=== PATIENT | female | born 1945 | race Two or more races ===

== ENCOUNTER → 2016-09-25 | Outpatient (CLI) | payer MEDICARE, BC, OTHER ==
--- NOTE | 2016-09-26 09:00 | BD ---
EXAMINATION TYPE: MG DEXA axial skeleton. DATE OF EXAM: 09/25/2016 11:03 AM CLINICAL HISTORY: Height: 59.5 inches Weight: 98 FRAX RISK QUESTIONS: Alcohol (3 or more units per day): no Family History (Parent hip fracture): unsure Glucocorticoids (More than 3mos): no (Ex: prednisone, prednisolone, methylprednisolone, dexamethasone, and hydrocortisone). History of Fracture in Adulthood: yes Secondary Osteoporosis: 1. Type 1 Diabetes: no, type II 2. Hyperthyroidism: no 3. Menopause before 45: no 4. Malnutrition: unsure 5. Chronic liver disease: no Rheumatoid Arthritis: no Current Tobacco Use: no RISK FACTORS HISTORY OF: Other Fractures since Age 52: yes, lower leg When: 8-9 years ago Family History of Osteoporosis: yes Drink Alcohol: occasionally Active: somewhat Diet low in dairy products/other sources of calcium: at least one serving a day (glass of milk) Postmenopausal woman: yes Take estrogen and/or progesterone medications: no Lost more than 2 inches in height since high school: unsure Frequent falls: no Poor Health: unsure Hyperparathyroidism: no Adrenal Insufficiency: no MEDICATIONS: Prednisone or other steroids: no Thyroid Medications: no Osteoporosis Medications: yes Which medication: Actonel How Long: at least since 2013 Additional Medications: Femara Additional History: Breast CA age 65, chemo, radiation leg pain EXAM MEASUREMENTS: Bone mineral densitometry was performed using the [employer] System. Bone mineral density as measured about the Lumbar spine is: ----- L1-L4(G/cm2): 0.911 T Score Values are as follows: ----- L2: -2.2 ----- L3: -2.9 ----- L4: -2.2 ----- L1-L4: -2.2 Bone mineral density has: Increased 0.4% since study of: 06/01/2013 Bone mineral density about the R hip (g/cm2): 0.885 Bone mineral density about the L hip (g/cm2): 0.861 T Score values are as follows: -----R Neck: -1.1 -----L Neck: -1.3 -----R Total: -1.2 -----L Total: -1.3 Bone mineral density has: Decreased -2.3% since study of: 06/01/2013 IMPRESSION: Osteopenia (T Score between -2.5 and -1 as noted by T score values L2, L4, Bilateral Necks & Bilater al Totals There is slightly increased risk of fracture and the patient may be considered for treatment. Re-Screen 2-5 years. Osteoporosis (T Score less than -2.5) as noted by T Score values at the L3 There is increased fracture risk and therapy is usually indicated based on age. Re-Screen 1-2 years NOTE: T-SCORE=SD OF THE YOUNG ADULT MEAN.
== END | disposition home or self-care (01) ==
LOC: RADBDWWP 09:36
PROVIDERS: ATTEND Internal Medicine Hematology & Oncology
DX: M85.80 Other specified disorders of bone density and structure, unspecified site (principal); M81.0 Age-related osteoporosis without current pathological fracture; C50.919 Malignant neoplasm of unspecified site of unspecified female breast; N95.1 Menopausal and female climacteric states
CPT/HCPCS: 77080

== ENCOUNTER → 2016-10-06 | Outpatient (CLI) | payer MEDICARE, BC | END | disposition home or self-care (01) | LOC: RADPETMAIN 12:25 | PROVIDERS: ATTEND Internal Medicine Hematology & Oncology | DX: Z53.9 Procedure and treatment not carried out, unspecified reason (principal) ==

== ENCOUNTER → 2016-10-13 | Outpatient (CLI) | payer MEDICARE, BC | END | disposition home or self-care (01) | LOC: RADPETMAIN 12:08 | PROVIDERS: ATTEND Internal Medicine Hematology & Oncology | DX: Z53.9 Procedure and treatment not carried out, unspecified reason (principal) ==

== ENCOUNTER → 2016-10-20 | Outpatient (CLI) | payer MEDICARE, BC ==
--- NOTE | 2016-10-22 10:48 | PE ---
Nuclear medicine PET/CT HISTORY: Breast carcinoma Patient received 17.8 mCi F-18 FDG intravenously and delayed scanning was performed from the skull ba se to the mid thighs. Localization and attenuation correction CT scan was performed. Exam correlated to previous CT chest abdomen pelvis 05/03/2015 Neck and chest: There is no hypermetabolic uptake evident. No evident adenopathy. Right-sided Port-A- Cath is present with the distal tip of the catheter within the cavoatrial junction level. Coronary ar berta calcifications are present. There is no pleural or pericardial effusion. Right upper lobe lung n odule measuring approximately 4 mm is again noted and is stable. Left upper lobe lung nodule measurin g approximately 5 mm is stable. There are dense dystrophic calcifications within the aorta. Breast ma ss is not evident. No hypermetabolic uptake within the breasts. Abdomen pelvis: There is no retroperitoneal adenopathy. No evident liver mass. Prominence of the adre nal glands left greater than right is noted. 5 mm hypodensity within the left lobe of the liver is st able and likely represents a cyst. No suspicious hypermetabolic uptake. Indeterminate 4 mm calcificat ion associated with the mid left kidney may be vascular. Osseous structures: Unremarkable. No suspicious hypermetabolic uptake. IMPRESSION: No abnormality is evident to suggest metastatic disease. Stable lung nodules.
== END | disposition home or self-care (01) ==
LOC: RADPETMAIN 07:35
PROVIDERS: ATTEND Internal Medicine Hematology & Oncology
DX: C50.919 Malignant neoplasm of unspecified site of unspecified female breast (principal); R91.8 Other nonspecific abnormal finding of lung field
CPT/HCPCS: 78815; A9552

== ENCOUNTER 2016-11-14 10:23 | Day surgery (SDC) | payer MEDICARE, BC ==
[2016-11-13 11:43] VITALS: BMI 21.9
[~2016-11-14 10:23] MED LIST: DEXAMETHASONE SOD PHOSPHATE 10 MG/ML 1 ML VIAL IV ONE; HYDROmorphone 1 MG/ML 1 ML SYRINGE IVP PRN; LACTATED RINGERS 1,000 ML IV SCH; LIDOCAINE 1% 20 ML VIAL (10MG/ML) FOR IV START INTRADERMA PRN; MIDAZOLAM 2 MG/2 ML VIAL IV PRN; ONDANSETRON 4 MG/2 ML VIAL IVP ONE; SCOPOLAMINE 1.5MG/72HR PATCH TRANSDERM ONE; ceFAZolin 2 GM in SODIUM CHLORIDE 0.9% 100 ML IVPB ONE
[2016-11-14 10:43] VITALS: RESP 16; TEMP 94.2
[2016-11-14 11:03] LABS: Glucose,Whole Blood 226 mg/dL (75-99)
[2016-11-14] MEDS ORDERED: LIDOCAINE 1% INJ 10MG/ML (20 ML MDV) ONE (12:22)
[2016-11-14] MEDS ORDERED: fentaNYL (PF) 50 MCG/ML 2 ML AMP ONE (12:22)
[2016-11-14] MEDS ORDERED: PROPOFOL 10 MG/ML 20 ML VIAL IV ONE (12:22)
[2016-11-14] MEDS ORDERED: MIDAZOLAM 2 MG/2 ML VIAL ONE (12:22)
[2016-11-14] MEDS ORDERED: BUPIVACAIN-EPI 0.5%-1:200,000 30 ML VIAL SQ ONE ×2 (12:47)
--- NOTE | 2016-11-14 13:45 | P.OP ---
Date of Procedure: 11/14/16 Preoperative Diagnosis: History of breast cancer Postoperative Diagnosis: Same Procedure(s) Performed: Right mediport removal Implants: Anesthesia: MAC, local Surgeon: Alessia Baltazar Pathology: none sent Condition: stable Disposition: PACU Indications for Procedure: 70 years old female status post breast cancer treatment presents for Mediport removal. Informed consent obtained and patient elected to undergo the procedure Operative Findings: Right subclavian Mediport removal Description of Procedure: The patient was brought to the operating room and placed in supine position with both arms out. IV sedation was given as per anesthesia team. Chlorhexidine was used to prep the neck and chest and sternal drapes applied. A timeout was performed to verify correct patient and correct procedure. 10 mL of local anesthetic was infiltrated along the prior incision. A #10 blade was used to make the incision. This was deepened to the subcu tissues tissue and the port was identified along with the connected catheter. The scar tissue around the catheter was removed. The port as well as the catheter was removed without any difficulty. Hemostasis was checked. Pressure was held for 5 minutes. The incision was closed in 2 layers using 3-0 Vicryl and 4-0 Monocryl. Dermabond skin glue applied. Sterile dressings applied. Patient tolerated the procedure well and was taken to post anesthesia care unit in stable condition
[2016-11-14 13:47] VITALS: BP 133/77; PULSE 88
[2016-11-14 13:50] LABS: Glucose,Whole Blood 212 mg/dL (75-99)
== END 2016-11-14 14:22 | disposition home or self-care (01) ==
LOC: OR 10:23
PROVIDERS: ATTEND Surgery
DX: Z45.2 Encounter for adjustment and management of vascular access device (principal); C50.919 Malignant neoplasm of unspecified site of unspecified female breast; Z92.3 Personal history of irradiation; Z92.21 Personal history of antineoplastic chemotherapy; E11.9 Type 2 diabetes mellitus without complications; I10 Essential (primary) hypertension; Z79.84 Long term (current) use of oral hypoglycemic drugs; Z79.2 Long term (current) use of antibiotics; Z79.899 Other long term (current) drug therapy; F17.200 Nicotine dependence, unspecified, uncomplicated
CPT/HCPCS: 36590; J2250; J1100; J0690; J2405; J2001; J3010; J2704

== ENCOUNTER → 2017-11-21 | Outpatient (CLI) | payer MEDICARE, BC ==
--- NOTE | 2017-11-21 10:23 | ECHOF ---
Referral Reason:R07.9 CHEST PAIN MEASUREMENTS -------- HEIGHT: 157.5 cm WEIGHT: 44.5 kg BP: IVSd: 0.9 cm (0.6 - 1.1) LVIDd: 4.4 cm (3.9 - 5.3) LVPWd: 1.0 cm (0.6 - 1.1) IVSs: 1.1 cm LVIDs: 4.0 cm LVPWs: 1.0 cm LAESV Index (A-L): 18.88 ml/m Ao Diam: 2.6 cm (2.0 - 3.7) AV Cusp: 1.6 cm (1.5 - 2.6) LA Diam: 2.8 cm (2.7 - 3.8) MV EXCURSION: 13.818 mm (> 18.000) MV EF SLOPE: 63 mm/s (70 - 150) EPSS: 2.3 cm MV E Mane: 0.96 m/s MV DecT: 141 ms MV A Mane: 1.16 m/s MV E/A Ratio: 0.83 AR PHT: 604 ms RAP: 5.00 mmHg RVSP: 9.18 mmHg FINDINGS -------- Sinus rhythm. This was a technically good study. The left ventricular size is normal. Left ventricular wall thickness is normal. Overall left vent ricular systolic function is mild-moderately impaired with, an EF between 40 - 45 %. The right ventricle is normal in size and function. The left atrium is normal in size. The right atrium is normal in size. The aortic valve is trileaflet and appears structurally normal. There is mild aortic regurgitation. The mitral valve leaflets are mildly thickened. Mild mitral regurgitation is present. Mild tricuspid regurgitation present. The right ventricular systolic pressure, as measured by Doppl er, is 9.18mmHg. Pulmonic valve appears structurally normal. The aortic root, ascending aorta and aortic arch are normal. Normal inferior vena cava with normal inspiratory collapse consistent with estimated right atrial pre ssure of 5 mmHg. The pericardium is normal. CONCLUSIONS -------- 1. Sinus rhythm. 2. This was a technically good study. 3. The left ventricular size is normal. 4. Left ventricular wall thickness is normal. 5. The right ventricle is normal in size and function. 6. The left atrium is normal in size. 7. The right atrium is normal in size. 8. The aortic valve is trileaflet and appears structurally normal. 9. There is mild aortic regurgitation. 10. The mitral valve leaflets are mildly thickened. 11. Mild mitral regurgitation is present. 12. Mild tricuspid regurgitation present. 13. The right ventricular systolic pressure, as measured by Doppler, is 9.18mmHg. 14. Pulmonic valve appears structurally normal. 15. The aortic root, ascending aorta and aortic arch are normal. 16. Normal inferior vena cava with normal inspiratory collapse consistent with estimated right atrial pressure of 5 mmHg. 17. The pericardium is normal. ORGAN FIXER: Ifrah Woods RDCS
--- NOTE | 2017-11-21 11:17 | ECHOS ---
STRESS ECHOCARDIOGRAM DATE OF SERVICE: 11/21/2017 INDICATIONS: Chest pain. BASELINE HEART RATE: 88 BASELINE BLOOD PRESSURE: 180/97 MAXIMUM HEART RATE: 135 MAXIMUM BLOOD PRESSURE: 138/81 85% MPHR: 128 100% MPHR: 151 METS: 3.6 MAXIMUM STAGE REACHED: I TOTAL EXERCISE TIME: 3:00 CLINICAL INFORMATION: Baseline EKG revealed normal sinus rhythm with a lot of baseline artifact and no clear- cut abnormalities, but some early repolarization changes were noted. Quality of this EKG is quite suboptimal. The EKG portion of the stress test is basically difficult to determine given the quality of the EKG. However, at 24 seconds in the recovery period at a heart rate of about 113 beats per minute, there were no changes to suggest ischemia and patient did not have any angina. Apparently, her heart rate has been reported as 135 was the peak heart rate, but I cannot see a heart rate of 135 on the EKG. This is therefore an inconclusive stress test with limited exercise capacity and an inconclusive stress test. Baseline echo images revealed [id number] global decrease in contractility. The estimated ejection fraction in the 40%-45% range. At peak exercise with a heart rate of 113 beats per minute, the ejection fraction increased by about 5%. However, possibility of nonischemic cardiomyopathy should be considered. There were no distinct wall motion abnormalities noted. IMPRESSION: 1. Limited exercise capacity. 2. Uninterpretable EKG portion of the stress test because of quality of EKG. 3. Inconclusive stress test because of inadequate chronotropic response based on the early recovery EKGs. 4. This is an inconclusive stress echo, but there is a suggestion that we may be dealing with a cardiomyopathy with a reduced ejection fraction at baseline that went up by about 5% with exercise. 5. If ischemia is suspected, this lady should have coronary angiography. MMODL / IJN: [id number] /
== END | disposition home or self-care (01) ==
LOC: RADECHMAIN 08:16
PROVIDERS: ATTEND Family Medicine
DX: I08.3 Combined rheumatic disorders of mitral, aortic and tricuspid valves (principal); R94.39 Abnormal result of other cardiovascular function study
CPT/HCPCS: 93306; 93351

== ENCOUNTER → 2017-11-28 | Outpatient (CLI) | payer MEDICARE, BC ==
[2017-11-28 10:38] LABS: Basophils % (A) 0 %; Eosinophils # (A) 0.1 k/uL (0-0.7); Eosinophils % (A) 1 %; HCT 44.1 % (34.0-46.0); HGB 15.2 gm/dL (11.4-16.0); Lymphocytes # (A) 2.5 k/uL (1.0-4.8); Lymphocytes % (A) 39 %; MCH 31.7 pg (25.0-35.0); MCHC 34.6 g/dL (31.0-37.0); MCV 91.5 fL (80.0-100.0); Mean Platelet Volume 7.3; Monocytes # (A) 0.5 k/uL (0-1.0); Monocytes % (A) 8 %; Neutrophils # (A) 3.2 k/uL (1.3-7.7); Neutrophils % (A) 50 %; Platelet Count 271 k/uL (150-450); RBC 4.81 m/uL (3.80-5.40); RDW 12.9 % (11.5-15.5); WBC 6.5 k/uL (3.8-10.6)
[2017-11-28 10:55] LABS: Anion Gap 9 mmol/L; Blood Urea Nitrogen 13 mg/dL (7-17); Carbon Dioxide 31 mmol/L (22-30); Chloride 99 mmol/L (98-107); Potassium 4.6 mmol/L (3.5-5.1); Sodium 139 mmol/L (137-145)
== END | disposition home or self-care (01) ==
LOC: LABPAT 10:07
PROVIDERS: ATTEND Internal Medicine Cardiovascular Disease
DX: Z01.812 Encounter for preprocedural laboratory examination (principal); I10 Essential (primary) hypertension; R94.39 Abnormal result of other cardiovascular function study
CPT/HCPCS: 36415; 80051; 82565; 84520; 85025

== ENCOUNTER 2017-12-09 08:03 | Day surgery (SDC) | payer MEDICARE ==
[2017-12-04 15:33] VITALS: BMI 20.5
[~2017-12-09 08:03] MED LIST changes: +ALPRAZolam 0.25 MG TAB PO PRN; +ALPRAZolam 0.5 MG TAB PO PRN; +ASPIRIN 325 MG TAB PO STA; +ATORVASTATIN 80 MG TAB PO STA; -DEXAMETHASONE SOD PHOSPHATE 10 MG/ML 1 ML VIAL IV ONE; -HYDROmorphone 1 MG/ML 1 ML SYRINGE IVP PRN; -LACTATED RINGERS 1,000 ML IV SCH; -LIDOCAINE 1% 20 ML VIAL (10MG/ML) FOR IV START INTRADERMA PRN; -MIDAZOLAM 2 MG/2 ML VIAL IV PRN; +NITROGLYCERIN SL TABS 0.4 MG TAB SUBLINGUAL PRN; -ONDANSETRON 4 MG/2 ML VIAL IVP ONE; -SCOPOLAMINE 1.5MG/72HR PATCH TRANSDERM ONE; +SODIUM CHLORIDE 0.9% 1,000 ML in EMPTY BAG 1 BAG IV ONE; -ceFAZolin 2 GM in SODIUM CHLORIDE 0.9% 100 ML IVPB ONE
[2017-12-09 08:30] LABS: Glucose,Whole Blood 218 mg/dL (75-99)
[2017-12-09 09:00] VITALS: PULSE 97; TEMP 98.3
[2017-12-09] MEDS ORDERED: ENALAPRILAT 1.25 MG/ML 1 ML VIAL IV ONE (09:35)
[2017-12-09] MEDS ORDERED: NITROGLYCERIN OINT 1 INCH/GM PACKET TOPICAL ONE (09:35)
[2017-12-09] MEDS ORDERED: MIDAZOLAM 2 MG/2 ML VIAL IV ONE (09:35)
[2017-12-09] MEDS ORDERED: LIDOCAINE 1% INJ 10MG/ML (20 ML MDV) SQ ONE (09:39)
[2017-12-09] MEDS ORDERED: IOPAMIDOL-370 125ML BTL INJ ONE (09:53)
[2017-12-09] MEDS ORDERED: RX INFO: IV CONTRAST WAS GIVEN 1 EACH MISC MISCELLANE PRN (10:04)
[2017-12-09] MEDS ORDERED: SODIUM CHLORIDE 0.9% 1,000 ML IV SCH (10:15)
--- NOTE | 2017-12-09 11:41 | CC ---
CARDIAC CATHETERIZATION REPORT INDICATION: Chest pain with abnormal stress test and cardiomyopathy. PROCEDURE NOTE: After obtaining informed consent, left heart catheterization and coronary angiogram are performed via the right femoral artery using standard Gloria catheters. Patient tolerated the procedure well without any obvious immediate complications. Blood pressure was elevated prior to cardiac cath and patient received nitro paste and intravenous Vasotec. The patient received moderate conscious sedation and total sedation time was 15 minutes. FINDINGS: 1. HEMODYNAMICS: Left ventricular end-diastolic pressure is 11 mm. There is no significant gradient across the aortic valve. 2. LEFT VENTRICULOGRAM: Left ventriculogram is performed in PADILLA position and shows normal left ventricular size and an ejection fraction of 50% to 55% with 1 to 2+ mitral regurgitation. 3. ANGIOGRAPHIC DATA: Left main coronary artery: Left main coronary artery is a short vessel and is free of stenosis. Divides into left anterior descending coronary artery and circumflex coronary artery. LAD and its branches are free of significant stenosis. Circumflex coronary artery shows mild nonobstructive disease. Right coronary artery is a large dominant vessel that shows mild stenosis involving midportion. CONCLUSIONS: Mild nonobstructive coronary artery disease involving right coronary artery and circumflex coronary artery with preserved left ventricular systolic function. MMODL / IJN: [id number] /
[2017-12-09 17:05] VITALS: RESP 18
[2017-12-09 17:10] VITALS: BP 137/71
[2017-12-10 16:11] LABS: Glucose,Whole Blood 168 mg/dL (75-99)
== END 2017-12-09 17:34 | disposition home or self-care (01) ==
LOC: CATHCVL 08:03 → MERGE 08:55 → EDSEX 08:55 → CATHCVL 17:34
PROVIDERS: ATTEND Internal Medicine Cardiovascular Disease
DX: I25.10 Atherosclerotic heart disease of native coronary artery without angina pectoris (principal); I34.0 Nonrheumatic mitral (valve) insufficiency; I10 Essential (primary) hypertension; E11.9 Type 2 diabetes mellitus without complications; F17.210 Nicotine dependence, cigarettes, uncomplicated; E78.2 Mixed hyperlipidemia; Z79.84 Long term (current) use of oral hypoglycemic drugs; Z82.49 Family history of ischemic heart disease and other diseases of the circulatory system; Z79.899 Other long term (current) drug therapy
CPT/HCPCS: 93458; C1894; C1769; J2250; J2001; Q9967

== ENCOUNTER → 2017-12-12 | Outpatient (CLI) | payer MEDICARE, BC ==
--- NOTE | 2017-12-12 13:36 | MM ---
Reason for exam: additional evaluation requested from prior study. Last mammogram was performed 1 year and 10 months ago. History: Patient is postmenopausal and has history of breast cancer at age 65. Lumpectomy of the left breast, 2011. Chemotherapy, 2011. Radiation therapy, 2011. Taking antineoplastic for 6 years beginning at age 65. Physical Findings: Nurse did not find any significant physical abnormalities on exam. MG 3D Diag Mammo W/Cad ALEX Bilateral CC and MLO view(s) were taken. Prior study comparison: February 17, 2016, left breast MG 3d diag mammo w/cad LT. July 22, 2015, bilateral MG 3d diag mammo w/cad ALEX. The breast tissue is extremely dense which could obscure a lesion on mammography. Stable benign calcifications. Stable post lumpectomy and radiation therapy changes left breast. No significant new findings when compared with previous films. These results were verbally communicated with the patient and result sheet given to the patient on 12/12/17. ASSESSMENT: Benign, BI-RAD 2 RECOMMENDATION: Follow-up diagnostic mammogram of both breasts in 1 year.
== END | disposition home or self-care (01) ==
LOC: RADMAMWWP 08:59
PROVIDERS: ATTEND Family Medicine
DX: Z85.3 Personal history of malignant neoplasm of breast (principal); Z78.0 Asymptomatic menopausal state; Z98.890 Other specified postprocedural states
CPT/HCPCS: 77066; G0279; 77062

== ENCOUNTER 2018-02-23 10:02 | Emergency (ER) | payer MEDICARE, OTHER ==
[2018-02-23 10:12] VITALS: TEMP 98.2
[2018-02-23 10:41] LABS: Glucose,Whole Blood 389 mg/dL (75-99)
[2018-02-23] MEDS ORDERED: SODIUM CHLORIDE 0.9% 1,000 ML IV STA (10:43)
[2018-02-23] MEDS ORDERED: SODIUM CHLORIDE 0.9% 500 ML IV STA ×2 (10:43→12:36)
--- NOTE | 2018-02-23 10:48 | ED ---
Weakness HPI - General Chief complaint: Weakness Stated complaint: High sugar/weak Time Seen by Provider: 02/23/18 10:30 Source: patient, family, RN notes reviewed Mode of arrival: wheelchair Limitations: no limitations - History of Present Illness Initial comments: This is a 72-year-old female history of breast cancer who presents with complaints of chronic abdominal pain but she's also had generalized weakness decreased oral intake blood sugar was 550 this morning. No overt fevers chills sweats cough nausea vomiting diarrhea. Abdominal pain is gone for couple weeks the family believes it was secondary to varicose of that the patient was being prescribed patient does not taken any since 3 days ago. She now is having the elevated blood sugar and weakness with some dizziness. She has a PET scan scheduled for the following weekend ordered by her oncologist. She also is had some polyuria and polydipsia. MD Complaint: generalized weakness - Related Data Home Medications Medication Instructions Recorded Confirmed Glimepiride [Amaryl] 2 mg PO DAILY 11/14/16 12/09/17 Irbesartan/Hydrochlorothiazide 1 each PO DAILY 11/14/16 11/14/16 [Irbesartan-Hctz 150-12.5 mg Tb] Aspirin [Adult Low Dose Aspirin EC] 81 mg PO DAILY 12/04/17 12/09/17 Irbesartan [Avapro] 150 mg PO DAILY 12/04/17 12/04/17 Letrozole 2.5 mg PO DAILY 12/04/17 12/04/17 Allergies Allergy/AdvReac Type Severity Reaction Status Date / Time No Known Allergies Allergy Verified 02/23/18 10:13 Review of Systems ROS Statement: Those systems with pertinent positive or pertinent negative responses have been documented in the HPI. ROS Other: All systems not noted in ROS Statement are negative. Past Medical History Past Medical History: Cancer, Diabetes Mellitus, GERD/Reflux, Hyperlipidemia Additional Past Medical History / Comment(s): Breast cancer 7 yrs ago. History of Any Multi-Drug Resistant Organisms: None Reported Past Surgical History: Breast Surgery Additional Past Surgical History / Comment(s): Partial breast removal. Past Anesthesia/Blood Transfusion Reactions: No Reported Reaction Past Psychological History: No Psychological Hx Reported Smoking Status: Current every day smoker Past Alcohol Use History: None Reported Past Drug Use History: None Reported - Past Family History Mother Family Medical History: No Reported History Brother(s) Family Medical History: Cancer General Exam - General Exam Comments Initial Comments: This is a well-developed asthenic appearing female who is awake alert oriented 3 Limitations: no limitations General appearance: alert, in no apparent distress Head exam: Present: atraumatic, normocephalic, normal inspection Eye exam: Present: normal appearance, PERRL, EOMI. Absent: scleral icterus, conjunctival injection, periorbital swelling ENT exam: Present: mucous membranes dry Neck exam: Present: normal inspection. Absent: tenderness, meningismus, lymphadenopathy Respiratory exam: Present: normal lung sounds bilaterally. Absent: respiratory distress, wheezes, rales, rhonchi, stridor Cardiovascular Exam: Present: normal rhythm, tachycardia, normal heart sounds. Absent: systolic murmur, diastolic murmur, rubs, gallop, clicks GI/Abdominal exam: Present: soft, normal bowel sounds. Absent: distended, tenderness, guarding, rebound, rigid Extremities exam: Present: normal inspection, full ROM, normal capillary refill. Absent: tenderness, pedal edema, joint swelling, calf tenderness Back exam: Present: normal inspection Neurological exam: Present: alert, oriented X3, CN II-XII intact Psychiatric exam: Present: normal affect, normal mood Skin exam: Present: warm, dry, intact, normal color. Absent: rash Course Vital Signs 02/23/18 02/23/18 10:08 12:00 Temperature 98.2 F Pulse Rate 115 H 89 Respiratory 18 20 Rate Blood Pressure 167/81 140/72 O2 Sat by Pulse 100 97 Oximetry EKG Findings - EKG Results: EKG: interpreted by ROSI, sinus rhythm (Sinus rhythm rate of 91 appear interval 128 QRS duration 72 QT since QTC 392/42 minimal voltage criteria for LVH evidence of septal changes of indeterminate age) Medical Decision Making - Medical Decision Making I did reevaluate patient several occasions she is feeling much improved after discussion with her and her daughter patient will be discharged she is keep follow-ups and return when necessary - Lab Data Result diagrams: 02/23/18 10:25 02/23/18 10:25 Lab Results 02/23/18 02/23/18 02/23/18 Range/Units 10:25 10:25 10:25 WBC 10.7 H (3.8-10.6) k/uL RBC 4.97 (3.80-5.40) m/uL Hgb 15.2 (11.4-16.0) gm/dL Hct 45.1 (34.0-46.0) % MCV 90.7 (80.0-100.0) fL MCH 30.5 (25.0-35.0) pg MCHC 33.7 (31.0-37.0) g/dL RDW 12.3 (11.5-15.5) % Plt Count 389 (150-450) k/uL Neutrophils % 75 % Lymphocytes % 15 % Monocytes % 8 % Eosinophils % 1 % Basophils % 0 % Neutrophils # 8.0 H (1.3-7.7) k/uL Lymphocytes # 1.6 (1.0-4.8) k/uL Monocytes # 0.9 (0-1.0) k/uL Eosinophils # 0.1 (0-0.7) k/uL Basophils # 0.0 (0-0.2) k/uL PT (9.0-12.0) sec INR (<1.2) APTT (22.0-30.0) sec Sodium 125 L (137-145) mmol/L Potassium 3.6 (3.5-5.1) mmol/L Chloride 78 L (98-107) mmol/L Carbon Dioxide 36 H (22-30) mmol/L Anion Gap 11 mmol/L BUN 17 (7-17) mg/dL Creatinine 0.70 (0.52-1.04) mg/dL Est GFR (CKD-EPI)AfAm >90 (>60 ml/min/1.73 sqM) Est GFR (CKD-EPI)NonAf 88 (>60 ml/min/1.73 sqM) Glucose 441 H (74-99) mg/dL POC Glucose (mg/dL) (75-99) mg/dL POC Glu Skin Piler ID Plasma Lactic Acid Ross (0.7-2.0) mmol/L Calcium 10.0 (8.4-10.2) mg/dL Magnesium 2.0 (1.6-2.3) mg/dL Total Bilirubin 0.5 (0.2-1.3) mg/dL AST 14 (14-36) U/L ALT 21 (9-52) U/L Alkaline Phosphatase 57 (38-126) U/L Total Creatine Kinase 34 (30-135) U/L CK-MB (CK-2) 0.7 (0.0-2.4) ng/mL CK-MB (CK-2) Rel Index 2.1 Troponin I 0.018 (0.000-0.034) ng/mL Total Protein 6.6 (6.3-8.2) g/dL Albumin 3.8 (3.5-5.0) g/dL Urine Color Urine Appearance (Clear) Urine pH (5.0-8.0) Ur Specific [place] (1.001-1.035) Urine Protein (Negative) Urine Glucose (UA) (Negative) Urine Ketones (Negative) Urine Blood (Negative) Urine Nitrite (Negative) Urine Bilirubin (Negative) Urine Urobilinogen (<2.0) mg/dL Ur Leukocyte Esterase (Negative) Acetone, Qual (Negative) 02/23/18 02/23/18 02/23/18 Range/Units 10:25 10:25 10:25 WBC (3.8-10.6) k/uL RBC (3.80-5.40) m/uL Hgb (11.4-16.0) gm/dL Hct (34.0-46.0) % MCV (80.0-100.0) fL MCH (25.0-35.0) pg MCHC (31.0-37.0) g/dL RDW (11.5-15.5) % Plt Count (150-450) k/uL Neutrophils % % Lymphocytes % % Monocytes % % Eosinophils % % Basophils % % Neutrophils # (1.3-7.7) k/uL Lymphocytes # (1.0-4.8) k/uL Monocytes # (0-1.0) k/uL Eosinophils # (0-0.7) k/uL Basophils # (0-0.2) k/uL PT 10.2 (9.0-12.0) sec INR 1.0 (<1.2) APTT 22.7 (22.0-30.0) sec Sodium (137-145) mmol/L Potassium (3.5-5.1) mmol/L Chloride (98-107) mmol/L Carbon Dioxide (22-30) mmol/L Anion Gap mmol/L BUN (7-17) mg/dL Creatinine (0.52-1.04) mg/dL Est GFR (CKD-EPI)AfAm (>60 ml/min/1.73 sqM) Est GFR (CKD-EPI)NonAf (>60 ml/min/1.73 sqM) Glucose (74-99) mg/dL POC Glucose (mg/dL) (75-99) mg/dL POC Glu Skin Piler ID Plasma Lactic Acid Ross 1.8 (0.7-2.0) mmol/L Calcium (8.4-10.2) mg/dL Magnesium (1.6-2.3) mg/dL Total Bilirubin (0.2-1.3) mg/dL AST (14-36) U/L ALT (9-52) U/L Alkaline Phosphatase (38-126) U/L Total Creatine Kinase (30-135) U/L CK-MB (CK-2) (0.0-2.4) ng/mL CK-MB (CK-2) Rel Index Troponin I (0.000-0.034) ng/mL Total Protein (6.3-8.2) g/dL Albumin (3.5-5.0) g/dL Urine Color Urine Appearance (Clear) Urine pH (5.0-8.0) Ur Specific [place] (1.001-1.035) Urine Protein (Negative) Urine Glucose (UA) (Negative) Urine Ketones (Negative) Urine Blood (Negative) Urine Nitrite (Negative) Urine Bilirubin (Negative) Urine Urobilinogen (<2.0) mg/dL Ur Leukocyte Esterase (Negative) Acetone, Qual Negative (Negative) 02/23/18 02/23/18 02/23/18 Range/Units 10:36 12:37 12:50 WBC (3.8-10.6) k/uL RBC (3.80-5.40) m/uL Hgb (11.4-16.0) gm/dL Hct (34.0-46.0) % MCV (80.0-100.0) fL MCH (25.0-35.0) pg MCHC (31.0-37.0) g/dL RDW (11.5-15.5) % Plt Count (150-450) k/uL Neutrophils % % Lymphocytes % % Monocytes % % Eosinophils % % Basophils % % Neutrophils # (1.3-7.7) k/uL Lymphocytes # (1.0-4.8) k/uL Monocytes # (0-1.0) k/uL Eosinophils # (0-0.7) k/uL Basophils # (0-0.2) k/uL PT (9.0-12.0) sec INR (<1.2) APTT (22.0-30.0) sec Sodium (137-145) mmol/L Potassium (3.5-5.1) mmol/L Chloride (98-107) mmol/L Carbon Dioxide (22-30) mmol/L Anion Gap mmol/L BUN (7-17) mg/dL Creatinine (0.52-1.04) mg/dL Est GFR (CKD-EPI)AfAm (>60 ml/min/1.73 sqM) Est GFR (CKD-EPI)NonAf (>60 ml/min/1.73 sqM) Glucose (74-99) mg/dL POC Glucose (mg/dL) 389 H 277 H (75-99) mg/dL POC Glu Skin Piler Krystal Huynh Andrew Plasma Lactic Acid Ross (0.7-2.0) mmol/L Calcium (8.4-10.2) mg/dL Magnesium (1.6-2.3) mg/dL Total Bilirubin (0.2-1.3) mg/dL AST (14-36) U/L ALT (9-52) U/L Alkaline Phosphatase (38-126) U/L Total Creatine Kinase (30-135) U/L CK-MB (CK-2) (0.0-2.4) ng/mL CK-MB (CK-2) Rel Index Troponin I (0.000-0.034) ng/mL Total Protein (6.3-8.2) g/dL Albumin (3.5-5.0) g/dL Urine Color Colorless Urine Appearance Clear (Clear) Urine pH 6.5 (5.0-8.0) Ur Specific [place] 1.002 (1.001-1.035) Urine Protein Negative (Negative) Urine Glucose (UA) 4+ H (Negative) Urine Ketones Negative (Negative) Urine Blood Negative (Negative) Urine Nitrite Negative (Negative) Urine Bilirubin Negative (Negative) Urine Urobilinogen <2.0 (<2.0) mg/dL Ur Leukocyte Esterase Negative (Negative) Acetone, Qual (Negative) - Radiology Data Radiology results: image reviewed Interpreted by me: Did review the imaging and report no acute findings. Disposition Clinical Impression: Abdominal pain, Dehydration, Hyperglycemia Disposition: HOME SELF-CARE Condition: Good Instructions: Abdominal Pain (ED), Dehydration (ED) Is patient prescribed a controlled substance at d/c from ED?: No Referrals: Bradford Wallis MD [Primary Care Provider] - 1-2 days
[2018-02-23 10:54] LABS: Basophils % (A) 0 %; Eosinophils # (A) 0.1 k/uL (0-0.7); Eosinophils % (A) 1 %; HCT 45.1 % (34.0-46.0); HGB 15.2 gm/dL (11.4-16.0); Lymphocytes # (A) 1.6 k/uL (1.0-4.8); Lymphocytes % (A) 15 %; MCH 30.5 pg (25.0-35.0); MCHC 33.7 g/dL (31.0-37.0); MCV 90.7 fL (80.0-100.0); Mean Platelet Volume 7.6; Monocytes # (A) 0.9 k/uL (0-1.0); Monocytes % (A) 8 %; Neutrophils % (A) 75 %; Platelet Count 389 k/uL (150-450); RBC 4.97 m/uL (3.80-5.40); RDW 12.3 % (11.5-15.5); WBC 10.7 k/uL (3.8-10.6)
[2018-02-23 11:04] LABS: ALT 21 U/L (9-52); AST 14 U/L (14-36); Albumin 3.8 g/dL (3.5-5.0); Alkaline Phosphatase 57 U/L (38-126); Anion Gap 11 mmol/L; Blood Urea Nitrogen 17 mg/dL (7-17); Carbon Dioxide 36 mmol/L (22-30); Chloride 78 mmol/L (98-107); Glucose 441 mg/dL (74-99); Potassium 3.6 mmol/L (3.5-5.1); Sodium 125 mmol/L (137-145); Total Bilirubin 0.5 mg/dL (0.2-1.3); Total Protein 6.6 g/dL (6.3-8.2)
--- NOTE | 2018-02-23 11:08 | XR ---
EXAMINATION TYPE: XR chest 2V DATE OF EXAM: 02/23/2018 HISTORY: Weakness. REFERENCE: Previous study dated 02/03/2015. FINDINGS: The patient's MediPort has been removed. The lungs are clear. Pleural space are clear. The heart is not enlarged. IMPRESSION: NO ACUTE INTRATHORACIC DISEASE.
[2018-02-23 11:23] LABS: Partial Thromboplastin Time 22.7 sec (22.0-30.0); Prothrombin Time 10.2 sec (9.0-12.0)
[2018-02-23 11:42] LABS: Creatine Kinase MB 0.7 ng/mL (0.0-2.4); Troponin I 0.018 ng/mL (0.000-0.034)
[2018-02-23] MEDS ORDERED: INSULIN REGULAR 100 UNIT/ML VIAL SQ ONE (12:38)
[2018-02-23 12:52] VITALS: BP 140/72; PULSE 89; RESP 20
[2018-02-23 12:53] LABS: Glucose,Whole Blood 277 mg/dL (75-99)
[2018-02-23 13:00] LABS: Appearance,Urine Clear (Clear); Bilirubin,Urine Negative (Negative); Blood,Urine Negative (Negative); Color,Urine Colorless; Glucose,Urine (UA) 4+ (Negative); Ketones,Urine Negative (Negative); Leukocyte Esterase,Urine Negative (Negative); Nitrite,Urine Negative (Negative); PH, Urine 6.5 (5.0-8.0); Protein,Urine Negative (Negative); Specific Gravity,Urine 1.002 (1.001-1.035); Urobilinogen,Urine <2.0 mg/dL (<2.0)
== END 2018-02-23 13:41 | disposition home or self-care (01) ==
LOC: EC 10:02
DX: E11.65 Type 2 diabetes mellitus with hyperglycemia (principal); E86.0 Dehydration; F17.200 Nicotine dependence, unspecified, uncomplicated; Z85.3 Personal history of malignant neoplasm of breast; Z79.82 Long term (current) use of aspirin; Z79.84 Long term (current) use of oral hypoglycemic drugs; Z79.899 Other long term (current) drug therapy
CPT/HCPCS: 36415; 71046; 80053; 81003; 82009; 82550; 82553; 83605; 83735; 84484; 85025; 85610; 85730; 93005; 96360; 96361; 99285

== ENCOUNTER 2018-02-25 15:24 | Inpatient (IN) | payer MEDICARE, OTHER ==
[2018-02-25] MEDS ORDERED: ONDANSETRON 4 MG/2 ML VIAL IVP STA (16:04)
[2018-02-25] MEDS ORDERED: SODIUM CHLORIDE 0.9% 1,000 ML IV ONE (16:04)
[2018-02-25] MEDS ORDERED: KETOROLAC 30 MG/ML 1 ML VIAL IVP STA (16:04)
[2018-02-25 16:18] LABS: Basophils % (A) 0 %; Eosinophils # (A) 0.1 k/uL (0-0.7); Eosinophils % (A) 1 %; HCT 43.1 % (34.0-46.0); HGB 14.7 gm/dL (11.4-16.0); Lymphocytes # (A) 2.4 k/uL (1.0-4.8); Lymphocytes % (A) 25 %; MCH 30.5 pg (25.0-35.0); MCHC 34.1 g/dL (31.0-37.0); MCV 89.5 fL (80.0-100.0); Mean Platelet Volume 7.2; Monocytes # (A) 0.7 k/uL (0-1.0); Monocytes % (A) 7 %; Neutrophils # (A) 6.5 k/uL (1.3-7.7); Neutrophils % (A) 65 %; Platelet Count 378 k/uL (150-450); RBC 4.82 m/uL (3.80-5.40); RDW 12.3 % (11.5-15.5)
[2018-02-25 16:28] LABS: ALT 14 U/L (9-52); AST 16 U/L (14-36); Albumin 3.9 g/dL (3.5-5.0); Alkaline Phosphatase 57 U/L (38-126); Amylase 116 U/L (30-110); Anion Gap 13 mmol/L; Blood Urea Nitrogen 12 mg/dL (7-17); Calcium 9.7 mg/dL (8.4-10.2); Carbon Dioxide 31 mmol/L (22-30); Chloride 91 mmol/L (98-107); Glucose 260 mg/dL (74-99); Lipase 66 U/L (23-300); Potassium 3.4 mmol/L (3.5-5.1); Sodium 135 mmol/L (137-145); Total Bilirubin 0.5 mg/dL (0.2-1.3); Total Protein 6.9 g/dL (6.3-8.2)
[2018-02-25] MEDS ORDERED: MAG HYDROX/AL HYDROX/SIMETH 30 ML, HYOSCYAMINE ELIXIR 10 ML, CIMETIDINE HCL 300 MG, LID... PO STA ×4 (16:42)
[2018-02-25 16:52] LABS: Creatine Kinase MB 0.7 ng/mL (0.0-2.4); Troponin I 0.016 ng/mL (0.000-0.034)
--- NOTE | 2018-02-25 17:02 | ED ---
Abdominal Pain HPI - General Source: patient, RN notes reviewed, old records reviewed Mode of arrival: ambulatory Limitations: no limitations <David Jose - Last Filed: 02/25/18 19:15> <German Espino - Last Filed: 02/26/18 07:10> - General Chief Complaint: Abdominal Pain Stated Complaint: abd pain Time Seen by Provider: 02/25/18 15:59 - History of Present Illness Initial Comments: 72-year-old female presents emergency Department chief complaint of epigastric pain. Patient states that this pain started yesterday worse today. Patient was in the emergency department a couple days ago for hyperglycemia. Patient states that she follow-up with her PCP today who sent her here for concerns of possible gallbladder disease or biliary colic. Patient states that she's had nausea vomiting and pain. Denies any chest pain or shortness breath, headache, dizziness, diarrhea constipation. Patient states that she's had no prior abdominal surgeries. Patient denies any dysuria no hematuria. (David Jose) - Related Data Home Medications Medication Instructions Recorded Confirmed Aspirin [Adult Low Dose Aspirin EC] 81 mg PO DAILY 12/04/17 02/25/18 Irbesartan [Avapro] 150 mg PO DAILY 12/04/17 02/25/18 Letrozole 2.5 mg PO DAILY 12/04/17 02/25/18 Nateglinide 60 mg PO DAILY 02/25/18 02/25/18 Allergies Allergy/AdvReac Type Severity Reaction Status Date / Time No Known Allergies Allergy Verified 02/25/18 16:09 Review of Systems ROS Other: All systems not noted in ROS Statement are negative. <David Jose - Last Filed: 02/25/18 19:15> ROS Other: All systems not noted in ROS Statement are negative. <German Espino - Last Filed: 02/26/18 07:10> ROS Statement: Those systems with pertinent positive or pertinent negative responses have been documented in the HPI. Past Medical History Past Medical History: Cancer, Diabetes Mellitus, GERD/Reflux, Hyperlipidemia Additional Past Medical History / Comment(s): Breast cancer 7 yrs ago. History of Any Multi-Drug Resistant Organisms: None Reported Past Surgical History: Breast Surgery Additional Past Surgical History / Comment(s): Partial breast removal. Past Anesthesia/Blood Transfusion Reactions: No Reported Reaction Past Psychological History: No Psychological Hx Reported Smoking Status: Current every day smoker Past Alcohol Use History: None Reported Past Drug Use History: None Reported - Past Family History Mother Family Medical History: No Reported History Brother(s) Family Medical History: Cancer <David Jose - Last Filed: 02/25/18 19:15> General Exam Limitations: no limitations General appearance: alert, in no apparent distress Head exam: Present: atraumatic, normocephalic, normal inspection Eye exam: Present: normal appearance, PERRL, EOMI. Absent: scleral icterus, conjunctival injection, periorbital swelling ENT exam: Present: normal exam, normal oropharynx, mucous membranes moist Neck exam: Present: normal inspection, full ROM. Absent: tenderness, meningismus, lymphadenopathy Respiratory exam: Present: normal lung sounds bilaterally. Absent: respiratory distress, wheezes, rales, rhonchi, stridor Cardiovascular Exam: Present: regular rate, normal rhythm, normal heart sounds. Absent: systolic murmur, diastolic murmur, rubs, gallop, clicks GI/Abdominal exam: Present: soft, tenderness (Epigastric tenderness), normal bowel sounds. Absent: distended, guarding, rebound, rigid Back exam: Absent: CVA tenderness (R), CVA tenderness (L) <David Jose M - Last Filed: 02/25/18 19:15> Vital Signs 02/25/18 02/25/18 02/25/18 15:30 18:00 19:00 Temperature 98.6 F Pulse Rate 101 H 89 89 Pulse Rate [ Right] Respiratory 18 20 20 Rate Blood Pressure 157/87 152/71 135/65 Blood Pressure [Right Arm] O2 Sat by Pulse 99 98 97 Oximetry 02/25/18 02/25/18 20:26 20:43 Temperature 98.3 F 100.4 F H Pulse Rate 68 Pulse Rate [ 91 Right] Respiratory 18 20 Rate Blood Pressure 121/69 Blood Pressure 125/70 [Right Arm] O2 Sat by Pulse 96 97 Oximetry Medical Decision Making - Lab Data Result diagrams: 02/25/18 16:05 02/25/18 16:05 <David Jose M - Last Filed: 02/25/18 19:15> - Lab Data Result diagrams: 02/25/18 16:05 02/25/18 16:05 <German Espino - Last Filed: 02/26/18 07:10> - Medical Decision Making 72-year-old female presenting from primary care office with abdominal pain. Workup in the emergency department reveals dilated common bile duct on ultrasound, recommended CT with contrast, this is obtained and again is showing dilatation of the biliary tree. Patient's AST and ALTs as well as alk phos are normal. She has a normal lipase. CT finding does recommend evaluation by MRCP. I discussed case with patient's primary care physician, she will be admitted with GI on consult to decide the need for further imaging or evaluation. (German Espino) - Lab Data Lab Results 02/25/18 02/25/18 02/25/18 Range/Units 16:05 16:05 16:05 WBC 10.0 (3.8-10.6) k/uL RBC 4.82 (3.80-5.40) m/uL Hgb 14.7 (11.4-16.0) gm/dL Hct 43.1 (34.0-46.0) % MCV 89.5 (80.0-100.0) fL MCH 30.5 (25.0-35.0) pg MCHC 34.1 (31.0-37.0) g/dL RDW 12.3 (11.5-15.5) % Plt Count 378 (150-450) k/uL Neutrophils % 65 % Lymphocytes % 25 % Monocytes % 7 % Eosinophils % 1 % Basophils % 0 % Neutrophils # 6.5 (1.3-7.7) k/uL Lymphocytes # 2.4 (1.0-4.8) k/uL Monocytes # 0.7 (0-1.0) k/uL Eosinophils # 0.1 (0-0.7) k/uL Basophils # 0.0 (0-0.2) k/uL Sodium 135 L (137-145) mmol/L Potassium 3.4 L (3.5-5.1) mmol/L Chloride 91 L (98-107) mmol/L Carbon Dioxide 31 H (22-30) mmol/L Anion Gap 13 mmol/L BUN 12 (7-17) mg/dL Creatinine 0.57 (0.52-1.04) mg/dL Est GFR (CKD-EPI)AfAm >90 (>60 ml/min/1.73 sqM) Est GFR (CKD-EPI)NonAf >90 (>60 ml/min/1.73 sqM) Glucose 260 H (74-99) mg/dL Calcium 9.7 (8.4-10.2) mg/dL Total Bilirubin 0.5 (0.2-1.3) mg/dL AST 16 (14-36) U/L ALT 14 (9-52) U/L Alkaline Phosphatase 57 (38-126) U/L Total Creatine Kinase 31 (30-135) U/L CK-MB (CK-2) 0.7 (0.0-2.4) ng/mL CK-MB (CK-2) Rel Index 2.3 Troponin I 0.016 (0.000-0.034) ng/mL Total Protein 6.9 (6.3-8.2) g/dL Albumin 3.9 (3.5-5.0) g/dL Amylase 116 H (30-110) U/L Lipase 66 (23-300) U/L Disposition <David Jose - Last Filed: 02/25/18 19:15> <German Espino - Last Filed: 02/26/18 07:10> Clinical Impression: Dilated intrahepatic bile duct, Peptic ulcer Disposition: ADMITTED IP TO THIS HOSP Condition: Stable
--- NOTE | 2018-02-25 17:11 | US ---
EXAMINATION TYPE: US gallbladder DATE OF EXAM: 02/25/2018 CLINICAL HISTORY: Pain. Epigastric pain. Patient is not NPO. EXAM MEASUREMENTS: Liver Length: 14.9 cm Gallbladder Wall: 0.2 cm CBD: 0.8 cm CHD: 1.1 cm Right Kidney: 10.2 x 5.0 x 4.3 cm Pancreas: wnl, main pancreatic duct= 1.6 mm Liver: left lobe cystic appearing lesion = 0.4 x 0.4 x 0.3 cm Gallbladder: not fully distended due to not being NPO, limited visualization Evidence for sonographic Verma's sign: neg CBD: dilated CHD: dilated Right Kidney: lower pole cystic appearing lesion - 0.5 x 0.5 x 0.6 cm. Medial anechoic lesion seen at hilum- 1.8 cm. IMPRESSION: Extrahepatic biliary tree dilation, with etiology unclear. Would suggest follow-up characterization u sing CT abdomen without and with intravenous contrast.
--- NOTE | 2018-02-25 18:48 | CT ---
EXAMINATION TYPE: CT abdomen pelvis wo/w con DATE OF EXAM: 02/25/2018 COMPARISON: Ultrasound 02/25/2018: CT 05/03/2015 HISTORY: Abdominal pain CT DLP: 464.8 mGycm Automated exposure control for dose reduction was used. TECHNIQUE: Helical acquisition of images was performed from the lung bases through the pelvis. CONTRAST: Performed without Oral Contrast and without and with IV Contrast, patient injected with 100 mL of Isovue 300. FINDINGS: LUNG BASES: No significant abnormality is appreciated. LIVER/GB/ PANCREAS: At the time of the 05/03/2015 CT the extrahepatic biliary tree was dilated, similar to the present study. However, the present dilatation appears slightly more conspicuous; LFT correlation will be abl e to delineate what is chronic versus what may be subacute/acute. The more impressive finding is edematous infiltration of the perigastric-duodenal soft tissue plane s, raising suspicion for the diagnosis of acute peptic ulcer disease. This can be corroborated with e ndoscopy. NOTE: There is a paucity of extraperitoneal adipose throughout the abdomen and pelvis, which makes it difficult to delineate structures. In this abdominal setting, MRI/MRCP can be very useful as a confi rmatory imaging assessment. PERITONEAL CAVITY: No abnormal fluid collection or pneumoperitoneum this time. SPLEEN: No significant abnormality is seen. ADRENALS: No significant abnormality is seen. KIDNEYS: No significant abnormality is seen. ABDOMINAL ADENOPATHY: None visualized REPRODUCTIVE ORGANS: No significant abnormality is seen. Redemonstrated retroverted uterus, with fund us right of midline. URINARY BLADDER: No significant abnormality is seen. PELVIC ADENOPATHY: None visualized. OSSEOUS STRUCTURES: No significant abnormality is seen. BOWEL: No significant abnormality is seen. VASCULATURE: Nonaneurysmal atherosclerotic changes are noted throughout the arterial anatomy. No acut e vascular findings. IMPRESSION: 1. SUSPECT ACUTE PEPTIC ULCER DISEASE DISCUSSED. 2. DILATED INTRAHEPATIC BILIARY TREE DISCUSSED.
[2018-02-25] MEDS ORDERED: MAG HYDROX/AL HYDROX/SIMETH 30 ML CUP PO PRN (19:16)
[2018-02-25] MEDS ORDERED: ACETAMINOPHEN TAB 325 MG TAB PO PRN (19:16)
[2018-02-25] MEDS ORDERED: ONDANSETRON 4 MG/2 ML VIAL IVP PRN (19:16)
[2018-02-25 21:28] VITALS: BMI 19.0
[2018-02-25 21:32] LABS: Glucose,Whole Blood 234 mg/dL (75-99)
[2018-02-25] MEDS: PANTOPRAZOLE 40 MG/10 ML VIAL IV SCH (22:10)
[2018-02-25] MEDS ORDERED: KETOROLAC 30 MG/ML 1 ML VIAL IVP PRN (22:15)
[2018-02-25] MEDS: SODIUM CHLORIDE 0.9% 1,000 ML with POTASSIUM CHLORIDE 20 MEQ IV SCH ×2 (23:05)
[2018-02-25 23:17] LABS: Appearance,Urine Clear (Clear); Bilirubin,Urine Negative (Negative); Blood,Urine Negative (Negative); Color,Urine Light Yellow; Glucose,Urine (UA) 3+ (Negative); Ketones,Urine Negative (Negative); Leukocyte Esterase,Urine Negative (Negative); Nitrite,Urine Negative (Negative); Protein,Urine Negative (Negative); Specific Gravity,Urine 1.043 (1.001-1.035); Urobilinogen,Urine <2.0 mg/dL (<2.0)
[2018-02-26] MEDS ORDERED: KETOROLAC 30 MG/ML 1 ML VIAL IVP SCH
[2018-02-26 06:57] LABS: Glucose,Whole Blood 149 mg/dL (75-99)
[2018-02-26] MEDS: INSULIN ASPART 100 UNIT/ML 1 ML 10 ML VIAL SQ SCH ×4 (08:05→20:46)
[2018-02-26] MEDS: PANTOPRAZOLE 40 MG/10 ML VIAL IV SCH ×2 (08:06→20:51)
[2018-02-26] MEDS: LETROZOLE 2.5 MG TAB PO SCH (08:06)
[2018-02-26] MEDS: LOSARTAN 50 MG TAB PO SCH (08:06)
--- NOTE | 2018-02-26 10:23 | P.CONS ---
History of Present Illness - Reason for Consult Consult date: 02/26/18 Dilated CBD epigastric pain Requesting physician: Bradford Wallis - Chief Complaint Epigastric abdominal pain - History of Present Illness 72-year-old female patient of Dr. Bradford Wallis with a past medical history of GERD, nicotine cigarette dependency, diabetes mellitus, breast cancer, and hyperlipidemia. Presents with 2 week history of severe epigastric pain with intermittent nausea and a few episodes of nontender bloody emesis. Denies hematemesis hematochezia melena fever chills. 10 pound weight loss over last month due to decreased appetite. No NSAIDs or aspirin or alcohol. CT abdomen and pelvis reported extra hepatic biliary tree dilation similar to previous study April 2015. However the present dilatation appears slightly more conspicuous. LFTs within normal limits. Edematous infiltration of the perigastric duodenal soft tissue planes raising suspicion for diagnosis of acute peptic ulcer disease. No history of peptic ulcer disease or EGD. White count 10. Hemoglobin 14.7. BUN 12. Creatinine 0.5. Total bilirubin 0.5. AST 16. ALT 14. AP 57. Lipase 66. Amylase 116. Review of Systems Constitutional: Denies fever, chills, sweats, 10 pound weight loss 1 month. HEENT: Negative for migraines, blurred vision or loss, earaches, drainage, tinnitus, oral mucosal lesions, dysphagia, or odynophagia. CARDIAC: Negative for chest pain, arrhythmias, or palpitation. RESPIRATORY: Negative for shortness of breath, hemoptysis, cough, or sputum production. GI: See HPI for pertinent findings. : Negative for hematuria, urgency, frequency, polyuria, or dysuria. GYNc: Negative vaginal discharge. MUSCULOSKELETAL: Negative for muscle aches, swelling, arthritis, and arthralgias. NEUROLOGIC: Negative for stroke or TIA. ENDOCRINE: Negative for thyroid problems. SKIN: Negative for rash or itching. PSYCHIATRIC: Negative history for depression and anxiety Past Medical History Past Medical History: Cancer, Diabetes Mellitus, GERD/Reflux, Hyperlipidemia Additional Past Medical History / Comment(s): Breast cancer 7 yrs ago. History of Any Multi-Drug Resistant Organisms: None Reported Past Surgical History: Breast Surgery Additional Past Surgical History / Comment(s): Partial breast removal. Past Anesthesia/Blood Transfusion Reactions: No Reported Reaction Past Psychological History: No Psychological Hx Reported Smoking Status: Current every day smoker Past Alcohol Use History: None Reported Additional Past Alcohol Use History / Comment(s): Has been smoking for 48-49 yrs , 5 cigarettes per day. Past Drug Use History: None Reported - Past Family History Mother Family Medical History: No Reported History Brother(s) Family Medical History: Cancer Medications and Allergies Home Medications Medication Instructions Recorded Confirmed Type Aspirin [Adult Low Dose Aspirin EC] 81 mg PO DAILY 12/04/17 02/25/18 History Irbesartan [Avapro] 150 mg PO DAILY 12/04/17 02/25/18 History Letrozole 2.5 mg PO DAILY 12/04/17 02/25/18 History Nateglinide 60 mg PO DAILY 02/25/18 02/25/18 History Allergies Allergy/AdvReac Type Severity Reaction Status Date / Time No Known Allergies Allergy Verified 02/25/18 16:09 Physical Exam Vitals: Vital Signs Temp Pulse Pulse Resp BP BP Pulse Ox 02/26/18 08:17 16 02/26/18 07:20 98.6 F 72 16 125/71 97 02/26/18 03:03 66 16 02/26/18 00:44 98.4 F 66 16 110/62 98 02/25/18 23:20 91 20 02/25/18 20:43 100.4 F H 68 20 121/69 97 02/25/18 20:26 98.3 F 91 18 125/70 96 02/25/18 19:00 89 20 135/65 97 02/25/18 18:00 89 20 152/71 98 02/25/18 15:30 98.6 F 101 H 18 157/87 99 Intake and Output 02/25/18 02/26/18 02/26/18 22:59 06:59 14:59 Intake Total 600 Balance 600 Intake: Intake, IV Titration 600 Amount Sodium Chloride 0.9% 1, 600 000 ml @ 75 mls/hr IV . [id number] JEAN with Potassium Chloride 20 meq Rx#:[id number] Other: # Voids 2 2 Weight 39.916 kg 39.916 kg 39.916 kg General appearance: The patient is alert, oriented, in no acute distress. HET: Head is normocephalic and atraumatic. Pupils are equal and reactive. Oropharynx is clear without lesions. Neck: Supple without lymphadenopathy. Trachea midline. Heart: S1 S2. Regular rate and rhythm. Lungs: No crackles or wheezes are heard. Abdomen: Soft, mild midepigastric tenderness, nondistended with bowel sounds. No peritoneal signs. No palpable organomegaly or masses. Extremities: Normal skin color and turgor. No cyanosis, rash, ulceration, clubbing, or edema. Radial and pedal pulses are 2/4 bilaterally. Neurological: No focal deficits. Strength and sensation are grossly intact. Results CBC & Chem 7: 02/25/18 16:05 02/25/18 16:05 Labs: Abnormal Lab Results - Last 24 Hours (Table) 02/25/18 02/25/18 02/25/18 Range/Units 16:05 21:31 22:00 Sodium 135 L (137-145) mmol/L Potassium 3.4 L (3.5-5.1) mmol/L Chloride 91 L (98-107) mmol/L Carbon Dioxide 31 H (22-30) mmol/L Glucose 260 H (74-99) mg/dL POC Glucose (mg/dL) 234 H (75-99) mg/dL Amylase 116 H (30-110) U/L Ur Specific [place] 1.043 H (1.001-1.035) Urine Glucose (UA) 3+ H (Negative) 02/26/18 Range/Units 06:56 Sodium (137-145) mmol/L Potassium (3.5-5.1) mmol/L Chloride (98-107) mmol/L Carbon Dioxide (22-30) mmol/L Glucose (74-99) mg/dL POC Glucose (mg/dL) 149 H (75-99) mg/dL Amylase (30-110) U/L Ur Specific [place] (1.001-1.035) Urine Glucose (UA) (Negative) CT scan - abdomen: report reviewed (Dr. Davison) Assessment and Plan (1) Epigastric abdominal pain Narrative/Plan: Two-week history of severe epigastric pain with nonbloody emesis and nausea 10 pound weight loss 1 month with decreased appetite. Possible peptic ulcer disease. CT abdomen and pelvis reported edematous infiltration of the perigastric duodenal soft tissue plane raising suspicion for acute peptic ulcer disease. Current Visit: Yes Status: Acute Code(s): R10.13 - EPIGASTRIC PAIN SNOMED Code(s): 49183464 (2) Abnormal CT of the abdomen Narrative/Plan: CT abdomen and pelvis reported extra hepatic biliary tree dilation similar to previous study in April 2015 but present dilatation appears slightly more conspicuous with unremarkable LFTs. Current Visit: Yes Status: Acute Code(s): R93.5 - ABN FINDINGS ON DX IMAGING OF ABD REGIONS, INC RETROPERITON SNOMED Code(s): 99142116570463506 Plan: 1. Protonix 40 mg IV twice daily. We'll proceed with EGD evaluation tomorrow. In regards to CT findings concerning the extra hepatic biliary tree dilation with normal LFTs recommend a outpatient MRCP possible EUS. We'll follow closely with you. Liquid diet today. Nothing by mouth after midnight. The repairer art objects has discussed the risks, benefits and alternative therapies for the above-mentioned procedure and for both sedation/analgesia as well as necessary blood product administration, if indicated, as they pertain to this patient. The patient has indicated understanding and acceptance of the risks and procedures discussed. Thank you for this kind referral and the opportunity to participate in the care of your patient. This consultation was discussed with Dr. Davison. The impression and plan of care have been directed as dictated.
[2018-02-26] MEDS: SODIUM CHLORIDE 0.9% 1,000 ML with POTASSIUM CHLORIDE 20 MEQ IV SCH ×2 (11:14)
[2018-02-26 11:37] LABS: Glucose,Whole Blood 227 mg/dL (75-99)
--- NOTE | 2018-02-26 12:25 | P.HPIM ---
History of Present Illness 72-year-old female was sent from family physician office with complaints of increasing abdominal pain. Patient had previously been to the emergency room and released. Patient is a diabetic had recently tried Victoza Review of Systems Gastrointestinal: Reports abdominal pain, Reports dyspepsia, Reports heartburn Past Medical History Past Medical History: Cancer, Diabetes Mellitus, GERD/Reflux, Hyperlipidemia Additional Past Medical History / Comment(s): Breast cancer 7 yrs ago. History of Any Multi-Drug Resistant Organisms: None Reported Past Surgical History: Breast Surgery Additional Past Surgical History / Comment(s): Partial breast removal. Past Anesthesia/Blood Transfusion Reactions: No Reported Reaction Past Psychological History: No Psychological Hx Reported Smoking Status: Current every day smoker Past Alcohol Use History: None Reported Additional Past Alcohol Use History / Comment(s): Has been smoking for 48-49 yrs , 5 cigarettes per day. Past Drug Use History: None Reported - Past Family History Mother Family Medical History: No Reported History Brother(s) Family Medical History: Cancer Medications and Allergies Home Medications Medication Instructions Recorded Confirmed Type Aspirin [Adult Low Dose Aspirin EC] 81 mg PO DAILY 12/04/17 02/25/18 History Irbesartan [Avapro] 150 mg PO DAILY 12/04/17 02/25/18 History Letrozole 2.5 mg PO DAILY 12/04/17 02/25/18 History Nateglinide 60 mg PO DAILY 02/25/18 02/25/18 History Allergies Allergy/AdvReac Type Severity Reaction Status Date / Time No Known Allergies Allergy Verified 02/25/18 16:09 Physical Exam Vitals: Vital Signs Temp Pulse Pulse Resp BP BP Pulse Ox 02/26/18 08:17 16 02/26/18 07:20 98.6 F 72 16 125/71 97 02/26/18 03:03 66 16 02/26/18 00:44 98.4 F 66 16 110/62 98 02/25/18 23:20 91 20 02/25/18 20:43 100.4 F H 68 20 121/69 97 02/25/18 20:26 98.3 F 91 18 125/70 96 02/25/18 19:00 89 20 135/65 97 02/25/18 18:00 89 20 152/71 98 02/25/18 15:30 98.6 F 101 H 18 157/87 99 Intake and Output 02/25/18 02/26/18 02/26/18 22:59 06:59 14:59 Intake Total 600 Balance 600 Intake: Intake, IV Titration 600 Amount Sodium Chloride 0.9% 1, 600 000 ml @ 75 mls/hr IV . [id number] JEAN with Potassium Chloride 20 meq Rx#:[id number] Other: # Voids 2 2 Weight 39.916 kg 39.916 kg 39.916 kg - Constitutional General appearance: mild distress - EENT Eyes: PERRLA Ears: bilateral: normal - Neck Neck: normal ROM - Respiratory Respiratory: bilateral: CTA - Cardiovascular Rhythm: regular - Gastrointestinal General gastrointestinal: soft Localized gastrointestinal: tender: RUQ - Integumentary Integumentary: normal - Neurologic Neurologic: CNII-XII intact - Musculoskeletal Musculoskeletal: gait normal - Psychiatric Psychiatric: A&O x's 3, appropriate affect, intact judgment & insight Results CBC & Chem 7: 02/25/18 16:05 02/25/18 16:05 Labs: Abnormal Lab Results - Last 24 Hours (Table) 02/25/18 02/25/18 02/25/18 Range/Units 16:05 21:31 22:00 Sodium 135 L (137-145) mmol/L Potassium 3.4 L (3.5-5.1) mmol/L Chloride 91 L (98-107) mmol/L Carbon Dioxide 31 H (22-30) mmol/L Glucose 260 H (74-99) mg/dL POC Glucose (mg/dL) 234 H (75-99) mg/dL Amylase 116 H (30-110) U/L Ur Specific [place] 1.043 H (1.001-1.035) Urine Glucose (UA) 3+ H (Negative) 02/26/18 02/26/18 Range/Units 06:56 11:36 Sodium (137-145) mmol/L Potassium (3.5-5.1) mmol/L Chloride (98-107) mmol/L Carbon Dioxide (22-30) mmol/L Glucose (74-99) mg/dL POC Glucose (mg/dL) 149 H 227 H (75-99) mg/dL Amylase (30-110) U/L Ur Specific [place] (1.001-1.035) Urine Glucose (UA) (Negative) CT scan - abdomen: report reviewed US - abdomen: report reviewed Thrombosis Risk Factor Assmnt - Choose All That Apply Any of the Below Risk Factors Present?: Yes Each Risk Factor Represents 2 Points: Age 61-74 years Other congenital or acquired thrombophilia - If yes, enter type in comment: No Thrombosis Risk Factor Assessment Total Risk Factor Score: 2 Thrombosis Risk Factor Assessment Level: Low Risk Assessment and Plan Plan: Assessment Dilated intrahepatic bile duct Peptic ulcer Diabetes type 2 History of breast cancer Nicotine use GERD Hyperlipidemia Plan Consultation with gastroenterology EGD scheduled Protonix started
[2018-02-26 17:10] LABS: Glucose,Whole Blood 182 mg/dL (75-99)
[2018-02-26 20:01] LABS: Glucose,Whole Blood 154 mg/dL (75-99)
[2018-02-27] MEDS: SODIUM CHLORIDE 0.9% 1,000 ML with POTASSIUM CHLORIDE 20 MEQ IV SCH ×2 (01:50)
[2018-02-27 07:04] LABS: Glucose,Whole Blood 134 mg/dL (75-99)
[2018-02-27] MEDS: INSULIN ASPART 100 UNIT/ML 1 ML 10 ML VIAL SQ SCH ×3 (07:41→18:35)
[2018-02-27] MEDS: LOSARTAN 50 MG TAB PO SCH (07:42)
[2018-02-27] MEDS: LETROZOLE 2.5 MG TAB PO SCH (07:42)
[2018-02-27] MEDS: PANTOPRAZOLE 40 MG/10 ML VIAL IV SCH (08:53)
[2018-02-27] MEDS ORDERED: LIDOCAINE 1% INJ 10MG/ML (20 ML MDV) ONE (11:43)
[2018-02-27] MEDS ORDERED: IV FLUID CONTINUATION 1,000 ML IV ONE (11:43)
[2018-02-27] MEDS ORDERED: PROPOFOL 10 MG/ML 20 ML VIAL IV ONE (11:43)
--- NOTE | 2018-02-27 12:14 | P.PCN ---
Date of Procedure: 02/27/18 Procedure(s) Performed: BRIEF HISTORY: Patient is a 72-year-old, pleasant,, scheduled for an upper endoscopy as a part of evaluation severe epigastric pain, associated with nausea vomiting for the last 2 weeks' duration. She does abdomen showed thickening perigastric/duodenal area suspicious for duodenal ulcer.. PROCEDURE PERFORMED: Esophagogastroduodenoscopy with biopsy. PREOPERATIVE DIAGNOSIS: Epigastric pain/nausea vomiting of 2 weeks duration. IV sedation per anesthesia. PROCEDURE: After informed consent was obtained, the patient was brought into the endoscopy unit. IV sedation was administered by Anesthesia under continuous monitoring. Initially the Olympus GIF-140 video endoscope was inserted into the mouth. Esophagus intubated without any difficulty. It was gradually advanced into the stomach and duodenum and carefully examined. In the bulb of the duodenum there was a 2-3 cm deep ulcer with a clean base and no active bleeding. The second part of the duodenum appeared normal. The scope at this time was withdrawn to the stomach, adequately insufflated with air, and upon careful examination, mucosa of the antrum, had mild gastritis and biopsies were done from this area. The body, cardia and the fundus appeared normal. The scope was then withdrawn into the esophagus. The GE junction was located at 39 cm from the incisors. In the mid esophagus at 30 cm from the incisors there was a 5 mm of mucosal polyp noted which was not biopsied. The rest of the esophagus appeared normal. There were no erosions or ulcerations seen and the patient tolerated the procedure well. IMPRESSION: 1. 2-3 cm deep duodenal bulbar ulcer with no active bleeding. 2. Mild antral gastritis. 3. 5 mm submucosal mid esophageal polyp RECOMMENDATIONS: The findings of this examination were discussed with the patient as well as her family. She was advised to follow with the biopsy results. He'll continue with Protonix 40 mg twice daily and she was advised advised to avoid NSAIDs. Diet will be advanced as tolerated.
[2018-02-27 12:24] LABS: Glucose,Whole Blood 115 mg/dL (75-99)
--- NOTE | 2018-02-27 14:57 | P.DS ---
Providers Date of admission: 02/25/18 19:16 Expected date of discharge: 02/27/18 Attending physician: Bradford Wallis Consults: 02/25/18 19:16 Consult Physician Stat Consulting Provider: Nessa Davison Consult Reason/Comments: Dilated biliary duct Do you want consulting provider notified?: Yes Primary care physician: Bradford Wallis Hospital Course: 72-year-old female was admitted to the emergency room with complaints of abdominal pain. Patient had a CT scan of the abdomen showing duodenal ulcer also dilatation of the intrahepatic bile duct. Patient added EGD and duodenal ulcer confirmed. Patient will be started protonix. Patient will follow up patient with Dr. Davison. MRI MRCP ordered for tonight may be discharged after test. Patient will get results from Dr. Benito outpatient Assessment duodenal ulcer antral gastritis dilated intrahepatic bile duct diabetes type II history of breast cancer nicotine use GERD hyperlipidemia Plan MRI MRCP tonight then discharge home with protonic's b.i.d. Patient Condition at Discharge: Stable Plan - Discharge Summary Discharge Rx Participant: No New Discharge Prescriptions: New Acetaminophen Tab [Tylenol] 650 mg PO Q6HR PRN tab PRN Reason: Mild Pain Or Fever > 100.5 Losartan [Cozaar] 50 mg PO DAILY tab Pantoprazole Sodium [Protonix] 40 mg PO BID #60 tablet. Continue Irbesartan [Avapro] 150 mg PO DAILY Letrozole 2.5 mg PO DAILY Nateglinide 60 mg PO DAILY Discontinued Aspirin [Adult Low Dose Aspirin EC] 81 mg PO DAILY Discharge Medication List Irbesartan [Avapro] 150 mg PO DAILY 12/04/17 [History] Letrozole 2.5 mg PO DAILY 12/04/17 [History] Nateglinide 60 mg PO DAILY 02/25/18 [History] Acetaminophen Tab [Tylenol] 650 mg PO Q6HR PRN tab 02/27/18 [Rx] Losartan [Cozaar] 50 mg PO DAILY tab 02/27/18 [Rx] Pantoprazole Sodium [Protonix] 40 mg PO BID #60 tablet. 02/27/18 [Rx] Follow up Appointment(s)/Referral(s): Bradford Wallis MD [Primary Care Provider] - 1-2 days Nessa Davison MD [STAFF PHYSICIAN] - 2 Weeks Patient Instructions/Handouts: Peptic Ulcer (DC), Acute Abdominal Pain (DC)
[2018-02-27 16:55] LABS: Glucose,Whole Blood 256 mg/dL (75-99)
[2018-02-27 20:27] VITALS: BP 151/85; PULSE 82; RESP 15; TEMP 98.6
--- NOTE | 2018-02-27 20:46 | MR ---
EXAMINATION TYPE: MR MRCP DATE OF EXAM: 02/27/2018 COMPARISON: None HISTORY: dilated bile duct Standard multiplanar, multisequence MRI departmental protocol Multiplanar, multisequence images of the abdomen were acquired. FINDINGS: Liver shows no focal defect. There is mild ectasia of the biliary tree. The common bile chey[place] t measures up to 11 mm. Gallbladder appears normal in size and contour. I see no filling defects. The re is mild prominence of the pancreatic duct that measures up to 4 mm. There is smooth tapering of th e distal common bile duct and the pancreatic duct. I see no filling defect. Kidneys have normal size and contour. There is no hydronephrosis. There is 2.4 x 1.3 cm left adrenal mass. There is no evidence of retroperitoneal adenopathy. Spleen appears normal. I see no pancreatic mass. There is no ascites. IMPRESSION: There is mild ectasia of the biliary tree as well as the pancreatic duct. This is also present on old CT scan of 05/03/2015 and appears not significantly different. No filling defect to suggest a common duct stone. Normal gallbladder size. This appearance could relate to sphincter malfunction. I see no obstructing mass at the distal common bile duct. No evidence of liver or pancreatic mass.
== END 2018-02-27 20:30 | disposition home or self-care (01) | DRG 384 ==
LOC: EC 15:24 → INTOOBSV 19:16 → 3SUR 19:16 → OBSVTOIN 02-27 15:50
PROVIDERS: ADMIT Family Medicine; ATTEND Family Medicine
PROC: 0DB78ZX Excision of Stomach, Pylorus, Via Natural or Artificial Opening Endoscopic, Diagnostic (ICD-10-PCS; principal; 2018-02-27 10:15)
DX: K26.9 Duodenal ulcer, unspecified as acute or chronic, without hemorrhage or perforation (principal); E11.9 Type 2 diabetes mellitus without complications; E78.5 Hyperlipidemia, unspecified; F17.200 Nicotine dependence, unspecified, uncomplicated; K21.9 Gastro-esophageal reflux disease without esophagitis; K29.60 Other gastritis without bleeding; K83.8 Other specified diseases of biliary tract; Z79.82 Long term (current) use of aspirin; Z85.3 Personal history of malignant neoplasm of breast; Z79.899 Other long term (current) drug therapy
CPT/HCPCS: 36415; 43239; 71046; 74178; 74181; 76705; 80053; 81003; 82009; 82150; 82550; 82553; 83036; 83605; 83690; 83735; 84484; 85025; 85610; 85730; 88305; 88342; 93005; 96360; 96361; 96374; 99285

== ENCOUNTER → 2018-03-01 | Outpatient (CLI) | payer MEDICARE, OTHER | LOC: RADPETMAIN 13:51 | PROVIDERS: ATTEND Internal Medicine Hematology & Oncology | DX: Z53.9 Procedure and treatment not carried out, unspecified reason (principal) ==

== ENCOUNTER → 2018-03-08 | Outpatient (CLI) | payer MEDICARE, OTHER ==
--- NOTE | 2018-03-11 16:53 | PE ---
Nuclear medicine PET/CT HISTORY: Left breast carcinoma, subsequent Patient received 11.9 mCi F-18 FDG intravenously in delayed scanning was performed from the skull bas e to the mid thighs. Localization and attenuation correction CT scan was performed. Correlation to CT abdomen pelvis 02/25/2018, prior nuclear medicine PET/CT 10/20/2016 Neck and CHEST: There is no evident cervical adenopathy. No supraclavicular adenopathy. No mediastina l, axillary, or hilar adenopathy. There is no evident change in lung masses, upper lobe subcentimeter nodules are stable. No pleural or pericardial effusion. No axillary adenopathy. No abnormal uptake s een within the breasts. Abdomen pelvis: No evident liver mass. There is some uptake thought to be along the stomach which is indeterminate. No evident retroperitoneal adenopathy. Aorta iliac region shows calcification. No evid ent ascites. Osseous structures: No suspicious hypermetabolic uptake. IMPRESSION: No suspicious hypermetabolic uptake is evident to suggest metastatic disease. Question ab normal uptake along the stomach although this could be physiologic, see dictated report CT scan 2017.
== END | disposition home or self-care (01) ==
LOC: RADPETMAIN 11:54
PROVIDERS: ATTEND Internal Medicine Hematology & Oncology
DX: C50.812 Malignant neoplasm of overlapping sites of left female breast (principal)
CPT/HCPCS: 78815; A9552

== ENCOUNTER → 2018-12-24 | Outpatient (CLI) | payer MEDICARE, OTHER ==
--- NOTE | 2018-12-25 08:37 | MM ---
Reason for exam: additional evaluation requested from prior study. Last mammogram was performed 1 year ago. History: Patient is postmenopausal and has history of breast cancer at age 65. Lumpectomy of the left breast, 2011. Chemotherapy, 2011. Radiation therapy, 2011. Taking antineoplastic for 7 years beginning at age 65. Physical Findings: Nurse did not find any significant physical abnormalities on exam. MG 3D Diag Mammo W/Cad ALEX Bilateral CC and MLO view(s) were taken. ML, LM, and spot compression CC view(s) were taken of the right breast. Prior study comparison: December 12, 2017, bilateral MG 3d diag mammo w/cad ALEX. February 17, 2016, left breast MG 3d diag mammo w/cad LT. The breast tissue is extremely dense which could obscure a lesion on mammography. Benign appearing bilateral calcifications. Right upper medial distortion 8.5cm from nipple nearly resolves on spot CC. Post surgical change on the left. These results were verbally communicated with the patient and result sheet given to the patient on 12/24/18. ASSESSMENT: Incomplete: need additional imaging evaluation, BI-RAD 0 RECOMMENDATION: Ultrasound of both breasts. (right upper inner quadrant 8.5cm from the nipple, left upper outer quadrant at scar)
--- NOTE | 2018-12-25 08:40 | USB ---
Reason for exam: additional evaluation requested from abnormal screening. History: Patient is postmenopausal and has history of breast cancer at age 65. Lumpectomy of the left breast, 2012. Chemotherapy, 2012. Radiation therapy, 2012. Taking antineoplastic for 7 years beginning at age 65. US Breast Limited BILAT Right limited breast ultrasound including focal area of concern, retroareolar and axilla demonstrates a 3mm oval, lymph node at the axilla tail. Left limited breast ultrasound including focal area of concern, retroareolar and axilla demonstrates a 6 x 6 x 8mm irregular, solid, hypoechoic lesion at 2 o'clock for which a biopsy is recommended and a vascular scar at 3 o'clock. 6 month follow up recommended for right focal asymmetry with no ultrasound correlate. These results were verbally communicated with the patient and result sheet given to the patient on 12/24/18. ASSESSMENT: Suspicious, BI-RAD 4 RECOMMENDATION: Ultrasound core biopsy of the left breast. (2 o'clock) Called with mammographic findings and has scheduled an appointment for the patient for 01/27/19 at 9:[address] Wood. Biopsy scheduled for 01/20/19 at 12:20. PRELIMINARY REPORT CALLED AND FAXED TO DR. WOOD ON 12/25/18.
== END | disposition home or self-care (01) ==
LOC: RADMAMWWP 12:45
PROVIDERS: ATTEND Internal Medicine Hematology & Oncology
DX: Z85.3 Personal history of malignant neoplasm of breast (principal); R92.8 Other abnormal and inconclusive findings on diagnostic imaging of breast
CPT/HCPCS: 77066; 76642; G0279; 77062

== ENCOUNTER → 2019-01-20 | Day surgery (SDC) | payer MEDICARE, OTHER ==
[2019-01-20 12:11] VITALS: RESP 16; BMI 21.2
[2019-01-20 13:23] VITALS: BP 104/84; PULSE 90; TEMP 98.1
--- NOTE | 2019-01-20 14:10 | USB ---
EXAMINATION TYPE: US biopsy breast VAD LT DATE OF EXAM: 01/20/2019 CLINICAL HISTORY: R92.8 ABNORMAL MAMMOGRAM. TECHNIQUE: Ultrasound guided core biopsy of left breast. COMPARISON: Bilateral breast ultrasound dated 12/24/2018 FINDINGS: The procedure of ultrasound guided core biopsy was explained to the patient. Benefits, alternatives, and risks were discussed. An informed consent was then obtained. Preprocedure timeout was performed. The patient was placed in supine positioning for imaging and for the procedure. The overlying skin was prepped and draped in usual sterile fashion. 10 cc of 1% lidocaine was used as anesthetic into the skin and subcutaneous tissue up to the 6 x 6 x 8 mm irregular solid mass at the 2:00 position of the right breast. Under ultrasound guidance, a 12-gauge vacuum assisted biopsy gun device was used to obtain 5 core samples. Following this, a wing shaped biopsy marker was left in mass. Postprocedure mammogram demonstrates appropriate biopsy marker placement. The patient tolerated the procedure well without any immediate complication. The patient was kept in the radiology department for short stay after the procedure and then discharged home in stable condition. IMPRESSION: Successful, uncomplicated ultrasound guided core biopsy of an 8 mm mass at the 2 composition of the right breast, full pathology results to follow. Recommendation for the scar the 3:00 position with adjacent vascularity will be made on biopsy results. Pathology Results: Malignant LEFT BREAST, ULTRASOUND GUIDED CORE BIOPSY: Pending consultation, see addendum/final diagnosis. ADDENDUM REPORT LEFT BREAST, CORE BIOPSY ([id number], 01/20/19): Atypical epithelial proliferation. Recommendation Surgical consult of the left breast. Repeat procedure. Excision recommended by pathology for 2 o'clock site. 3 o'clock site is also amendable to ultrasound guided needle localization or biopsy prior to excision at 2 o'clock on the right. [facility]
--- NOTE | 2019-01-20 14:16 | MM ---
Reason for exam: additional evaluation requested from abnormal screening. Last mammogram was performed 1 month ago. History: Patient is postmenopausal and has history of breast cancer at age 65. Lumpectomy of the left breast, 2011. Chemotherapy, 2011. Radiation therapy, 2011. Taking antineoplastic for 7 years beginning at age 65. MG Diagnostic Mammo LT Wo CAD XCCL and ML view(s) were taken of the left breast. Prior study comparison: December 24, 2018, bilateral MG 3d diag mammo w/cad ALEX. December 12, 2017, bilateral MG 3d diag mammo w/cad ALEX. ASSESSMENT: Post procedure mammogram for marker placement RECOMMENDATION: Surgical consult of the left breast. Repeat procedure. Excision recommended by pathology for 2 o'clock site. 3 o'clock site is also amendable to ultrasound guided needle localization or biopsy prior to excision at 2 o'clock on the right. WENDYD
--- NOTE | 2019-01-23 07:50 | CDI ---
Outpatient Documentation Clarification Form Date: 01/23/19 CDS/Wire Winding Machine Operator Name: Betzaida Ferro Phone: If any questions, call Marisa Barger Security And Compliance Analyst at [phone] Patient Name: Waleska Hooker Admit Date: 01/20/19 Discharge Date: 01/20/19 ATTENTION: The [facility] Coding Staff appreciate your assistance in clarifying documentation. Please respond to the clarification below the line at the bottom and electronically sign. The [facility] Coding staff will review the response and follow-up if needed. Please note: Queries are made part of the Legal Health Record. If you have any questions, please contact the Security And Compliance Analyst. Dear Dr. Sánchez, Please provide clarification at to the laterality of the procedure performed. The order, states left side. Also on your dictated report at the top under Examination Type it is stated the left side. However, on your dictated report at the bottom under Impression, it is stated the right side. Please clarify. Thank you for your kind consideration. MTDD
== END ==
LOC: RADUSWWP 11:14
PROVIDERS: ATTEND Internal Medicine Hematology & Oncology
DX: N60.89 Other benign mammary dysplasias of unspecified breast (principal)
CPT/HCPCS: 88305; 88342; 88341; 77065; 19083; A4648; J2001

== ENCOUNTER → 2019-02-27 | Outpatient (CLI) | payer MEDICARE, OTHER, BC ==
[2019-02-27 15:05] VITALS: BP 142/85; PULSE 108; RESP 16; TEMP 98; BMI 24.5
--- NOTE | 2019-02-27 15:50 | P.GSHP ---
History of Present Illness H&P Date: 02/27/19 Chief Complaint: Ultrasound-guided core biopsy left breast without the fear reveal atypia Waleska is a 73-year-old female who has a prior history of left breast cancer approximately 8 years ago. This was treated with a lumpectomy and radiation therapy in [place]. She was treated with both radiation and chemotherapy. She is presently on last resolved. She believes the tumor was 2 cm, she is uncertain as to whether there was any cancer in the lymph nodes. She was told this was a stage II tumor. Most recently she had a bilateral mammogram performed on 8718. The right breast was noted to have some medial distortion 2.5 cm from the nipple She subsequently underwent bilateral breast ultrasound. Right breast did not show any specific lesions of concern, in the left breast there was a 6 x 8 mm irregular solid hypoechoic lesion at 2:00 which biopsy was recommended. Ultrasound-guided core biopsy was performed on 9318. The biopsy revealed atypical epithelial proliferation and it was recommended that needle localization and excision be performed. Additionally it was noted that the 3:00 site was amiable to ultrasound-guided needle local biopsy prior to excision at the 2:00 site on the right. The patient does not feel anything different in her breast. She is not complaining of any nipple discharge or skin changes. Family History: brother: throat cancer Hormonal History: menarche: 15 , breast fed: no, first born at 24 menopase: 57 BCP: 10 years hormones: one Surgical history: 1. Left breast lumpectomy and sentinel node biopsy questionable axillary node dissection Medical history: 1. diabetes Social history: Smoke: 5 cig./day for 50 years, used to smoke 1/2 PPD alcohol: none drugs: none - Constitutional Constitutional: Denies chills, Denies fever - EENT Eyes: denies blurred vision, denies pain Ears: deny: decreased hearing, tinnitus Ears, nose, mouth and throat: Denies headache, Denies sore throat - Breasts Breasts: bilateral: as per HPI - Cardiovascular Cardiovascular: Denies chest pain, Denies shortness of breath - Respiratory Comment: smoker Respiratory: Denies cough, Denies 7 - Gastrointestinal Comment: ulcers Gastrointestinal: Denies abdominal pain, Denies diarrhea, Denies nausea, Denies vomiting - Genitourinary (Female) Genitourinary: Denies dysuria, Denies hematuria - Menstruation Menstruation: Reports postmenopausal - Musculoskeletal Musculoskeletal: Reports muscle cramps - Integumentary Integumentary: Denies pruritus, Denies rash - Neurological Neurological: Denies numbness, Denies weakness - Psychiatric Psychiatric: Denies anxiety, Denies depression - Endocrine Comment: diabetes Endocrine: Denies fatigue, Denies weight change - Hematologic/Lymphatic Comment: none - Allergic/Immunologic Allergic/Immunologic: Reports as per HPI Past Medical History Past Medical History: Cancer, Diabetes Mellitus, GERD/Reflux, Hyperlipidemia, Hypertension Additional Past Medical History / Comment(s): Breast cancer @ 65 years old History of Any Multi-Drug Resistant Organisms: None Reported Past Surgical History: Breast Surgery Additional Past Surgical History / Comment(s): lumpectomy @ 65 left breast, chemo/radiation. Past Anesthesia/Blood Transfusion Reactions: No Reported Reaction Past Psychological History: No Psychological Hx Reported Smoking Status: Former smoker Past Alcohol Use History: None Reported Additional Past Alcohol Use History / Comment(s): Has been smoking for 48-49 yrs, 5 cigarettes per day. quit smoking december 2018 Past Drug Use History: None Reported - Past Family History Mother Family Medical History: No Reported History Brother(s) Family Medical History: Cancer Medications and Allergies Home Medications Medication Instructions Recorded Confirmed Type Letrozole 2.5 mg PO DAILY 12/04/17 02/27/19 History Nateglinide 60 mg PO DAILY 02/25/18 02/27/19 History Losartan [Cozaar] 50 mg PO DAILY tab 02/27/18 02/27/19 Rx Pantoprazole Sodium [Protonix] 40 mg PO BID #60 tablet. 02/27/18 02/27/19 Rx Glimepiride [Amaryl] 1 mg PO BID 02/27/19 02/27/19 History Allergies Allergy/AdvReac Type Severity Reaction Status Date / Time No Known Allergies Allergy Verified 01/20/19 11:52 Surgical - Exam Vital Signs Temp Pulse Resp BP Pulse Ox 98.0 F 108 H 16 142/85 96 02/27/19 14:58 02/27/19 14:58 02/27/19 14:58 02/27/19 14:58 02/27/19 14:58 BMI 24.5 - General well developed, well nourished, no distress - Eyes normal ocular movement - ENT no hearing loss, no congestion - Neck no masses, trachea midline - Respiratory Decreased breath sounds at bases bilateral normal respiratory effort, clear to auscultation - Cardiovascular Rhythm: regular Heart Sounds: normal: S1, S2 - Abdomen Abdomen: soft, non tender, no guarding, no rigid, no rebound - Integumentary normal turgor - Neurologic no disoriented, no combative - Musculoskeletal normal gait, normal posture - Psychiatric oriented to time, oriented to person, oriented to place, speech is normal, memory intact breast exam: bra 36C, patient must wear insert for left breast secondary to asymmetry Right breast: Multi-positional exam no dominant masses or nodules of concern, right breast approximately one quarter size larger than the left breast Right axilla: No adenopathy of concern Left breast: Scar from post lumpectomy changes, nipple inverted, firmness as scarring lateral aspect of the breast Left axilla, no adenopathy of concern Results Mammogram and ultrasound reviewed Assessment and Plan Assessment: Impression: 1. Personal history of stage II left breast cancer 2. Fibrocystic breast changes 3. Epithelial atypia on core biopsy of left breast 4. Mammogram abnormality left breast 5. Ultrasound abnormality left breast 6. Diabetes 7. Nicotine dependence 8. Asymmetry of breast Plan: 1. Needle local excisional biopsy of 2 areas of concern in the left breast, there are 2:00 admitted 3:00 2. Medical clearance 3. Consider symmetry procedure after left breast is evaluated Cc: Dr. Bradford Wallis
== END ==
LOC: WWCWWP 14:24
PROVIDERS: ATTEND Surgery
DX: Z53.9 Procedure and treatment not carried out, unspecified reason (principal)

== ENCOUNTER → 2019-04-13 | Outpatient (CLI) | payer MEDICARE, OTHER ==
--- NOTE | 2019-04-14 08:26 | ECHOF ---
Referral Reason:I10 hypertention MEASUREMENTS -------- HEIGHT: 127.0 cm WEIGHT: 44.5 kg BP: RVIDd: 2.9 cm (< 3.3) IVSd: 1.3 cm (0.6 - 1.1) LVIDd: 4.6 cm (3.9 - 5.3) LVPWd: 1.4 cm (0.6 - 1.1) IVSs: 1.3 cm LVIDs: 4.2 cm LVPWs: 1.5 cm LAESV Index (A-L): 44.76 ml/m Ao Diam: 2.8 cm (2.0 - 3.7) AV Cusp: 1.5 cm (1.5 - 2.6) LA Diam: 2.9 cm (2.7 - 3.8) MV E Mane: 1.18 m/s MV DecT: 96 ms MV A Mane: 0.59 m/s MV E/A Ratio: 1.99 AR PHT: 271 ms RAP: 5.00 mmHg RVSP: 36.29 mmHg FINDINGS -------- Resting tachycardia (HR>100bpm). This was a technically good study. The left ventricular size is normal. There is mild concentric left ventricular hypertrophy. There is moderate global hypokinesis of LV . Overall left ventricular systolic function is severely impa ired with, an EF between 20 - 25 %. Mitral Doppler inflow pattern suggests diastolic filling abnorm ality {E/E'}. The right ventricle is normal in size. LA is severely dilated >40 ml/m2 The right atrial size is normal. Interatrial and interventricular septum intact. The aortic valve is trileaflet and appears structurally normal. There is mild aortic valve sclerosi s. There is mild aortic regurgitation. Mild mitral annular calcification present. Moderate mitral regurgitation is present. Mild tricuspid regurgitation present. There is mild pulmonary hypertension. The right ventricular systolic pressure, as measured by Doppler, is 36.29mmHg. Trace/mild (physiologic) pulmonic regurgitation. The aortic root size is normal. Normal inferior vena cava with normal inspiratory collapse consistent with estimated right atrial pre ssure of 5 mmHg. There is a small, generalized pericardial effusion present. CONCLUSIONS -------- 1. Resting tachycardia (HR>100bpm). 2. This was a technically good study. 3. The left ventricular size is normal. 4. There is mild concentric left ventricular hypertrophy. 5. There is moderate global hypokinesis of LV . 6. Overall left ventricular systolic function is severely impaired with, an EF between 20 - 25 %. 7. Mitral Doppler inflow pattern suggest diastolic filling abnormality {E/E'}. 8. The right ventricle is normal in size. 9. LA is severely dilated >40 ml/m2 10. The right atrial size is normal. 11. Interatrial and interventricular septum intact. 12. The aortic valve is trileaflet and appears structurally normal. 13. There is mild aortic valve sclerosis. 14. There is mild aortic regurgitation. 15. Mild mitral annular calcification present. 16. Moderate mitral regurgitation is present. 17. Mild tricuspid regurgitation present. 18. There is mild pulmonary hypertension. 19. The right ventricular systolic pressure, as measured by Doppler, is 36.29mmHg. 20. Trace/mild (physiologic) pulmonic regurgitation. 21. The aortic root size is normal. 22. Normal inferior vena cava with normal inspiratory collapse consistent with estimated right atrial pressure of 5 mmHg. 23. There is a small, generalized pericardial effusion present. [employer]: Mayelin Clark RDCS
--- NOTE | 2019-04-15 09:35 | P.ARTDOP ---
Arterial Doppler LOWER EXTREMITY ARTERIAL DOPPLER: DATE OF SERVICE: 04/13/2019 Reason for study: Bilateral claudication. Doppler waveforms: Atypical bilaterally throughout. Pulse volume recording: []. Pressure gradients: Above thigh bilaterally and lesser gradient below the knee. Ankle-brachial indices: 0.61 on the right and 0.75 on the left. Toe pressures: [] on the right, [] on the left Impression: Moderate bilateral fem-pop disease with possible bilateral iliac component. Consider vascular surgical consultation.
== END | disposition home or self-care (01) ==
LOC: RADUSWWP 13:04
PROVIDERS: ATTEND Family Medicine
DX: I08.3 Combined rheumatic disorders of mitral, aortic and tricuspid valves (principal); I27.20 Pulmonary hypertension, unspecified; I31.3 Pericardial effusion (noninflammatory); I73.9 Peripheral vascular disease, unspecified
CPT/HCPCS: 93306; 93923

== ENCOUNTER 2019-04-14 07:48 | Day surgery (SDC) | payer BC, MEDICARE, OTHER ==
--- NOTE | 2019-04-09 13:49 | P.PN ---
Progress Note - Text Date: 04-09-19 Chief Complaint: Ultrasound-guided core biopsy left breast atypical epithelial proliferation Waleska is a 73-year-old female who has a prior history of left breast cancer approximately 8 years ago. This was treated with a lumpectomy and radiation therapy in [place]. She was treated with both radiation and chemotherapy. She is presently on anestrazole. She believes the tumor was 2 cm, she is uncertain as to whether there was any cancer in the lymph nodes. She was told this was a stage II tumor. Most recently she had a bilateral mammogram performed on 8718. The right breast was noted to have some medial distortion 2.5 cm from the nipple She subsequently underwent bilateral breast ultrasound. Right breast did not show any specific lesions of concern, in the left breast there was a 6 x 8 mm irregular solid hypoechoic lesion at 2:00 which biopsy was recommended. Ultrasound-guided core biopsy was performed on 9318. The biopsy revealed atypical epithelial proliferation and it was recommended that needle localization and excision be performed. Additionally it was noted that the 3:00 site was amiable to ultrasound-guided needle local should be excised at the same time as the needle local excisional biopsy at the 2:00 site in the left breast. The patient does not feel anything different in her breast. She is not complaining of any nipple discharge or skin changes. Family History: brother: throat cancer Hormonal History: menarche: 15 , breast fed: no, first born at 24 menopase: 57 BCP: 10 years hormones: one Surgical history: 1. Left breast lumpectomy and sentinel node biopsy questionable axillary node dissection Medical history: 1. diabetes Social history: Smoke: 5 cig./day for 50 years, used to smoke 1/2 PPD alcohol: none drugs: none - Constitutional Constitutional: Denies chills, Denies fever - EENT Eyes: denies blurred vision, denies pain Ears: deny: decreased hearing, tinnitus Ears, nose, mouth and throat: Denies headache, Denies sore throat - Breasts Breasts: bilateral: as per HPI - Cardiovascular Cardiovascular: Denies chest pain, Denies shortness of breath - Respiratory Comment: smoker Respiratory: Denies cough, Denies 7 - Gastrointestinal Comment: ulcers Gastrointestinal: Denies abdominal pain, Denies diarrhea, Denies nausea, Denies vomiting - Genitourinary (Female) Genitourinary: Denies dysuria, Denies hematuria - Menstruation Menstruation: Reports postmenopausal - Musculoskeletal Musculoskeletal: Reports muscle cramps - Integumentary Integumentary: Denies pruritus, Denies rash - Neurological Neurological: Denies numbness, Denies weakness - Psychiatric Psychiatric: Denies anxiety, Denies depression - Endocrine Comment: diabetes Endocrine: Denies fatigue, Denies weight change - Hematologic/Lymphatic Comment: none - Allergic/Immunologic Allergic/Immunologic: Reports as per HPI Past Medical History Past Medical History: Cancer, Diabetes Mellitus, GERD/Reflux, Hyperlipidemia, Hypertension Additional Past Medical History / Comment(s): Breast cancer @ 65 years old History of Any Multi-Drug Resistant Organisms: None Reported Past Surgical History: Breast Surgery Additional Past Surgical History / Comment(s): lumpectomy @ 65 left breast, chemo/radiation. Past Anesthesia/Blood Transfusion Reactions: No Reported Reaction Past Psychological History: No Psychological Hx Reported Smoking Status: Former smoker Past Alcohol Use History: None Reported Additional Past Alcohol Use History / Comment(s): Has been smoking for 48-49 yrs, 5 cigarettes per day. quit smoking december 2018 Past Drug Use History: None Reported - Past Family History Mother Family Medical History: No Reported History Brother(s) Family Medical History: Cancer Medications and Allergies Home Medications Medication Instructions Recorded Confirmed Type Letrozole 2.5 mg PO DAILY 12/04/17 02/27/19 History Nateglinide 60 mg PO DAILY 02/25/18 02/27/19 History Losartan [Cozaar] 50 mg PO DAILY tab 02/27/18 02/27/19 Rx Pantoprazole Sodium [Protonix] 40 mg PO BID #60 tablet.dr 02/27/18 02/27/19 Rx Glimepiride [Amaryl] 1 mg PO BID 02/27/19 02/27/19 History Allergies Allergy/AdvReac Type Severity Reaction Status Date / Time No Known Allergies Allergy Verified 01/20/19 11:52 Surgical - Exam Vital Signs Temp Pulse Resp BP Pulse Ox 98.0 F 108 H 16 142/85 96 02/27/19 14:58 02/27/19 14:58 02/27/19 14:58 02/27/19 14:58 02/27/19 14:58 BMI 24.5 - General well developed, well nourished, no distress - Eyes normal ocular movement - ENT no hearing loss, no congestion - Neck no masses, trachea midline - Respiratory Decreased breath sounds at bases bilateral normal respiratory effort, clear to auscultation - Cardiovascular Rhythm: regular Heart Sounds: normal: S1, S2 - Abdomen Abdomen: soft, non tender, no guarding, no rigid, no rebound - Integumentary normal turgor - Neurologic no disoriented, no combative - Musculoskeletal normal gait, normal posture - Psychiatric oriented to time, oriented to person, oriented to place, speech is normal, memory intact breast exam: bra 36C, patient must wear insert for left breast secondary to asymmetry Right breast: Multi-positional exam no dominant masses or nodules of concern, right breast approximately one quarter size larger than the left breast Right axilla: No adenopathy of concern Left breast: Scar from post lumpectomy changes, nipple inverted, firmness as scarring lateral aspect of the breast Left axilla, no adenopathy of concern Results Mammogram and ultrasound reviewed Assessment and Plan Assessment: Impression: 1. Personal history of stage II left breast cancer 2. Fibrocystic breast changes 3. Epithelial atypia on core biopsy of left breast 4. Mammogram abnormality left breast 5. Ultrasound abnormality left breast 6. Diabetes 7. Nicotine dependence 8. Asymmetry of breast Plan: 1. Needle local excisional biopsy of 2 areas of concern in the left breast, they are at 2:00 and 3:00 2. Medical clearance 3. Consider symmetry procedure after left breast is evaluated CC: DR. Bradford Wallis
[~2019-04-14 07:48] MED LIST changes: -ALPRAZolam 0.25 MG TAB PO PRN; -ALPRAZolam 0.5 MG TAB PO PRN; -ASPIRIN 325 MG TAB PO STA; -ATORVASTATIN 80 MG TAB PO STA; +DEXAMETHASONE SOD PHOSPHATE 10 MG/ML 1 ML VIAL IV ONE; +HEPARIN SODIUM,PORCINE 5,000 UNIT/ML 1 ML VIAL SQ ONE; +HYDROmorphone 0.5 MG/0.5 ML SYRINGE IVP PRN; +LACTATED RINGERS 1,000 ML IV SCH; +LIDOCAINE 1% 20 ML VIAL (10MG/ML) FOR IV START INTRADERMA PRN; -NITROGLYCERIN SL TABS 0.4 MG TAB SUBLINGUAL PRN; +ONDANSETRON 4 MG/2 ML VIAL IVP ONE; +Pre Op ABX Message 1 EACH MISC MISCELLANE ONE; -SODIUM CHLORIDE 0.9% 1,000 ML in EMPTY BAG 1 BAG IV ONE
[2019-04-14] MEDS ORDERED: INSULIN ASPART (NovoLOG) 100 UNIT/ML VIAL SQ ONE ×2 (08:35→09:51)
[2019-04-14 08:37] LABS: Glucose,Whole Blood 297 mg/dL (75-99)
[2019-04-14] MEDS ORDERED: LIDOCAINE 1% INJ 10MG/ML (20 ML MDV) SQ ONE ×2 (09:01→12:21)
[2019-04-14 09:41] LABS: Glucose,Whole Blood 228 mg/dL (75-99)
[2019-04-14 11:20] LABS: Glucose,Whole Blood 103 mg/dL (75-99)
[2019-04-14] MEDS ORDERED: LIDOCAINE 1% INJ 10MG/ML (20 ML MDV) ONE (11:28)
[2019-04-14] MEDS ORDERED: MIDAZOLAM 2 MG/2 ML VIAL ONE (11:28)
[2019-04-14] MEDS ORDERED: PHENYLEPHRINE-0.9% NACL SYG 1 MG/10 ML SYRINGE ONE (11:28)
[2019-04-14] MEDS ORDERED: ETOMIDATE 2 MG/ML 10 ML VIAL ONE (11:28)
[2019-04-14] MEDS ORDERED: fentaNYL (PF) 50 MCG/ML 2 ML AMP ONE (11:28)
--- NOTE | 2019-04-14 12:21 | P.OP ---
Date of Procedure: 04/14/19 Preoperative Diagnosis: 2:00 lesion core biopsy of the left breast atypia, 3:00 lesion to be excised at the same time as 2:00 lesion, patient is status post left breast lumpectomy for invasive ductal carcinoma Postoperative Diagnosis: Same Procedure(s) Performed: Localization of 2 areas of concern in the left breast with excisional biopsy Description of Procedure: The patient is a 73-year-old black female who underwent needle localization of 2 areas of concern in the left breast. She is status post left breast lumpectomy in the past for invasive ductal carcinoma. She also had radiation therapy to the left breast. Following localization of the 2 areas of concern in the left breast patient was brought to the operating room. An incision was made in her prior incision and carried down to the shaft of both needles. Wide excision was performed. Hemostasis was attained using electrocautery device. The deeper tissues were brought together using 3-0 Vicryl suture after titanium clips and placed to daron the cavity. The specimen was painted for orientation. Radiograph of the specimen revealed the area of concern about removed. Should be noted that the dissection was carried down to the pectoralis muscle and skin was removed anteriorly. After assured that hemostasis was attained the subcutaneous tissues were closed using 3-0 Vicryl suture. A subcuticular 4-0 Monocryl suture was placed. An additional nylon skin suture was placed. The patient tolerated the procedure in stable condition. All instrument and sponge counts were correct at the end of the case.
--- NOTE | 2019-04-14 12:24 | P.DS ---
Providers Attending physician: Catina Leo Primary care physician: Bradford Wallis Plan - Discharge Summary Discharge Rx Participant: Yes New Discharge Prescriptions: No Action Letrozole 2.5 mg PO DAILY Nateglinide 60 mg PO DAILY Losartan [Cozaar] 50 mg PO DAILY tab Pantoprazole Sodium [Protonix] 40 mg PO BID #60 tablet. Glimepiride [Amaryl] 1 mg PO BID Liraglutide [Victoza 2-Brian] 0.6 mg SQ DAILY Discharge Medication List Letrozole 2.5 mg PO DAILY 12/04/17 [History] Nateglinide 60 mg PO DAILY 02/25/18 [History] Losartan [Cozaar] 50 mg PO DAILY tab 02/27/18 [Rx] Pantoprazole Sodium [Protonix] 40 mg PO BID #60 tablet. 02/27/18 [Rx] Glimepiride [Amaryl] 1 mg PO BID 02/27/19 [History] Liraglutide [Victoza 2-Brian] 0.6 mg SQ DAILY 04/14/19 [History] Follow up Appointment(s)/Referral(s): Catina Leo MD [STAFF PHYSICIAN] - 1 Week Activity/Diet/Wound Care/Special Instructions: do not drive until seen by DR. Wallis may shower after 48 hours wear bra at all times Discharge Disposition: HOME SELF-CARE
[2019-04-14 12:50] VITALS: TEMP 98.3
--- NOTE | 2019-04-14 12:57 | USB ---
EXAMINATION TYPE: US breast local each add LT, US breast surgical specimen LT, US breast localization LT DATE OF EXAM: 04/14/2019 COMPARISON: NONE CLINICAL HISTORY: R92.8 ABNORMAL MAMMOGRAM. History of breast malignancy. Localization for left 2:00 lesion as well as at the 3:00 position at the site of scarring. Informed consent was obtained and all the patient's questions were answered. Appropriate local anesthesia was obtained with 1% lidocaine. Standard sterile technique was utilized. Under sonographic guidance the left 2:00 lesion with internal clip as well as the left 3:00 site of scarring were localized. Placement of a localization needle followed by guidewire placement was performed at each site. The patient left the department in stable condition. Specimen sonogram demonstrates both lesions to reside within the specimen submitted. IMPRESSION: Successful to site ultrasound guided needle localization and open biopsy left breast with pathology results pending. Pathology Results: Malignant LEFT BREAST, NEEDLE LOCALIZATION EXCISION: Focal residual/recurrent invasive ductal carcinoma and ductal carcinoma in situ (DCIS) in background scar with calcifications. Margins negative for invasive malignancy and DCIS. See Surgical Pathology Cancer Case Summary and Comment. Recommendation Surgical consult of the left breast. Continued surgical/medical management. MTDD
[2019-04-14 13:22] LABS: Glucose,Whole Blood 90 mg/dL (75-99)
[2019-04-14 13:42] VITALS: RESP 16
[2019-04-14 14:09] VITALS: BP 126/75; PULSE 94
--- NOTE | 2019-04-15 09:07 | MM ---
Reason for exam: additional evaluation requested from abnormal screening. Last mammogram was performed 3 months ago. History: Patient is postmenopausal and has history of breast cancer at age 73. Benign US biopsy breast VAD LT of the left breast, January 20, 2019. Lumpectomy of the left breast, 2011. Chemotherapy, 2011. Radiation therapy, 2011. Taking antineoplastic for 7 years beginning at age 65. MG Diagnostic Mammo LT Wo CAD CC and MLO view(s) were taken of the left breast. Prior study comparison: January 20, 2019, left breast MG diagnostic mammo LT wo CAD. December 24, 2018, bilateral MG 3d diag mammo w/cad ALEX. ASSESSMENT: Post procedure mammogram for marker placement RECOMMENDATION: Ultrasound of the left breast in 6 months. PENDING PATHOLOGY RESULTS.
== END 2019-04-14 14:30 | disposition home or self-care (01) ==
LOC: OR 07:48
PROVIDERS: ATTEND Surgery
DX: C50.912 Malignant neoplasm of unspecified site of left female breast (principal); D05.12 Intraductal carcinoma in situ of left breast; Z17.0 Estrogen receptor positive status [ER+]; N60.19 Diffuse cystic mastopathy of unspecified breast; N64.89 Other specified disorders of breast; I11.0 Hypertensive heart disease with heart failure; I50.9 Heart failure, unspecified; R25.2 Cramp and spasm; R07.9 Chest pain, unspecified; I51.0 Cardiac septal defect, acquired; E11.9 Type 2 diabetes mellitus without complications; K28.9 Gastrojejunal ulcer, unspecified as acute or chronic, without hemorrhage or perforation; K21.9 Gastro-esophageal reflux disease without esophagitis; E78.5 Hyperlipidemia, unspecified; K08.109 Complete loss of teeth, unspecified cause, unspecified class; F17.210 Nicotine dependence, cigarettes, uncomplicated; Z79.899 Other long term (current) drug therapy; Z79.84 Long term (current) use of oral hypoglycemic drugs; Z85.3 Personal history of malignant neoplasm of breast; Z92.3 Personal history of irradiation; Z92.21 Personal history of antineoplastic chemotherapy; Z98.890 Other specified postprocedural states; Z79.811 Long term (current) use of aromatase inhibitors; Z78.0 Asymptomatic menopausal state; Z86.79 Personal history of other diseases of the circulatory system; Z80.8 Family history of malignant neoplasm of other organs or systems
CPT/HCPCS: 19125; 88342; 88307; 88341; 77065; 76999; 19285; 19286; J2250; J1644; J1100; J2405; J2001; J3010; J2370

== ENCOUNTER 2019-04-16 06:21 | Inpatient (IN) | payer MEDICARE, OTHER ==
[2019-04-16] MEDS ORDERED: SODIUM CHLORIDE 0.9% 1,000 ML IV STA (06:43)
--- NOTE | 2019-04-16 07:02 | XR ---
EXAMINATION TYPE: XR chest 2V DATE OF EXAM: 04/16/2019 COMPARISON: Prior chest x-ray February 23, 2018 HISTORY: Recent left breast lumpectomy 2 days ago with shortness of breath and palpitations TECHNIQUE: Frontal and lateral views of the chest are obtained. FINDINGS: Overlying EKG leads are now seen. Cardiac silhouette size is mildly enlarged on current st udy with atherosclerotic thoracic aorta. There is new mild central vascular congestion and interstiti al edema with Yesenia B lines in the left midlung periphery. Tiny bilateral pleural effusions with rajesh nting of bilateral costophrenic angles. Additional bibasilar opacities. Osseous structures are demine ralized. Surgical changes to left breast with new overlying clips and lucent area favoring product of recent surgical excision noted. IMPRESSION: Suspect CHF exacerbation as there is new mild cardiomegaly with mild interstitial edema, central vascular congestion, and small to tiny bilateral pleural effusions. Correlate clinically. In addition there is new bibasilar acute infiltrate and/or atelectasis noted.
[2019-04-16 07:05] LABS: Basophils % (A) 0 %; Eosinophils # (A) 0.1 k/uL (0-0.7); Eosinophils % (A) 1 %; HCT 46.5 % (34.0-46.0); HGB 15.1 gm/dL (11.4-16.0); Lymphocytes # (A) 1.9 k/uL (1.0-4.8); Lymphocytes % (A) 21 %; MCH 30.5 pg (25.0-35.0); MCHC 32.4 g/dL (31.0-37.0); MCV 93.9 fL (80.0-100.0); Mean Platelet Volume 7.7; Monocytes # (A) 0.8 k/uL (0-1.0); Monocytes % (A) 9 %; Neutrophils # (A) 6.3 k/uL (1.3-7.7); Neutrophils % (A) 68 %; Platelet Count 297 k/uL (150-450); RBC 4.95 m/uL (3.80-5.40); RDW 12.8 % (11.5-15.5); WBC 9.3 k/uL (3.8-10.6)
[2019-04-16] MEDS ORDERED: ASPIRIN 81 MG PO STA (07:08)
[2019-04-16] MEDS ORDERED: NITROGLYCERIN SL TABS 0.4 MG TAB SUBLINGUAL STA (07:08)
[2019-04-16] MEDS ORDERED: NITROGLYCERIN OINT 1 INCH/GM PACKET TOPICAL STA (07:08)
--- NOTE | 2019-04-16 07:11 | ED ---
General Adult HPI - General Chief complaint: Arrhythmia/Palpitations Stated complaint: Chest Pain Time Seen by Provider: 04/16/19 07:00 Source: patient, RN notes reviewed, old records reviewed Mode of arrival: ambulatory Limitations: no limitations - History of Present Illness Initial comments: This is a 73-year-old female with past medical history significant for smoking diabetes hypertension high cholesterol. Patient states 1:00 this morning she wo ke up with chest pain and shortness of breath. Patient states pain has gone away but if she lays back or shortness of breath returns. Patient denies any diaphoretic episodes associated with this. Patient denies any nausea. Patient denies any chest pain currently. Patient denies any abdominal pain patient's nausea vomiting diarrhea. Patient denies any swelling to legs or calf tenderness. Patient denies any history of congestive heart failure. Patient denies any lightheadedness or dizziness. Patient denies headache patient denies numbness weakness. Patient's any back pain. - Related Data Home Medications Medication Instructions Recorded Confirmed Letrozole 2.5 mg PO DAILY 12/04/17 04/14/19 Nateglinide 60 mg PO DAILY 02/25/18 04/14/19 Glimepiride [Amaryl] 1 mg PO BID 02/27/19 04/14/19 Liraglutide [Victoza 2-Brian] 0.6 mg SQ DAILY 04/14/19 04/14/19 Previous Rx's Medication Instructions Recorded Losartan [Cozaar] 50 mg PO DAILY tab 02/27/18 Pantoprazole Sodium [Protonix] 40 mg PO BID #60 tablet. 02/27/18 Allergies Allergy/AdvReac Type Severity Reaction Status Date / Time No Known Allergies Allergy Verified 04/16/19 06:27 Review of Systems ROS Statement: Those systems with pertinent positive or pertinent negative responses have been documented in the HPI. ROS Other: All systems not noted in ROS Statement are negative. Past Medical History Past Medical History: Cancer, Diabetes Mellitus, GERD/Reflux, Hyperlipidemia, Hypertension Additional Past Medical History / Comment(s): LEFT Breast cancer @ 65 years old History of Any Multi-Drug Resistant Organisms: None Reported Past Surgical History: Breast Surgery, Uterine Ablation Additional Past Surgical History / Comment(s): lumpectomy @ 65 left breast. chemo/radiation. LASER SURGERY ON BOTH EYES FOR GLAUCOMA. Past Anesthesia/Blood Transfusion Reactions: No Reported Reaction Past Psychological History: No Psychological Hx Reported Smoking Status: Current every day smoker Past Alcohol Use History: Rare Past Drug Use History: None Reported - Past Family History Mother Family Medical History: No Reported History Brother(s) Family Medical History: Cancer General Exam - General Exam Comments Initial Comments: GENERAL: Patient is well-developed and well-nourished. Patient is nontoxic and well- hydrated and is in mild distress. ENT: Neck is soft and supple. No significant lymphadenopathy is noted. Oropharynx is clear. Moist mucous membranes. Neck has full range of motion without eliciting any pain. EYES: The sclera were anicteric and conjunctiva were pink and moist. Extraocular movements were intact and pupils were equal round and reactive to light. Eyelids were unremarkable. PULMONARY: Unlabored respirations. Good breath sounds bilaterally. Patient has crackles in the bilateral bases CARDIOVASCULAR: There is a regular rate and rhythm without any murmurs gallops or rubs. ABDOMEN: Soft and nontender with normal bowel sounds. No palpable organomegaly was noted. There is no palpable pulsatile mass. SKIN: Skin is clear with no lesions or rashes and otherwise unremarkable. NEUROLOGIC: Patient is alert and oriented x3. Cranial nerves II through XII are grossly intact. Motor and sensory are also intact. Normal speech, volume and content. Symmetrical smile. MUSCULOSKELETAL: Normal extremities with adequate strength and full range of motion. No lower extremity swelling or edema. No calf tenderness. LYMPHATICS: No significant lymphadenopathy is noted PSYCHIATRIC: Normal psychiatric evaluation. Limitations: no limitations Course Vital Signs 04/16/19 04/16/19 06:25 07:24 Temperature 97.9 F Pulse Rate 137 H 121 H Respiratory 18 18 Rate Blood Pressure 173/95 168/124 O2 Sat by Pulse 93 L 96 Oximetry Medical Decision Making - Medical Decision Making I discussed smoking cessation for greater than 3 minutes. The risks of smoking were discussed with the patient including but not limited to risks of cancer, stroke, coronary artery disease and COPD. Also discussed with the patient were multiple methods of quitting smoking. Lastly we discussed the financial costs of smoking. EKG shows sinus tachycardia with occasional PVC at 140 bpm OK interval 132 QRS is 68 QT interval is 280 QTC is 427. Patient's EKG shows no ST segment elevation or depression. Patient's chest x-ray shows congestive heart failure. I gave the patient nitro glycerin sublingual as well as paced else give the patient Lasix. I spoke with [facility] hospital stay agreed to admit the patient admitted the patient wrote admitting orders I continued nitro paste and Lasix on the floor. - Lab Data Result diagrams: 04/16/19 06:40 04/16/19 06:40 Lab Results 04/16/19 04/16/19 04/16/19 Range/Units 06:40 06:40 06:40 WBC 9.3 (3.8-10.6) k/uL RBC 4.95 (3.80-5.40) m/uL Hgb 15.1 (11.4-16.0) gm/dL Hct 46.5 H (34.0-46.0) % MCV 93.9 (80.0-100.0) fL MCH 30.5 (25.0-35.0) pg MCHC 32.4 (31.0-37.0) g/dL RDW 12.8 (11.5-15.5) % Plt Count 297 (150-450) k/uL Neutrophils % 68 % Lymphocytes % 21 % Monocytes % 9 % Eosinophils % 1 % Basophils % 0 % Neutrophils # 6.3 (1.3-7.7) k/uL Lymphocytes # 1.9 (1.0-4.8) k/uL Monocytes # 0.8 (0-1.0) k/uL Eosinophils # 0.1 (0-0.7) k/uL Basophils # 0.0 (0-0.2) k/uL PT 10.4 (9.0-12.0) sec INR 1.0 (<1.2) APTT 23.6 (22.0-30.0) sec Sodium 139 (137-145) mmol/L Potassium 4.6 (3.5-5.1) mmol/L Chloride 98 (98-107) mmol/L Carbon Dioxide 31 H (22-30) mmol/L Anion Gap 10 mmol/L BUN 13 (7-17) mg/dL Creatinine 0.62 (0.52-1.04) mg/dL Est GFR (CKD-EPI)AfAm >90 (>60 ml/min/1.73 sqM) Est GFR (CKD-EPI)NonAf >90 (>60 ml/min/1.73 sqM) Glucose 426 H (74-99) mg/dL Calcium 9.8 (8.4-10.2) mg/dL Magnesium 1.6 (1.6-2.3) mg/dL Total Bilirubin 0.5 (0.2-1.3) mg/dL AST 85 H (14-36) U/L ALT 122 H (9-52) U/L Alkaline Phosphatase 95 (38-126) U/L Troponin I (0.000-0.034) ng/mL NT-Pro-B Natriuret Pep pg/mL Total Protein 7.0 (6.3-8.2) g/dL Albumin 4.3 (3.5-5.0) g/dL 04/16/19 04/16/19 Range/Units 06:40 06:40 WBC (3.8-10.6) k/uL RBC (3.80-5.40) m/uL Hgb (11.4-16.0) gm/dL Hct (34.0-46.0) % MCV (80.0-100.0) fL MCH (25.0-35.0) pg MCHC (31.0-37.0) g/dL RDW (11.5-15.5) % Plt Count (150-450) k/uL Neutrophils % % Lymphocytes % % Monocytes % % Eosinophils % % Basophils % % Neutrophils # (1.3-7.7) k/uL Lymphocytes # (1.0-4.8) k/uL Monocytes # (0-1.0) k/uL Eosinophils # (0-0.7) k/uL Basophils # (0-0.2) k/uL PT (9.0-12.0) sec INR (<1.2) APTT (22.0-30.0) sec Sodium (137-145) mmol/L Potassium (3.5-5.1) mmol/L Chloride (98-107) mmol/L Carbon Dioxide (22-30) mmol/L Anion Gap mmol/L BUN (7-17) mg/dL Creatinine (0.52-1.04) mg/dL Est GFR (CKD-EPI)AfAm (>60 ml/min/1.73 sqM) Est GFR (CKD-EPI)NonAf (>60 ml/min/1.73 sqM) Glucose (74-99) mg/dL Calcium (8.4-10.2) mg/dL Magnesium (1.6-2.3) mg/dL Total Bilirubin (0.2-1.3) mg/dL AST (14-36) U/L ALT (9-52) U/L Alkaline Phosphatase (38-126) U/L Troponin I 0.056 H* (0.000-0.034) ng/mL NT-Pro-B Natriuret Pep 2840 pg/mL Total Protein (6.3-8.2) g/dL Albumin (3.5-5.0) g/dL Critical Care Time Critical Care Time: Yes Total Critical Care Time: 35 Disposition Clinical Impression: Acute pulmonary edema, Unstable angina Disposition: ADMITTED IP TO THIS HOSP Referrals: Bradford Wallis MD [Primary Care Provider] - 1-2 days Time of Disposition: 07:59
[2019-04-16] MEDS ORDERED: FUROSEMIDE 10 MG/ML 4 ML VIAL IV STA (07:15)
[2019-04-16 07:17] LABS: Partial Thromboplastin Time 23.6 sec (22.0-30.0); Prothrombin Time 10.4 sec (9.0-12.0)
[2019-04-16 07:23] LABS: ALT 122 U/L (9-52); AST 85 U/L (14-36); African American GFR (CKD) >90 (>60 ml/min/1.73 sqM); Albumin 4.3 g/dL (3.5-5.0); Alkaline Phosphatase 95 U/L (38-126); Anion Gap 10 mmol/L; Blood Urea Nitrogen 13 mg/dL (7-17); Calcium 9.8 mg/dL (8.4-10.2); Carbon Dioxide 31 mmol/L (22-30); Chloride 98 mmol/L (98-107); Glucose 426 mg/dL (74-99); Magnesium 1.6 mg/dL (1.6-2.3); Non-African American GFR(CKD) >90 (>60 ml/min/1.73 sqM); Potassium 4.6 mmol/L (3.5-5.1); Sodium 139 mmol/L (137-145); Total Bilirubin 0.5 mg/dL (0.2-1.3)
[2019-04-16] MEDS ORDERED: hydrALAZINE HCL 20 MG/ML 1 ML VIAL IVP STA (08:04)
[2019-04-16] MEDS ORDERED: HEPARIN SODIUM,PORCINE 5,000 UNIT/ML 1 ML VIAL IV ONE ×2 (08:24→11:45)
[2019-04-16] MEDS: ENALAPRILAT 1.25 MG/ML 1 ML VIAL IVP STA ×2 (08:29→08:32)
[2019-04-16] MEDS ORDERED: HEPARIN SOD,PORK IN 0.45% NACL 25,000 UNIT in 0.45% NACL 1 250ML.BAG IV SCH (08:30)
[2019-04-16] MEDS ORDERED: FUROSEMIDE 40 MG TAB PO SCH (09:00)
[2019-04-16] MEDS: NITROGLYCERIN OINT 1 INCH/GM PACKET TOPICAL SCH ×4 (09:16→21:17)
[2019-04-16] MEDS ORDERED: INSULIN ASPART (NovoLOG) 100 UNIT/ML VIAL SQ ONE (09:44)
[2019-04-16 10:39] LABS: Glucose,Whole Blood 299 mg/dL (75-99)
[2019-04-16] MEDS ORDERED: Magnesium Replacement Protocol 1 EACH MISC MISCELLANE PRN (11:20)
[2019-04-16] MEDS ORDERED: HEPARIN SODIUM,PORCINE 5,000 UNIT/ML 1 ML VIAL IV PRN (11:31)
[2019-04-16 11:41] LABS: Glucose,Whole Blood 283 mg/dL (75-99)
[2019-04-16] MEDS: MAGNESIUM SULFATE-D5W PMX 1 GM in DEXTROSE/WATER 1 100ML.BAG IVPB SCH ×2 (12:29→14:59)
[2019-04-16] MEDS: METOPROLOL SUCCINATE (ER) 25 MG TAB.ER.24H PO SCH (12:31)
[2019-04-16] MEDS: INSULIN ASPART (NovoLOG) 100 UNIT/ML VIAL SQ SCH ×3 (12:31→21:06)
[2019-04-16] MEDS: HEPARIN SOD,PORK IN 0.45% NACL 25,000 UNIT in 0.45% NACL 1 250ML.BAG IV SCH (12:32)
[2019-04-16] MEDS ORDERED: ALPRAZolam 0.25 MG TAB PO PRN (13:29)
[2019-04-16] MEDS ORDERED: HYDROcodone/APAP 5-325MG 1 EACH TAB PO PRN (13:29)
--- NOTE | 2019-04-16 13:41 | CONS ---
CONSULTATION CHIEF COMPLAINT: Sudden onset shortness of breath. Waleska is a 73-year-old lady with history of cardiomyopathy who underwent lumpectomy 2 days ago and subsequently developed sudden-onset shortness of breath and chest tightness. She came to the ER and was found to be in acute pulmonary edema and is admitted to hospital for the same. An EKG shows sinus tachycardia, PVCs with nonspecific ST-T wave changes. Her hemoglobin is normal. Troponin is elevated at 0.056. BNP is elevated at 2840. An echocardiogram done recently showed severe LV systolic dysfunction with ejection fraction of 20% to 25%. PAST MEDICAL HISTORY: Significant for [id number] diabetes. CURRENT MEDICATIONS: Include Victoza, letrozole, Amaryl, Protonix. ALLERGIES: There are no known drug allergies. FAMILY HISTORY: Negative for premature coronary artery disease. SOCIAL HISTORY: Negative for smoking, EtOH abuse, or drug abuse. REVIEW OF SYSTEMS: HEENT: Unremarkable. CARDIAC: As described above. RESPIRATORY: As described above. GI: Negative. : Negative. ALLERGY: Negative. SKIN: Negative. MUSCULOSKELETAL: Negative. ENDOCRINE: Negative. CONSTITUTIONAL: Negative. ONCOLOGICAL: Negative. PHYSICAL EXAMINATION: On exam, patient is comfortable at rest. Heart rate is 98 beats per minute, blood pressure is 118/90, respiratory rate, O2 sat is 97% on 2 L. There is no jugular venous distention. Chest exam reveals occasional crackles bilaterally. Heart exam reveals first and second heart sounds and a systolic murmur at the apex. Abdomen is soft. Exam of extremities did not reveal any edema. Peripheral pulses are felt. LABS: Show a hemoglobin of 15.1, platelet count is 297. Potassium is 4.6, creatinine is 0.6. Troponin is elevated. BNP is elevated. ASSESSMENT: 1. Acute non ST-segment elevation myocardial infarction. 2. Acute onset systolic heart failure. PLAN: I will treat the patient with aspirin, nitrates, beta blockers, start her on PAIGE inhibitors and statin and she will be treated with IV heparin. I will put her on IV Lasix 20 mg b.i.d. When she is more stable she will need a cardiac catheterization. MMODL / IJN: [id number] /
[2019-04-16] MEDS: NATEGLINIDE PO SCH (13:53)
[2019-04-16] MEDS: NON FORMULARY DRUG (Liraglutide [Victoza 2-Pak] 0.6 MG) SQ SCH (13:53)
[2019-04-16] MEDS: GLIMEPIRIDE 1 MG TAB PO SCH ×2 (14:59→21:06)
[2019-04-16] MEDS: LETROZOLE 2.5 MG TAB PO SCH (14:59)
--- NOTE | 2019-04-16 15:44 | HP ---
HISTORY AND PHYSICAL DATE OF SERVICE: 04/16/2019 I am covering for Dr. Wallis. CHIEF COMPLAINT: Chest pain and shortness of breath. HISTORY OF PRESENT ILLNESS: This 73-year-old woman with a past history of diabetes, hypertension, hyperlipidemia, GERD, history of nicotine dependence, being followed by Dr. Wallis in the outpatient setting, had multiple breast surgeries. Most recently patient had lumpectomy. Apparently recently on the left breast some swelling was noted by Dr. Whitley Leo and the patient underwent excisional biopsy by Dr. Whitley Quiñonez. The patient last night came with complaints of shortness of breath which started about 1 o'clock in the morning and the shortness of breath was more when the patient is lying flat. Patient also complaining of chest discomfort in the anterior part of the chest. Patient was taken to [facility] and admitted for further evaluation and treatment. The EKG in the ER showed sinus tachycardia with occasional PVCs and the lab work showed troponin elevated 0.056 and the patient also had features of CHF exacerbation and admitted for further evaluation and treatment. Patient started on IV Lasix twice daily. Cardiology evaluation underway at this time. There is no history of any fever, rigors or chills. Blood sugars elevated. PAST MEDICAL HISTORY: History of diabetes type 2, GERD, hypertension, hyperlipidemia, history of left breast cancer and excisional biopsy, history of nicotine dependence. MEDICATIONS PRIOR TO ADMISSION: 1. Protonix 40 mg. 2. Mitiglinide 60 mg p.o. daily. 3. Victoza 0.6 daily. 4. Letrozole 2.5 mg daily. 5. ( ) 1 mg p.o. b.i.d. ALLERGIES: None. FAMILY HISTORY: History of cancer in the family. SOCIAL HISTORY: Continues smoking. No history of alcohol intake. REVIEW OF SYSTEMS: ENT No history of diminished hearing or vision. CARDIOVASCULAR As mentioned earlier. RESPIRATORY As mentioned earlier. GI No nausea, vomiting, or diarrhea. No dysuria. NERVOUS No numbness or weakness. ALLERGY/IMMUNOLOGY No asthma or hayfever. MUSCULOSKELETAL As mentioned earlier. HEMATOLOGY/ONCOLOGY Negative. ENDOCRINE As mentioned earlier. CONSTITUTIONAL As mentioned earlier. DERMATOLOGY Negative. PSYCHIATRY As mentioned earlier. PHYSICAL EXAMINATION: GENERAL Patient is alert and oriented times three. VITAL SIGNS Pulse 108, blood pressure 109/60, respirations 15, temperature 98.1, pulse ox 94% on room air. HEENT: Conjunctivae normal. Oral mucosa moist. NECK: No jugular venous distention. No lymph node enlargement. CARDIOVASCULAR: S1, S2. RESPIRATORY: Diminished breath sounds at the bases. A few scattered rhonchi and crackles. On examination of the left breast there is some slight swelling. No bleeding. Slight discomfort. No tenderness. ABDOMEN: Soft, nontender. No mass palpable. LEGS: No edema, no swelling. NERVOUS SYSTEM: Higher functions mentioned earlier. Moves all four limbs. No focal deficits. LYMPHATICS: No lymph node in neck or axilla. SKIN: No rash. JOINTS: No active deforming arthropathy. LABS: CBC within normal limits and glucose 426. The NT proBNP is 2840. Troponin 0.05. Chest x-ray, EKG personally reviewed by me. ASSESSMENT: 1. Congestive heart failure acute exacerbation with ejection fraction unknown. 2. Chest pain, possible unstable angina, rule out acute non-ST elevation myocardial infarction. 3. Troponin 0.056. 4. Diabetes mellitus type 2, uncontrolled with hyperglycemia. 5. History of gastroesophageal reflux disease. 6. Hypertension. 7. Hyperlipidemia. 8. History of left breast excisional biopsy recently. 9. History of left breast cancer. 10.History of uterine ablation. 11.History of ongoing nicotine dependence. 12.FULL CODE. 13.Severe protein-calorie malnutrition with BMI of 17.9. RECOMMENDATIONS AND DISCUSSION: In this 73-year-old woman who presented with multiple complex medical issues, we will monitor the patient closely, continue the current medications, continue symptomatic treatment. Continue with diuretics. Otherwise, I would also recommend IV heparin as suggested by Cardiology. We will continue to monitor, observe the left breast for any increase in swelling. Otherwise, monitor lytes closely. The blood sugars are elevated. Will resume the previous medication. Obtain hemoglobin A1c and continue to monitor. Further recommendations to follow. The prognosis guarded. MMODL / IJN: [id number] /
[2019-04-16] MEDS ORDERED: DOCUSATE 100 MG CAP PO PRN (16:20)
[2019-04-16 16:35] LABS: Glucose,Whole Blood 180 mg/dL (75-99)
[2019-04-16 20:59] LABS: Glucose,Whole Blood 145 mg/dL (75-99)
[2019-04-16] MEDS: FUROSEMIDE 10 MG/ML 2 ML VIAL IV SCH (21:05)
[2019-04-17 03:02] LABS: Basophils % (A) 0 %; Eosinophils # (A) 0.1 k/uL (0-0.7); Eosinophils % (A) 1 %; HCT 39.4 % (34.0-46.0); HGB 13.1 gm/dL (11.4-16.0); Lymphocytes # (A) 2.3 k/uL (1.0-4.8); Lymphocytes % (A) 29 %; MCH 30.2 pg (25.0-35.0); MCHC 33.1 g/dL (31.0-37.0); MCV 91.2 fL (80.0-100.0); Mean Platelet Volume 7.4; Monocytes # (A) 0.6 k/uL (0-1.0); Monocytes % (A) 8 %; Neutrophils # (A) 4.6 k/uL (1.3-7.7); Neutrophils % (A) 60 %; Platelet Count 268 k/uL (150-450); RBC 4.32 m/uL (3.80-5.40); RDW 12.9 % (11.5-15.5); WBC 7.7 k/uL (3.8-10.6)
[2019-04-17 03:13] LABS: African American GFR (CKD) >90 (>60 ml/min/1.73 sqM); Anion Gap -1 mmol/L; Blood Urea Nitrogen 17 mg/dL (7-17); Carbon Dioxide 36 mmol/L (22-30); Chloride 99 mmol/L (98-107); Glucose 199 mg/dL (74-99); Potassium 3.9 mmol/L (3.5-5.1); Sodium 134 mmol/L (137-145)
[2019-04-17 03:14] LABS: Magnesium 1.8 mg/dL (1.6-2.3); Non-African American GFR(CKD) >90 (>60 ml/min/1.73 sqM)
[2019-04-17 06:56] LABS: Glucose,Whole Blood 174 mg/dL (75-99)
[2019-04-17] MEDS: PANTOPRAZOLE 40 MG TABLET PO SCH (07:10)
[2019-04-17] MEDS: INSULIN ASPART (NovoLOG) 100 UNIT/ML VIAL SQ SCH ×4 (07:12→21:46)
[2019-04-17] MEDS: GLIMEPIRIDE 1 MG TAB PO SCH ×2 (08:54→20:24)
[2019-04-17] MEDS: NON FORMULARY DRUG (Liraglutide [Victoza 2-Pak] 0.6 MG) SQ SCH (08:54)
[2019-04-17] MEDS: FUROSEMIDE 10 MG/ML 2 ML VIAL IV SCH ×2 (08:54→20:24)
[2019-04-17] MEDS: LETROZOLE 2.5 MG TAB PO SCH (08:54)
[2019-04-17] MEDS: LISINOPRIL 2.5 MG TAB PO SCH (08:54)
[2019-04-17] MEDS: NATEGLINIDE PO SCH (08:55)
[2019-04-17] MEDS: METOPROLOL SUCCINATE (ER) 25 MG TAB.ER.24H PO SCH (08:55)
[2019-04-17] MEDS: NITROGLYCERIN OINT 1 INCH/GM PACKET TOPICAL SCH ×4 (08:55→21:46)
[2019-04-17 11:32] LABS: Hemoglobin A1C 12.3 % (4.0-6.0)
[2019-04-17 11:45] LABS: Glucose,Whole Blood 263 mg/dL (75-99)
[2019-04-17] MEDS: HEPARIN SOD,PORK IN 0.45% NACL 25,000 UNIT in 0.45% NACL 1 250ML.BAG IV SCH (11:48)
--- NOTE | 2019-04-17 12:15 | PN ---
PROGRESS NOTE This 73-year-old lady is admitted to hospital with acute pulmonary edema, had mild non ST-segment elevation [place]. This morning, she is feeling better. Shortness of breath has improved. PHYSICAL EXAMINATION: On exam, vital signs are stable. Chest exam does not reveal any crackles. Heart exam reveals first and second heart sounds. No gallop. Exam of extremities did not reveal any edema. The patient is currently on aspirin, Lasix 20 mg IV b.i.d., Amaryl, intravenous heparin, Zestril 2.5 mg daily, Toprol XL 25 mg daily and nitro paste. LABS: Labs show that the hemoglobin is 13.1, platelet count is 268, potassium is 3.9, creatinine is 0.6. ASSESSMENT: 1. Acute non ST-segment elevation myocardial infarction. 2. Acute pulmonary edema. 3. Cardiomyopathy with severe left ventricular dysfunction. PLAN: Will treat the patient with continued medical therapy. I will switch the Lasix to p.o. tomorrow morning. Continue the heparin. We will consider cardiac catheterization on Saturday. EMI / DANIELN: [id number] /
[2019-04-17 16:41] LABS: Glucose,Whole Blood 86 mg/dL (75-99)
[2019-04-17] MEDS: ACETAMINOPHEN TAB 500 MG TAB PO PRN (18:57)
[2019-04-17 19:26] LABS: Basophils % (A) 0 %; Eosinophils # (A) 0.1 k/uL (0-0.7); Eosinophils % (A) 2 %; HCT 41.3 % (34.0-46.0); HGB 13.5 gm/dL (11.4-16.0); Lymphocytes # (A) 2.3 k/uL (1.0-4.8); Lymphocytes % (A) 33 %; MCH 30.2 pg (25.0-35.0); MCHC 32.6 g/dL (31.0-37.0); MCV 92.7 fL (80.0-100.0); Mean Platelet Volume 8.1; Monocytes # (A) 0.6 k/uL (0-1.0); Monocytes % (A) 8 %; Neutrophils % (A) 55 %; Platelet Count 262 k/uL (150-450); RBC 4.45 m/uL (3.80-5.40); RDW 12.9 % (11.5-15.5); WBC 7.2 k/uL (3.8-10.6)
--- NOTE | 2019-04-17 20:21 | P.GSHP ---
History of Present Illness H&P Date: 04/17/19 Chief Complaint: question of swelling at breast biopsy site Waleska is a 73-year-old female who underwent a left breast excisional biopsy on 04-14-19. She has a prior history of a left breast cancer approximately 8 years ago. This was treated with a lumpectomy and radiation therapy in [place]. She also received chemotherapy. She had a recent bilateral mammogram performed. Ultrasound core biopsy of the left breast lesion revealed epithelial atypia and needle localization and excision was recommended. She tolerated this procedure without difficulty. The procedure was performed on 04-14-19 and the patient was discharged home without complaints. The patient was admitted through the emergency room on [id number]. Approximately 1:00 that morning she awoke with chest pain and shortness of breath. The patient's pain resolved but the shortness of breath returned. The patient denied any diaphoretic episodes. The patient at that time was not complaining of any pain related to the biopsy site. The EKG at that time showed sinus tachycardia. She had no ST segment elevation or depression. Chest x-ray showed congestive heart failure. The patient additionally was noted to have laboratory studies revealing hemoglobin of 15.1, and a white count of 9.3. Her troponin was 0.056, and her natruretic peptide was 2840. She was admitted with a diagnosis of acute pulmonary edema, and unstable angina. After being seen by cardiology it was felt that the patient had an acute non-ST segment elevation myocardial infarction and acute onset systolic heart failure. The patient was started on IV heparin. Following the IV heparin the patient developed some discomfort at the lumpectomy site and some increased fullness at this site. I was called to evaluate for a possible hematoma as the lumpectomy site had become swollen. Hemoglobin at 2:30 on was 13.1, and repeat at 19:00 was 13.5. The patient states that at this time she has mild discomfort in her left breast. She has not had any fever or chills. WBC 7.2. Medical history: 1. Type 2 diabetes 2. GERD 2. Hypertension 4. Hyperlipidemia 5. History of left breast cancer 6. Nicotine dependence Surgical history: 1. Prior left breast lumpectomy axillary node dissection 2. Recent left breast repeat excisional biopsy Social history: Smoke: 5 cigarettes per day for 50 years Alcohol: Negative Drugs: Negative - Constitutional Constitutional: Denies chills, Denies fever - EENT Eyes: denies blurred vision, denies pain Ears: deny: decreased hearing, tinnitus Ears, nose, mouth and throat: Denies headache, Denies sore throat - Breasts Breasts: bilateral: as per HPI - Cardiovascular Cardiovascular: Reports as per HPI - Respiratory Comment: nicotine dependence Respiratory: Reports as per HPI - Gastrointestinal Comment: history of ulcers Gastrointestinal: Denies abdominal pain, Denies diarrhea, Denies nausea, Denies vomiting - Genitourinary (Female) Genitourinary: Denies dysuria, Denies hematuria - Menstruation Menstruation: Reports postmenopausal - Musculoskeletal Musculoskeletal: Reports muscle cramps - Integumentary Integumentary: Denies pruritus, Denies rash - Neurological Neurological: Denies numbness, Denies weakness - Psychiatric Psychiatric: Denies anxiety, Denies depression - Endocrine Comment: diabetes - Hematologic/Lymphatic Hematologic/Lymphatic: Reports as per HPI - Allergic/Immunologic Allergic/Immunologic: Reports as per HPI Past Medical History Past Medical History: Cancer, Diabetes Mellitus, GERD/Reflux, Hyperlipidemia, Hypertension Additional Past Medical History / Comment(s): LEFT Breast cancer @ 65 years old History of Any Multi-Drug Resistant Organisms: None Reported Past Surgical History: Breast Surgery, Uterine Ablation Additional Past Surgical History / Comment(s): lumpectomy @ 65 left breast. chemo/radiation. LASER SURGERY ON BOTH EYES FOR GLAUCOMA. left lumpectomy 04/14/19 Past Anesthesia/Blood Transfusion Reactions: No Reported Reaction Past Psychological History: No Psychological Hx Reported Smoking Status: Current every day smoker Past Alcohol Use History: Rare Additional Past Alcohol Use History / Comment(s): Has been smoking for 48-49 yrs, 10 cigarettes per day. quit smoking december 2018 Past Drug Use History: None Reported - Past Family History Mother Family Medical History: No Reported History Brother(s) Family Medical History: Cancer Medications and Allergies Home Medications Medication Instructions Recorded Confirmed Type Letrozole 2.5 mg PO DAILY 12/04/17 04/16/19 History Nateglinide 60 mg PO DAILY 02/25/18 04/16/19 History Glimepiride [Amaryl] 1 mg PO BID 02/27/19 04/16/19 History Liraglutide [Victoza 2-Brian] 0.6 mg SQ DAILY 04/14/19 04/16/19 History Pantoprazole Sodium [Protonix] 40 mg PO DAILY 04/16/19 04/16/19 History Allergies Allergy/AdvReac Type Severity Reaction Status Date / Time No Known Allergies Allergy Verified 04/16/19 08:51 Surgical - Exam Vital Signs Temp Pulse Resp BP Pulse Ox 97.9 F 137 H 18 173/95 93 L 04/16/19 06:25 04/16/19 06:25 04/16/19 06:25 04/16/19 06:25 04/16/19 06:25 - General no distress - Eyes normal ocular movement - ENT normal pinna, no hearing loss - Neck no masses, trachea midline - Respiratory slight decreased breath sounds at bases normal expansion, normal respiratory effort, clear to auscultation - Cardiovascular Heart Sounds: normal: S1, S2 - Integumentary mild echymosis lateral aspect of lumpectomy site - Neurologic normal coordination - Psychiatric oriented to time, oriented to person, oriented to place, speech is normal, memory intact Left breast: Incision is clean and dry Mild swelling lateral aspect of the left breast, mild ecchymosis No evidence of infection Probable small hematoma at lumpectomy site Results - Labs 04/17/19 19:12 04/17/19 02:37 Abnormal Lab Results - Last 24 Hours (Table) 04/16/19 04/17/19 04/17/19 Range/Units 20:58 02:37 02:37 APTT 50.4 H (22.0-30.0) sec Sodium (137-145) mmol/L Carbon Dioxide (22-30) mmol/L Glucose (74-99) mg/dL POC Glucose (mg/dL) 145 H (75-99) mg/dL Hemoglobin A1c 12.3 H (4.0-6.0) % 04/17/19 04/17/19 04/17/19 Range/Units 02:37 06:55 11:44 APTT (22.0-30.0) sec Sodium 134 L (137-145) mmol/L Carbon Dioxide 36 H (22-30) mmol/L Glucose 199 H (74-99) mg/dL POC Glucose (mg/dL) 174 H 263 H (75-99) mg/dL Hemoglobin A1c (4.0-6.0) % Diabetes panel 04/17/19 04/17/19 Range/Units 02:37 02:37 Sodium 134 L (137-145) mmol/L Potassium 3.9 (3.5-5.1) mmol/L Chloride 99 (98-107) mmol/L Carbon Dioxide 36 H (22-30) mmol/L BUN 17 (7-17) mg/dL Creatinine 0.62 (0.52-1.04) mg/dL Glucose 199 H (74-99) mg/dL Hemoglobin A1c 12.3 H (4.0-6.0) % Calcium 9.0 (8.4-10.2) mg/dL Calcium panel 04/17/19 Range/Units 02:37 Calcium 9.0 (8.4-10.2) mg/dL Pituitary panel 04/17/19 Range/Units 02:37 Sodium 134 L (137-145) mmol/L Potassium 3.9 (3.5-5.1) mmol/L Chloride 99 (98-107) mmol/L Carbon Dioxide 36 H (22-30) mmol/L BUN 17 (7-17) mg/dL Creatinine 0.62 (0.52-1.04) mg/dL Glucose 199 H (74-99) mg/dL Calcium 9.0 (8.4-10.2) mg/dL Adrenal panel 04/17/19 Range/Units 02:37 Sodium 134 L (137-145) mmol/L Potassium 3.9 (3.5-5.1) mmol/L Chloride 99 (98-107) mmol/L Carbon Dioxide 36 H (22-30) mmol/L BUN 17 (7-17) mg/dL Creatinine 0.62 (0.52-1.04) mg/dL Glucose 199 H (74-99) mg/dL Calcium 9.0 (8.4-10.2) mg/dL Assessment and Plan Assessment: Impression: 1. Personal history of stage II left breast cancer 2. Recent ultrasound core biopsy showing epithelial atypia left breast 3. Recent left breast excisional biopsy, small hematoma at site 4. Diabetes 5. Nicotine dependence 6. Acute non-ST segment elevation [place] 7. Shortness of breath improved Plan: 1. Possible cardiac catheterization as per cardiology 2. Heparin DC'd as per cardiology 3. Bryson wrap to provide pressure dressing at biopsy site 4. Serial CBCs 5. Avoid anticoagulation if possible secondary to recent biopsy, however this must be balanced with her cardiac risk Time with Patient: Greater than 30
--- NOTE | 2019-04-17 20:27 | PN ---
PROGRESS NOTE DATE OF SERVICE: 04/17/2019 This 73-year-old woman who was admitted with CHF, acute exacerbation, also had elevated troponin. Patient is on IV heparin. Patient recently had breast surgery by Dr. Whitley Altamirano. Cardiology is following the patient closely. The patient is complaining of some minimal swelling. The patient is on IV heparin. Cardiology has recommended continued medical therapy for the acute qga-CJ-dzogmwf-elevation myocardial infarction and p.o. Lasix for the CHF. Consider cardiac catheterization on Saturday. Patient is being closely monitored. No chest pain. No palpitations. Past medical history reviewed. REVIEW OF SYSTEMS: CARDIOVASCULAR SYSTEM: As mentioned earlier. RESPIRATORY SYSTEM: As mentioned earlier. GI: No nausea, vomiting. : No dysuria or retention. NERVOUS SYSTEM: No numbness, weakness. CURRENT MEDICATIONS: Reviewed. They include: 1. Tylenol p.r.n. 2. [place] 5 mg q.6 p.r.n. 3. Xanax 0.125 mg t.i.d. 4. Colace 100 mg daily. 5. Lasix 20 mg IV b.i.d. 6. Lasix 20 mg p.o. b.i.d. 7. Amaryl 1 mg p.o. b.i.d. 8. Heparin b.i.d. 9. NovoLog. 10.Femara 2.5 mg daily. 11.Zestril 2.5 mg daily. 12.Toprol-XL 25 mg p.o. daily. 13.Nitro-Bid. 14.Victoza 2-Brian daily. 15.Nateglinide 60 mg p.o. daily. 16.Protonix 40 mg p.o. daily. PHYSICAL EXAMINATION: Patient alert and oriented x3. Pulse 89, blood pressure 107/67, respiration 10, temperature 98.1, pulse ox 97% on room air. HEENT: Conjunctivae normal. NECK: No jugular venous distention. CARDIOVASCULAR SYSTEM: S1, S2 muffled. RESPIRATORY SYSTEM: Breath sounds diminished at the bases. Scattered rhonchi and crackles. ABDOMEN: Soft, non-tender. LEGS: No edema. No swelling. NERVOUS SYSTEM: No focal deficit. EXAMINATION OF THE LEFT BREAST: Minimal swelling and tenderness present. LAB: CBC within normal limits. Sodium 134. Glucose noted. Hemoglobin A1c 12.3. ASSESSMENT: 1. Congestive heart failure, acute exacerbation, with acute on chronic systolic dysfunction, ejection fraction 20% to 25%. 2. Acute oyx-RW-qkitsmj-elevation myocardial infarction, on medical treatment with chest pain and troponin 0.056. 3. Diabetes mellitus, type 2, uncontrolled with hyperglycemia. Hemoglobin A1c 12.3. 4. History of gastroesophageal reflux disease. 5. History of recent left breast surgery. 6. Hypertension. 7. Hyperlipidemia. 8. History of recent left breast excisional biopsy. 9. History of breast cancer. 10.History of uterine ablation. 11.History of continued ongoing nicotine dependence. 12.Severe protein-calorie malnutrition with body mass index of 17.9. 13.FULL CODE. RECOMMENDATIONS AND DISCUSSION: I recommend to continue current medications, continue with the monitoring, symptomatic treatment. Continue with cautious IV heparin. I would also recommend closely following with Cardiology regarding cardiac catheterization. Continue with antiplatelet agents and diuretics. Dose has been reduced. Will monitor the BUN and creatinine closely. I would also recommend evaluation by Dr. Altamirano because of the recent surgery as well. Monitor blood sugars closely. Further recommendations to follow. MMODL / IJN: [id number] /
[2019-04-17 20:40] LABS: Glucose,Whole Blood 274 mg/dL (75-99)
[2019-04-17 21:38] LABS: Glucose,Whole Blood 268 mg/dL (75-99)
[2019-04-18 06:17] LABS: Glucose,Whole Blood 125 mg/dL (75-99)
[2019-04-18] MEDS: INSULIN ASPART (NovoLOG) 100 UNIT/ML VIAL SQ SCH ×4 (06:23→20:40)
[2019-04-18] MEDS: PANTOPRAZOLE 40 MG TABLET PO SCH (06:27)
[2019-04-18 06:47] LABS: Basophils % (A) 0 %; Eosinophils # (A) 0.1 k/uL (0-0.7); Eosinophils % (A) 2 %; HCT 40.3 % (34.0-46.0); HGB 13.2 gm/dL (11.4-16.0); Lymphocytes # (A) 2.2 k/uL (1.0-4.8); Lymphocytes % (A) 40 %; MCH 30.1 pg (25.0-35.0); MCHC 32.8 g/dL (31.0-37.0); MCV 91.8 fL (80.0-100.0); Mean Platelet Volume 7.1; Monocytes # (A) 0.5 k/uL (0-1.0); Monocytes % (A) 9 %; Neutrophils # (A) 2.6 k/uL (1.3-7.7); Neutrophils % (A) 47 %; Platelet Count 282 k/uL (150-450); RBC 4.39 m/uL (3.80-5.40); RDW 12.8 % (11.5-15.5); WBC 5.5 k/uL (3.8-10.6)
[2019-04-18 06:53] LABS: African American GFR (CKD) >90 (>60 ml/min/1.73 sqM); Anion Gap 3 mmol/L; Blood Urea Nitrogen 17 mg/dL (7-17); Calcium 9.3 mg/dL (8.4-10.2); Carbon Dioxide 39 mmol/L (22-30); Chloride 96 mmol/L (98-107); Glucose 132 mg/dL (74-99); Non-African American GFR(CKD) >90 (>60 ml/min/1.73 sqM); Potassium 4.2 mmol/L (3.5-5.1); Sodium 138 mmol/L (137-145)
[2019-04-18] MEDS: LISINOPRIL 2.5 MG TAB PO SCH (08:08)
[2019-04-18] MEDS: FUROSEMIDE 20 MG TAB PO SCH ×2 (08:08→16:16)
[2019-04-18] MEDS: NITROGLYCERIN OINT 1 INCH/GM PACKET TOPICAL SCH (08:08)
[2019-04-18] MEDS: METOPROLOL SUCCINATE (ER) 25 MG TAB.ER.24H PO SCH (08:08)
[2019-04-18] MEDS: GLIMEPIRIDE 1 MG TAB PO SCH ×2 (08:09→20:39)
[2019-04-18] MEDS: LETROZOLE 2.5 MG TAB PO SCH (08:09)
--- NOTE | 2019-04-18 10:18 | PN ---
PROGRESS NOTE FOLLOW-UP NOTE: Waleska is a 73-year-old lady who is admitted to hospital with pulmonary edema and mild troponin elevation, for which she was on intravenous heparin. She had recent breast surgery and last night developed a hematoma, due to which the IV heparin had been stopped. She has a pressure dressing and is doing well this morning. On exam, comfortable at rest. Afebrile. Heart rate is 90 beats per minute. Blood pressure is 109/60. Respiratory rate is 18. Chest exam reveals good air entry. I do not hear any crackles or rhonchi. Heart exam reveals first and second heart sounds. No gallop. Examination of the extremities did not reveal any edema. The patient is currently on Toprol-XL 25 mg daily, Zestril 2.5 mg daily, Lasix 20 mg b.i.d. and insulin along with nitro paste. ASSESSMENT: 1. Acute pulmonary edema. 2. Cardiomyopathy with severe left ventricular dysfunction. 3. Tku-KK-rurtmbk-elevation myocardial infarction. PLAN: Patient developed hematoma at the recent surgical site. I am not going to give her heparin and I am not going to do the cardiac catheterization at this time. Will treat her with optimal medical therapy, and once the surgical site issues have resolved, I will bring her back and do a cardiac catheterization on her. I am going to stop the nitro paste at this time and, blood pressure tolerating, will increase the dose of Zestril. MMRODNEY / DANIELN: [id number] /
[2019-04-18 12:20] LABS: Glucose,Whole Blood 259 mg/dL (75-99)
[2019-04-18] MEDS: NATEGLINIDE PO SCH (13:00)
[2019-04-18] MEDS: NON FORMULARY DRUG (Liraglutide [Victoza 2-Pak] 0.6 MG) SQ SCH (16:15)
[2019-04-18 16:53] LABS: Glucose,Whole Blood 126 mg/dL (75-99)
[2019-04-18 20:27] LABS: Glucose,Whole Blood 327 mg/dL (75-99)
[2019-04-18] MEDS: HEPARIN SODIUM,PORCINE 5,000 UNIT/ML 1 ML VIAL SQ SCH (20:40)
--- NOTE | 2019-04-18 20:51 | PN ---
PROGRESS NOTE DATE OF SERVICE: 04/18/2019. This 73-year-old woman who was admitted with CHF acute exacerbation, ejection fraction 20 to 25%. The patient has acute ST-segment elevation myocardial infarction, diabetes, also. The patient also had recent breast surgery. The patient is on anticoagulation also. Surgery Dr. Leo and as well as cardiology following the patient closely. The prognosis guarded because of multiple complex medical issues. Patient being closely monitored. Past Medical history reviewed. REVIEW OF SYSTEMS: Cardiovascular system: No angina or palpitations. Otherwise, as mentioned earlier. Respirations: No cough. GI: No nausea or vomiting. : No dysuria or retention. CENTRAL NERVOUS SYSTEM: No numbness or weakness. CURRENT MEDICATIONS: 1. Tylenol 500 mg q.6h. 2. [place] 5 mg. 3. Xanax 0.125 mg t.i.d. 4. Colace 100 mg. 5. Lasix 20 mg b.i.d. 6. Amaryl 1 mg b.i.d. 7. Heparin 5000 subcu b.i.d. 8. Femara. 9. Zestril. 10.Toprol-XL. 11.Victoza. 12.Protonix. PHYSICAL EXAM: Patient is alert, oriented x3. Pulse 98. Blood pressure 148/77, respirations 16, temperature 98.2, pulse ox 98% on room air. HEENT is conjunctivae normal. Oral mucosa moist. NECK is no jugular venous distention. No carotid bruit. No lymph node enlargement. Cardiovascular system: S1, S2 muffled. RESPIRATORY: Breath sounds diminished in the bases. No rhonchi. No crackles. ABDOMEN: Soft, nontender. LEGS are no edema. No swelling. CENTRAL NERVOUS SYSTEM: No focal deficits.. Breasts: Some swelling present. LABS: Labs are reviewed. CBC within normal limits, otherwise Accu-Cheks 125, 215 and 126. ASSESSMENT: 1. Congestive heart failure acute exacerbation with acute on chronic systolic dysfunction, ejection fraction 20-25%, present on admission. 2. Acute non ST-segment elevation myocardial infarction on medical treatment with chest pain. Troponin 0.056. 3. Diabetes mellitus type 2 uncontrolled with hyperglycemia. Hemoglobin A1c 12.3. 4. History of recent left breast, excisional biopsy, small hematoma at the site. 5. History of recent ultrasound core biopsy showing epithelial atypia, left breast. 6. History of stage II left breast cancer previously. 7. Hypertension. 8. Hyperlipidemia. 9. History of breast cancer. 10.History of uterine ablation. 11.Continued ongoing nicotine dependence. 12.Severe protein calorie malnutrition with BMI of 17.9. 13.FULL CODE. RECOMMENDATIONS AND DISCUSSION: In this 73-year-old woman who presented with multiple complex medical issues, we will monitor the patient closely, continue the current medications, management, symptomatic treatment. Heparin has been stopped. We will continue with Lasix and continue to monitor the fluid and electrolytes balance closely. Closely follow with Cardiology. Cardiology is planning cardiac catheterization in the near future but please refer to Dr. Leo's notes and concerns. Overall prognosis guarded because of multiple complex medical issues, especially because of the significant cardiac issues as detailed above. We will continue to monitor. Follow closely with Cardiology regarding cardiac catheterization and further anticoagulation versus and antiplatelets. Prognosis guarded. Further recommendations to follow. MMJESSICAL / IJN: [id number] /
[2019-04-18 23:11] LABS: Glucose,Whole Blood 133 mg/dL (75-99)
[2019-04-19 06:12] LABS: Glucose,Whole Blood 143 mg/dL (75-99)
[2019-04-19] MEDS: PANTOPRAZOLE 40 MG TABLET PO SCH (06:23)
[2019-04-19] MEDS: INSULIN ASPART (NovoLOG) 100 UNIT/ML VIAL SQ SCH ×4 (06:24→20:56)
[2019-04-19 06:29] LABS: Basophils % (A) 0 %; Eosinophils # (A) 0.1 k/uL (0-0.7); Eosinophils % (A) 1 %; HCT 41.3 % (34.0-46.0); HGB 13.7 gm/dL (11.4-16.0); Lymphocytes # (A) 2.2 k/uL (1.0-4.8); Lymphocytes % (A) 36 %; MCH 30.8 pg (25.0-35.0); MCHC 33.1 g/dL (31.0-37.0); Mean Platelet Volume 8.1; Monocytes # (A) 0.6 k/uL (0-1.0); Monocytes % (A) 9 %; Neutrophils # (A) 3.2 k/uL (1.3-7.7); Neutrophils % (A) 51 %; Platelet Count 272 k/uL (150-450); RBC 4.44 m/uL (3.80-5.40); RDW 12.8 % (11.5-15.5); WBC 6.3 k/uL (3.8-10.6)
[2019-04-19 06:39] LABS: African American GFR (CKD) >90 (>60 ml/min/1.73 sqM); Anion Gap 7 mmol/L; Blood Urea Nitrogen 16 mg/dL (7-17); Calcium 9.9 mg/dL (8.4-10.2); Carbon Dioxide 35 mmol/L (22-30); Chloride 97 mmol/L (98-107); Glucose 140 mg/dL (74-99); Non-African American GFR(CKD) 89 (>60 ml/min/1.73 sqM); Potassium 4.7 mmol/L (3.5-5.1); Sodium 139 mmol/L (137-145)
[2019-04-19] MEDS: LISINOPRIL 2.5 MG TAB PO SCH (10:24)
[2019-04-19] MEDS: HEPARIN SODIUM,PORCINE 5,000 UNIT/ML 1 ML VIAL SQ SCH ×2 (10:24→21:10)
[2019-04-19] MEDS: FUROSEMIDE 20 MG TAB PO SCH ×2 (10:24→16:41)
[2019-04-19] MEDS: VICTOZA 18 MG/3 ML SQ SCH (10:24)
[2019-04-19] MEDS: GLIMEPIRIDE 1 MG TAB PO SCH ×2 (10:25→21:10)
[2019-04-19] MEDS: METOPROLOL SUCCINATE (ER) 25 MG TAB.ER.24H PO SCH (10:25)
[2019-04-19] MEDS: LETROZOLE 2.5 MG TAB PO SCH (10:25)
[2019-04-19] MEDS: NATEGLINIDE PO SCH (10:25)
[2019-04-19 11:58] LABS: Glucose,Whole Blood 193 mg/dL (75-99)
--- NOTE | 2019-04-19 12:12 | PN ---
PROGRESS NOTE 73-year-old lady that is admitted to hospital with acute pulmonary edema, has cardiomyopathy with severe LV dysfunction. EXAM: She is comfortable at rest. Vital signs are stable. Chest exam reveals good air entry bilaterally. Heart exam reveals first and second heart sounds. No gallop. Exam of extremities did not reveal any edema. The bleeding at the surgical site on her breast has improved. ASSESSMENT: 1. Acute pulmonary edema. 2. Cardiomyopathy with severe LV dysfunction. 3. Acute non ST-segment elevation myocardial infarction. PLAN: I will continue her on aggressive medical therapy. I will add a statin to what she is on. We do not have a lipid profile on her, we will obtain it. The patient will undergo cardiac catheterization later on once the surgical site has completely because of her concerns with bleeding. MMJESSICAL / IJN: [id number] /
[2019-04-19 16:04] LABS: Glucose,Whole Blood 64 mg/dL (75-99)
[2019-04-19 16:15] LABS: Glucose,Whole Blood 101 mg/dL (75-99)
[2019-04-19 16:52] LABS: Glucose,Whole Blood 155 mg/dL (75-99)
[2019-04-19 20:49] LABS: Glucose,Whole Blood 100 mg/dL (75-99)
--- NOTE | 2019-04-19 22:26 | PN ---
PROGRESS NOTE DATE OF SERVICE: 04/19/2019 This 73-year-old woman was admitted with CHF acute exacerbation, improved significantly. No chest pain. No palpitations. No fever. Cardiology is following the patient closely. The patient also had recent breast surgery. The patient is on subcu heparin at this time. Cardiology is planning to add a statin to the current regimen and cardiac catheterization sometime later because of surgeon's concerns of possibility of bleeding at the surgical site. No chest pain. No palpitations. No fever. PHYSICAL EXAM: Alert and oriented x3. Pulse 103, blood pressure 120/80, respiration 18, temperature 98.6, pulse ox 98% on room air. HEENT: Conjunctivae normal. Oral mucosa moist. NECK: No jugular venous distention. No lymph node enlargement. CARDIOVASCULAR: S1, S2. RESPIRATORY: Diminished breath sounds at the bases. Scattered rhonchi and crackles. ABDOMEN: Soft, nontender. LEGS: No swelling. NERVOUS SYSTEM: No focal deficits. LABS: Accu-Cheks 101, 155. Other labs are noted. ASSESSMENT: 1. Congestive heart failure acute exacerbation with acute on chronic systolic dysfunction, ejection fraction 20-25%, present on admission. 2. Acute non ST-segment elevation myocardial infarction on medical treatment, troponin 0.056 and chest pain. 3. Diabetes mellitus type 2 uncontrolled with hyperglycemia. Hemoglobin A1c 12.3. 4. History of recent left breast excisional biopsy, small hematoma at this site, stable. 5. History of recent ultrasound core biopsy showing epithelial atypia, left breast. 6. History of stage II left breast cancer, previously. 7. Hypertension. 8. Hyperlipidemia. 9. History of breast cancer. 10.History of uterine ablation. 11.Continued ongoing nicotine dependence. 12.Severe protein calorie malnutrition with BMI of 17.9. 13.FULL CODE. RECOMMENDATIONS AND DISCUSSION: In this 73-year-old woman who present with multiple medical problems, we will monitor the patient closely, continue the current medication, continue the symptomatic treatment. Currently the patient is on Lasix 20 mg p.o. b.i.d. We will continue to monitor. Otherwise, subcu heparin and closely follow with Cardiology. Guarded prognosis. Further recommendations to follow. MMODL / IJN: [id number] /
[2019-04-20 06:27] LABS: Glucose,Whole Blood 223 mg/dL (75-99)
[2019-04-20] MEDS: INSULIN ASPART (NovoLOG) 100 UNIT/ML VIAL SQ SCH ×4 (07:07→20:37)
[2019-04-20] MEDS: PANTOPRAZOLE 40 MG TABLET PO SCH (07:07)
[2019-04-20] MEDS: LISINOPRIL 2.5 MG TAB PO SCH ×2 (08:36→20:40)
[2019-04-20] MEDS: HEPARIN SODIUM,PORCINE 5,000 UNIT/ML 1 ML VIAL SQ SCH ×2 (08:36→20:40)
[2019-04-20] MEDS: FUROSEMIDE 20 MG TAB PO SCH ×2 (08:36→15:06)
[2019-04-20] MEDS: GLIMEPIRIDE 1 MG TAB PO SCH ×2 (08:36→21:15)
[2019-04-20] MEDS: LETROZOLE 2.5 MG TAB PO SCH (08:36)
[2019-04-20] MEDS: METOPROLOL SUCCINATE (ER) 25 MG TAB.ER.24H PO SCH ×2 (08:36→20:40)
[2019-04-20] MEDS: NATEGLINIDE PO SCH (08:37)
[2019-04-20] MEDS: VICTOZA 18 MG/3 ML SQ SCH (08:56)
[2019-04-20] MEDS ORDERED: NITROGLYCERIN SL TABS 0.4 MG TAB SUBLINGUAL PRN (11:03)
--- NOTE | 2019-04-20 11:08 | P.PN ---
Subjective Progress Note Date: 04/20/19 This is a pleasant 73-year-old lady with history of recent needle localization of 2 areas in the left bronchus with excisional biopsy. Admitted to the hospital with symptoms of sudden shortness of breath and chest discomfort and was found to have acute pulmonary edema. Recent echocardiogram showing global hypokinesis with an ejection fraction of 20-25%. She did undergo cardiac catheterization little over a year ago which showed mild nonobstructive so coronary artery disease involving the RCA and circumflex coronary artery with preserved LV systolic function. She was initially started on IV heparin and subsequently developed left breast hematoma with drop in hemoglobin. Her hemoglobin has been stable and she continues to have an Bryson wrap around her breasts. On examination, patient overall feels better. Her breathing has improved. She's had no chest discomfort. Objective - Vital Signs Vital signs: Vital Signs Temp 97.7 F 04/20/19 08:00 Pulse 91 04/20/19 08:00 Resp 16 04/20/19 08:00 BP 134/77 04/20/19 08:00 Pulse Ox 94 L 04/20/19 08:00 Intake & Output 04/19/19 04/20/19 04/20/19 18:59 06:59 18:59 Intake Total 840 Output Total 0 Balance 840 0 Weight 41.9 kg Intake: Oral 840 Output: Urine 0 Other: Voiding Method Toilet Toilet # Voids 1 1 - Exam PHYSICAL EXAMINATION: HEENT: Head is atraumatic, normocephalic. Pupils equal, round. Neck is supple. There is no elevated jugular venous pressure. HEART EXAMINATION: Heart sounds regular, S1 and S2 normal. No murmur or gallop heard. CHEST EXAMINATION: Lungs are clear to auscultation and precussion. No chest wall tenderness is noted on palpation or with deep breathing. Bryson wrap in place. ABDOMEN: Soft, nontender. Bowel sounds are heard. No organomegaly noted. EXTREMITIES: 2+ peripheral pulses with no evidence of peripheral edema and no calf tenderness noted. NEUROLOGIC patient is awake, alert and oriented x3. . - Labs CBC & Chem 7: 04/19/19 05:56 04/19/19 05:56 Labs: Abnormal Lab Results - Last 24 Hours (Table) 04/19/19 04/19/19 04/19/19 Range/Units 11:49 15:54 16:13 POC Glucose (mg/dL) 193 H 64 L 101 H (75-99) mg/dL 04/19/19 04/19/19 04/20/19 Range/Units 16:38 20:48 06:26 POC Glucose (mg/dL) 155 H 100 H 223 H (75-99) mg/dL Assessment and Plan Assessment: 1 acute pulmonary edema #2 cardiomyopathy with severe LV systolic dysfunction #3 acute non-ST segment elevation [place] Plan: From cardiology's perspective, we will add low-dose aspirin, all deck tone and Lipitor. Will increase dose of beta serg and BRYSON inhibitor. After discussion with Dr. Leo patient will be scheduled to undergo cardiac catheterization with Dr. Davison tomorrow. FOUNTAIN JERK note has been reviewed, I agree with a documented findings and plan of care. Patient was seen and examined.
--- NOTE | 2019-04-20 11:16 | P.PN ---
Subjective Progress Note Date: 04/20/19 Principal diagnosis: SOB, recent breast lumpectomy The patient is a 73-year-old female who underwent a left breast needle local in excisional biopsy on . The patient presented to the emergency room with shortness of breath and chest discomfort several days later. She was anticoagulated and developed a hematoma at the biopsy site. The patient's hemoglobin is stable at this time at 13.7. The patient denies any pain in her breast. She does have some ecchymosis in the inferior aspect of the left breast extending medially towards the sternum. There is no enlargement of any swelling in the breast or hematoma. Objective - Vital Signs Vital signs: Vital Signs Temp 97.7 F 04/20/19 08:00 Pulse 91 04/20/19 08:00 Resp 16 04/20/19 08:00 BP 134/77 04/20/19 08:00 Pulse Ox 94 L 04/20/19 08:00 Intake & Output 04/19/19 04/20/19 04/20/19 18:59 06:59 18:59 Intake Total 840 Output Total 0 Balance 840 0 Weight 41.9 kg Intake: Oral 840 Output: Urine 0 Other: Voiding Method Toilet Toilet # Voids 1 1 - Constitutional General appearance: Present: no acute distress - EENT ENT: Present: hearing grossly normal - Neck Neck: Present: normal ROM - Respiratory Details: Decreased breath sounds at the bases, no rhonchi or rales Respiratory: bilateral: CTA - Cardiovascular Heart sounds: normal: S1, S2 - Integumentary Integumentary Comment(s): Left breast incision clean and dry No enlargement of any hematoma near biopsy site or an upper outer quadrant area of the breast echymosis inferior breast extending towards the sternum medially - Psychiatric Psychiatric: Present: A&O x's 3, appropriate affect, intact judgment & insight - Labs CBC & Chem 7: 04/19/19 05:56 04/19/19 05:56 Labs: Abnormal Lab Results - Last 24 Hours (Table) 04/19/19 04/19/19 04/19/19 Range/Units 11:49 15:54 16:13 POC Glucose (mg/dL) 193 H 64 L 101 H (75-99) mg/dL 04/19/19 04/19/19 04/20/19 Range/Units 16:38 20:48 06:26 POC Glucose (mg/dL) 155 H 100 H 223 H (75-99) mg/dL Assessment and Plan Assessment: Impression: 1. Personal history of stage II left breast cancer 2. Recent ultrasound core biopsy showing epithelial atypia left breast 3. Recent left breast excisional biopsy, small hematoma at site stable, echymosis of breast 4. Diabetes 5. Nicotine dependence 6. Acute non-ST segment elevation [place] 7. Shortness of breath improved Plan: 1. Possible cardiac catheterization as per cardiology, I have had a discussion with DR. Poon regarding the risks and benefits of cardiac cath in the recent postop patient, the patient underwent a catheterization approximately year ago which did not reveal any blockage, however, at this time it is felt she would benefit from a repeat catheterization to rule out a blockage; will most likely undergo cath tomorrow 2. Heparin DC'd as per cardiology 3. Continue Bryson wrap to provide pressure dressing at biopsy site 4. Serial CBCs have been stable 5. Avoid anticoagulation if possible secondary to recent biopsy, however this must be balanced with her cardiac risk Time with Patient: Less than 30
[2019-04-20 11:18] VITALS: BMI 16.9
[2019-04-20 11:56] LABS: Glucose,Whole Blood 129 mg/dL (75-99)
--- NOTE | 2019-04-20 12:00 | P.PN ---
Subjective Patient resting in bed states she is improved from admission. Denies chest pain at this time. Has seen surgery as breast binder on. Cardiology planning cardiac catheterization tomorrow Objective - Vital Signs Vital signs: Vital Signs Temp 97.7 F 04/20/19 08:00 Pulse 106 H 04/20/19 08:00 Resp 16 04/20/19 08:00 BP 134/77 04/20/19 08:00 Pulse Ox 94 L 04/20/19 08:00 Intake & Output 04/19/19 04/20/19 04/20/19 18:59 06:59 18:59 Intake Total 840 270 Output Total 0 Balance 840 0 270 Weight 41.9 kg 41.9 kg Intake: IV 10 Invasive Line 1 10 Oral 840 260 Output: Urine 0 Other: Voiding Method Toilet Toilet Toilet # Voids 1 1 - Constitutional General appearance: Present: mild distress - EENT Eyes: Present: PERRLA Ears: bilateral: normal - Neck Neck: Present: normal ROM - Respiratory Details: Rales posterior bases Respiratory: bilateral: rales - Cardiovascular Rhythm: regular Abnormal Heart Sounds: Present: systolic murmur - Gastrointestinal General gastrointestinal: Present: soft - Integumentary Integumentary: Present: normal - Neurologic Neurologic: Present: CNII-XII intact - Musculoskeletal Musculoskeletal: Present: generalized weakness - Psychiatric Psychiatric: Present: A&O x's 3, intact judgment & insight - Labs CBC & Chem 7: 04/19/19 05:56 04/19/19 05:56 Labs: Abnormal Lab Results - Last 24 Hours (Table) 04/19/19 04/19/19 04/19/19 Range/Units 11:49 15:54 16:13 POC Glucose (mg/dL) 193 H 64 L 101 H (75-99) mg/dL 04/19/19 04/19/19 04/20/19 Range/Units 16:38 20:48 06:26 POC Glucose (mg/dL) 155 H 100 H 223 H (75-99) mg/dL - Imaging and Cardiology Chest x-ray: report reviewed Assessment and Plan Plan: Assessment Acute on chronic congestive heart failure systolic dysfunction ejection fraction 20-25% cardiomyopathy Acute non-ST's segment elevation myocardial infarction Diabetes type 2 Recent left breast excisional biopsy with hematoma History of stage II left breast cancer Hypertension hyperlipidemia Severe protein calorie malnutrition BMI 17 point Plan Continue consultation with cardiology plan for cardiac cath tomorrow Continue consultation with surgery regarding hematoma breast
[2019-04-20] MEDS: SPIRONOLACTONE 25 MG TAB PO SCH (13:37)
[2019-04-20] MEDS ORDERED: ONDANSETRON 4 MG/2 ML VIAL IVP PRN (14:26)
[2019-04-20] MEDS: ATORVASTATIN 40 MG TAB PO SCH (16:32)
[2019-04-20] MEDS: ASPIRIN 81 MG PO SCH (16:32)
[2019-04-20 16:35] LABS: Glucose,Whole Blood 134 mg/dL (75-99)
[2019-04-20 20:38] LABS: Glucose,Whole Blood 196 mg/dL (75-99)
[2019-04-21] MEDS: ASPIRIN 81 MG PO SCH (05:49)
[2019-04-21] MEDS: PANTOPRAZOLE 40 MG TABLET PO SCH (05:50)
[2019-04-21] MEDS: LISINOPRIL 2.5 MG TAB PO SCH ×2 (05:52→21:09)
[2019-04-21] MEDS: HEPARIN SODIUM,PORCINE 5,000 UNIT/ML 1 ML VIAL SQ SCH ×2 (05:53→21:10)
[2019-04-21] MEDS: METOPROLOL SUCCINATE (ER) 25 MG TAB.ER.24H PO SCH ×2 (05:53→21:09)
[2019-04-21] MEDS ORDERED: ATORVASTATIN 80 MG TAB PO ONE (06:00)
[2019-04-21] MEDS ORDERED: SODIUM CHLORIDE 0.9% 1,000 ML in EMPTY BAG 1 BAG IV ONE (06:00)
[2019-04-21] MEDS ORDERED: ASPIRIN 325 MG TAB PO ONE (06:00)
[2019-04-21 06:34] LABS: Glucose,Whole Blood 161 mg/dL (75-99)
[2019-04-21] MEDS: INSULIN ASPART (NovoLOG) 100 UNIT/ML VIAL SQ SCH ×4 (06:41→21:10)
[2019-04-21 07:02] LABS: HCT 48.5 % (34.0-46.0); HGB 15.3 gm/dL (11.4-16.0); MCH 29.6 pg (25.0-35.0); MCHC 31.4 g/dL (31.0-37.0); MCV 94.1 fL (80.0-100.0); Mean Platelet Volume 8.7; Platelet Count 329 k/uL (150-450); RBC 5.16 m/uL (3.80-5.40); RDW 12.8 % (11.5-15.5); WBC 6.4 k/uL (3.8-10.6)
[2019-04-21 07:25] LABS: Calcium 10.4 mg/dL (8.4-10.2); Potassium 4.2 mmol/L (3.5-5.1)
[2019-04-21] MEDS: FUROSEMIDE 20 MG TAB PO SCH ×2 (08:49→17:07)
[2019-04-21] MEDS: GLIMEPIRIDE 1 MG TAB PO SCH ×2 (08:49→21:09)
[2019-04-21] MEDS: VICTOZA 18 MG/3 ML SQ SCH (08:49)
[2019-04-21] MEDS ORDERED: fentaNYL (PF) 50 MCG/ML 2 ML AMP ONE (09:41)
[2019-04-21] MEDS ORDERED: LIDOCAINE 1% INJ 10MG/ML (20 ML MDV) ONE (09:41)
[2019-04-21] MEDS ORDERED: LIDOCAINE 1% INJ 10MG/ML (20 ML MDV) SQ ONE (09:47)
[2019-04-21] MEDS ORDERED: MIDAZOLAM 2 MG/2 ML VIAL IV ONE (09:48)
[2019-04-21] MEDS ORDERED: IV FLUID CONTINUATION 800 ML IV ONE (09:52)
[2019-04-21] MEDS ORDERED: IOPAMIDOL-370 125ML BTL INJ ONE (09:57)
[2019-04-21 10:47] LABS: Glucose,Whole Blood 128 mg/dL (75-99)
[2019-04-21] MEDS: LETROZOLE 2.5 MG TAB PO SCH (11:08)
[2019-04-21] MEDS: NATEGLINIDE PO SCH (11:09)
[2019-04-21 12:01] LABS: Glucose,Whole Blood 168 mg/dL (75-99)
--- NOTE | 2019-04-21 12:15 | P.PN ---
Subjective Patient resting in bed flat post cardiac catheterization. Not reported yet. Left breast soft ecchymosis noted. No hematoma noted that right groin site Objective - Vital Signs Vital signs: Vital Signs Temp 97.8 F 04/21/19 10:35 Pulse 91 04/21/19 11:20 Resp 16 04/21/19 11:20 BP 111/55 04/21/19 11:20 Pulse Ox 94 L 04/21/19 11:20 Intake & Output 04/20/19 04/21/19 04/21/19 18:59 06:59 18:59 Intake Total 770 205.7 Output Total 600 300 Balance 170 -94.3 Weight 41.9 kg 40.8 kg Intake: IV 50 205.7 Invasive Line 1 10 Invasive Line 2 40 30 Sodium Chloride 0.9% 1, 125.7 000 ml In Empty Bag 1 bag @ 1 ML/KG/HR 41.9 mls/hr IV .[id number] ONE Rx#: [id number] Oral 720 Output: Urine 600 300 Other: Voiding Method Toilet Toilet Toilet # Voids 1 - Constitutional General appearance: Present: mild distress - EENT Eyes: Present: PERRLA Ears: bilateral: normal - Neck Neck: Present: normal ROM - Respiratory Respiratory: bilateral: CTA - Cardiovascular Rhythm: regular Abnormal Heart Sounds: Present: systolic murmur - Gastrointestinal General gastrointestinal: Present: normal bowel sounds, soft - Integumentary Integumentary Comment(s): Ecchymosis to left breast incision clean and dry Integumentary: Present: normal - Neurologic Neurologic: Present: CNII-XII intact - Musculoskeletal Musculoskeletal: Present: generalized weakness - Psychiatric Psychiatric: Present: A&O x's 3, appropriate affect, intact judgment & insight - Labs CBC & Chem 7: 04/21/19 05:43 04/21/19 05:43 Labs: Abnormal Lab Results - Last 24 Hours (Table) 04/20/19 04/20/19 04/21/19 Range/Units 16:34 20:36 05:43 Hct (34.0-46.0) % Chloride 93 L (98-107) mmol/L Carbon Dioxide 38 H (22-30) mmol/L Glucose 191 H (74-99) mg/dL POC Glucose (mg/dL) 134 H 196 H (75-99) mg/dL Calcium 10.4 H (8.4-10.2) mg/dL 04/21/19 04/21/19 04/21/19 Range/Units 05:43 06:32 10:45 Hct 48.5 H (34.0-46.0) % Chloride (98-107) mmol/L Carbon Dioxide (22-30) mmol/L Glucose (74-99) mg/dL POC Glucose (mg/dL) 161 H 128 H (75-99) mg/dL Calcium (8.4-10.2) mg/dL 04/21/19 Range/Units 11:57 Hct (34.0-46.0) % Chloride (98-107) mmol/L Carbon Dioxide (22-30) mmol/L Glucose (74-99) mg/dL POC Glucose (mg/dL) 168 H (75-99) mg/dL Calcium (8.4-10.2) mg/dL Assessment and Plan Plan: Assessment Congestive heart failure acute on chronic systolic dysfunction with ejection fraction of 2025% cardiomyopathy Acute non-ST segment elevation [place] Diabetes type 2 Recent left breast excisional biopsy with hematoma History of stage II left breast cancer Hyper tension Hyperlipidemia Severe protein calorie malnutrition BMI 17.9 Plan Continue consultation with cardiology and surgery
--- NOTE | 2019-04-21 12:32 | CC ---
CARDIAC CATHETERIZATION REPORT INDICATION: Waleska is a 73-year-old lady who was admitted to hospital recently with acute pulmonary edema and non ST-segment elevation [place] and was found to have severe LV systolic dysfunction that was new. Patient underwent breast biopsy and subsequently lumpectomy recently and we were not sure if we were dealing with a takotsubo syndrome or patient had significant progression of her CAD. Patient had a cardiac catheterization a year ago that showed mild nonobstructive CAD. PROCEDURE NOTE: After obtaining informed consent, left heart catheterization, coronary angiogram are performed via the right femoral artery using standard Gloria catheters. Patient tolerated the procedure well without any obvious immediate complications. A femoral angiogram was performed and decision was made for manual hemostasis as her femoral vessels seemed small caliber. Patient received moderate conscious sedation and total sedation time was 15 minutes. She received 25 mcg of fentanyl and 0.5 mg of Versed. FINDINGS: 1. HEMODYNAMICS: Left ventricular end-diastolic pressure is 8 mm. There is no significant gradient across the aortic valve. 2. LEFT VENTRICULOGRAM: Left ventriculogram is not performed. 3. ANGIOGRAPHIC DATA: LEFT MAIN CORONARY ARTERY: Left main coronary artery appears calcified but is free of significant stenosis. Divides into left anterior descending coronary artery and circumflex coronary artery. LAD and its branches appear calcified and show mild diffuse nonobstructive CAD. Circumflex coronary artery is a nondominant vessel that shows a 30%-40% stenosis in its midportion. Right coronary artery is a large dominant vessel that shows a 40% stenosis in its midportion. CONCLUSION: Mild to moderate nonobstructive coronary artery disease involving circumflex coronary artery and right coronary artery. Vessels are calcified and have cholesterol plaque, but no focal obstructive lesions that require angioplasty or bypass surgery. The patient's management is going to be with medical therapy. She will have a repeat echo after optimal therapy in 3 months to reassess her LV function. If she continues to have LV systolic dysfunction, we might consider prophylactic AICD. MMODL / IJN: [id number] /
[2019-04-21 17:00] LABS: Glucose,Whole Blood 300 mg/dL (75-99)
[2019-04-21] MEDS: SPIRONOLACTONE 25 MG TAB PO SCH (17:07)
[2019-04-21 20:23] LABS: Glucose,Whole Blood 246 mg/dL (75-99)
[2019-04-21] MEDS: ACETAMINOPHEN TAB 500 MG TAB PO PRN (23:16)
[2019-04-22 06:14] LABS: Glucose,Whole Blood 174 mg/dL (75-99)
[2019-04-22] MEDS: INSULIN ASPART (NovoLOG) 100 UNIT/ML VIAL SQ SCH (06:27)
[2019-04-22] MEDS: PANTOPRAZOLE 40 MG TABLET PO SCH (06:28)
--- NOTE | 2019-04-22 08:36 | PN ---
PROGRESS NOTE Mrs. Hooker is a 73-year-old female who presented with pulmonary edema with minimal troponin elevation. She has severely impaired left ventricular systolic function prior to the admission. She underwent cardiac catheterization yesterday by Dr. Davison and was found to have no significant obstructive disease. Her findings are consistent with takotsubo syndrome. She is feeling well today. Her breathing is stable. She denied chest pain, no dizziness or palpitation. She denies any nausea. She continues on aspirin once a day, Lipitor 40 mg daily, furosemide 20 mg twice a day, Victoza, Zestril 2.5 mg twice a day, metoprolol succinate 25 mg twice a day. PHYSICAL EXAMINATION: Blood pressure 120/60 with a heart rate in the 60s. LUNGS: Clear. HEART: Regular rate and rhythm. S1, S2. No S3. No rub. ABDOMEN: Soft, nontender. Right groin no hematoma. IMPRESSION: 1. Acute pulmonary edema, resolved with severe cardiomyopathy. 2. Possible takotsubo syndrome. 3. Status post breast surgery. RECOMMENDATION: From the cardiac standpoint, she should be able to be discharged home today and followed as an outpatient with Dr. Davison. MMODL / IJN: [id number] /
[2019-04-22 08:39] VITALS: RESP 18
[2019-04-22] MEDS: LISINOPRIL 2.5 MG TAB PO SCH (08:40)
[2019-04-22] MEDS: GLIMEPIRIDE 1 MG TAB PO SCH (08:40)
[2019-04-22] MEDS: ATORVASTATIN 40 MG TAB PO SCH (08:40)
[2019-04-22] MEDS: ASPIRIN 81 MG PO SCH (08:40)
[2019-04-22] MEDS: HEPARIN SODIUM,PORCINE 5,000 UNIT/ML 1 ML VIAL SQ SCH (08:40)
[2019-04-22] MEDS: SPIRONOLACTONE 25 MG TAB PO SCH (08:40)
[2019-04-22] MEDS: LETROZOLE 2.5 MG TAB PO SCH (08:40)
[2019-04-22] MEDS: NATEGLINIDE PO SCH (08:40)
[2019-04-22] MEDS: VICTOZA 18 MG/3 ML SQ SCH (08:45)
[2019-04-22] MEDS ORDERED: METOPROLOL SUCCINATE (ER) 50 MG TAB.ER.24H PO SCH (09:00)
[2019-04-22] MEDS ORDERED: FUROSEMIDE 20 MG TAB PO SCH (09:00)
[2019-04-22 11:56] LABS: Glucose,Whole Blood 198 mg/dL (75-99)
--- NOTE | 2019-04-22 12:09 | P.DS ---
Providers Date of admission: 04/16/19 08:16 Expected date of discharge: 04/22/19 Attending physician: Bradford Wallis Consults: 04/16/19 08:16 Consult Physician Routine Consulting Provider: [facility] Consult Reason/Comments: Acute pulmonary edema Do you want consulting provider notified?: Yes 04/17/19 18:58 Consult Physician Stat Consulting Provider: Catina Leo Consult Reason/Comments: recent left breast lumpectomy Do you want consulting provider notified?: Already Contacted Primary care physician: Bradford Wallis Hospital Course: 73-year-old female was admitted with diagnosis of congestive heart failure was diagnoses non-ST segment elevated [place] on medical treatment. 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 Patient is to follow-up with family physician Dr. Bradford Wallis and cardiology Assessment Acute on chronic congestive heart failure systolic dysfunction with EF of 20-25% cardiomyopathy takotsuba syndrome Acute non-ST segment elevation myocardial infarction Diabetes type 2 Recent breast biopsy with hematoma History of stage II left breast cancer Hypertension Hyperlipidemia Severe protein calorie malnutrition with BMI of 17.9 Plan Medications adjusted Follow-up with a surgeon Dr. Whitley Quiñonez Cardiology Family physician Dr. Bradford Wallis Plan - Discharge Summary Discharge Rx Participant: No New Discharge Prescriptions: New Spironolactone [Aldactone] 25 mg PO DAILY #30 tab Aspirin 81 mg PO DAILY #90 chew Furosemide [Lasix] 20 mg PO DAILY #30 tab Atorvastatin [Lipitor] 40 mg PO DAILY #30 tab Nitroglycerin Sl Tabs [Nitrostat] 0.4 mg SUBLINGUAL Q5M PRN #25 tab PRN Reason: Chest Pain Metoprolol Succinate (ER) [Toprol XL] 50 mg PO DAILY #30 tab.er.24h Acetaminophen Tab [Tylenol] 500 mg PO Q6HR PRN tab PRN Reason: Fever and/ or Mild Pain Lisinopril [Zestril] 2.5 mg PO BID #60 tab Continue Letrozole 2.5 mg PO DAILY Nateglinide 60 mg PO DAILY Glimepiride [Amaryl] 1 mg PO BID Liraglutide [Victoza 2-Brian] 0.6 mg SQ DAILY Pantoprazole Sodium [Protonix] 40 mg PO DAILY Discharge Medication List Letrozole 2.5 mg PO DAILY 12/04/17 [History] Nateglinide 60 mg PO DAILY 02/25/18 [History] Glimepiride [Amaryl] 1 mg PO BID 02/27/19 [History] Liraglutide [Victoza 2-Brian] 0.6 mg SQ DAILY 04/14/19 [History] Pantoprazole Sodium [Protonix] 40 mg PO DAILY 04/16/19 [History] Acetaminophen Tab [Tylenol] 500 mg PO Q6HR PRN tab 04/22/19 [Rx] Aspirin 81 mg PO DAILY #90 chew 04/22/19 [Rx] Atorvastatin [Lipitor] 40 mg PO DAILY #30 tab 04/22/19 [Rx] Furosemide [Lasix] 20 mg PO DAILY #30 tab 04/22/19 [Rx] Lisinopril [Zestril] 2.5 mg PO BID #60 tab 04/22/19 [Rx] Metoprolol Succinate (ER) [Toprol XL] 50 mg PO DAILY #30 tab.er.24h 04/22/19 [Rx] Nitroglycerin Sl Tabs [Nitrostat] 0.4 mg SUBLINGUAL Q5M PRN #25 tab 04/22/19 [Rx] Spironolactone [Aldactone] 25 mg PO DAILY #30 tab 04/22/19 [Rx] Follow up Appointment(s)/Referral(s): Bradford Wallis MD [Primary Care Provider] - 04/28/19 9:20 am (Saturday) Willian Davison MD [STAFF PHYSICIAN] - 04/28/19 3:30 pm (Saturday) Patient Instructions/Handouts: Heart Failure (DC), Pulmonary Edema (DC) Activity/Diet/Wound Care/Special Instructions: CHF 1. Weigh yourself every morning after you urinate. If you gain 2-3 pounds overnight or 5 pounds in one week, call your primary physician for guidance on your medications. Keep a log of your weights. 2. Avoid salt, or foods with hidden salt. Extra salt makes your heart work harder and traps the fluid in your body for longer. 3. Take all of your medications as directed, especially your water pills. NEVER skip a dose. 4. Elevate your legs when you are not up moving around to help with circulation and prevent swelling. 5. Call your physician if you notice any extra swelling in your legs, ankles, feet or abdomen, if you have a new dry cough, if your shortness of breath worsens with activity or at rest, or if you feel more fatigued. CARDIAC CATH 1. Support your puncture site by applying firm, steady pressure whenever you cough, laugh, sneeze or bear down to have a bowel movement (2-day restriction). 2. Watch for any excessive bruising, active bleeding, a firm knot forming under your skin, extreme tenderness and signs of infection (redness, swelling, fever). 3. Shower daily, do not soak puncture in a tub bath, jacuzzi, pool, castillo etc. for 1 week. This is to prevent risk of infection. 4. Drink plenty of fluids the day of and day after your procedure to flush contrast dye out of your kidneys. 5. Take all medications as directed. Never stop any new medication without your physicians OK. 6. No driving for 2 days after procedure. 7. 10- pound weight lifting restriction for 1 week. 8. Low sodium/low fat diet. 9. Activity limited until follow up appointment with your ultimate hoops scoreboard operator. In case of any problems, please call [facility], Rama Miller @ [phone].
[2019-04-22 12:52] VITALS: BP 107/70; PULSE 82; TEMP 98.4
== END 2019-04-22 13:57 | disposition home or self-care (01) | DRG 280 ==
LOC: EC 06:21 → 2SICU 08:16 → 3SCARD 04-18 04:31
PROVIDERS: ADMIT Family Medicine; ATTEND Family Medicine
PROC: 4A023N7 Measurement of Cardiac Sampling and Pressure, Left Heart, Percutaneous Approach (ICD-10-PCS; principal; 2019-04-21 09:00)
PROC: B2111ZZ Fluoroscopy of Multiple Coronary Arteries using Low Osmolar Contrast (ICD-10-PCS; principal; 2019-04-21 09:00)
DX: I21.4 Non-ST elevation (NSTEMI) myocardial infarction (principal); E43 Unspecified severe protein-calorie malnutrition; I50.23 Acute on chronic systolic (congestive) heart failure; I42.9 Cardiomyopathy, unspecified; I51.81 Takotsubo syndrome; Z68.1 Body mass index [BMI] 19.9 or less, adult; E11.65 Type 2 diabetes mellitus with hyperglycemia; E78.00 Pure hypercholesterolemia, unspecified; E78.5 Hyperlipidemia, unspecified; F17.210 Nicotine dependence, cigarettes, uncomplicated; I25.110 Atherosclerotic heart disease of native coronary artery with unstable angina pectoris; I49.3 Ventricular premature depolarization; K21.9 Gastro-esophageal reflux disease without esophagitis; N64.89 Other specified disorders of breast; Z79.01 Long term (current) use of anticoagulants; Z79.811 Long term (current) use of aromatase inhibitors; Z79.84 Long term (current) use of oral hypoglycemic drugs; Z79.899 Other long term (current) drug therapy; Z80.9 Family history of malignant neoplasm, unspecified; Z85.3 Personal history of malignant neoplasm of breast
CPT/HCPCS: 36415; 71046; 80048; 80053; 83036; 83735; 83880; 84484; 85025; 85027; 85610; 85730; 93005; 93458; 96374; 96375; 99291; 99406

== ENCOUNTER → 2019-05-01 | Outpatient (CLI) | payer MEDICARE, OTHER ==
--- NOTE | 2019-05-05 06:44 | PE ---
EXAMINATION TYPE: PET CT fusion skull to thigh DATE OF EXAM: 05/01/2019 COMPARISON: NONE HISTORY: Left-sided breast cancer diagnosed on ultrasound-guided biopsy January 20, 2019 which so wed atypical cells and subsequent surgical excision 2 sites with IVC April 14, 2019. TECHNIQUE: Following the intravenous administration of 11.55 mCi of F-18 FDG, whole body images are performed from the skull base to the midthigh. Images are reviewed on the computer in the coronal, a xial, and sagittal planes. Reconstructed rotating images are created on independent workstation and reviewed on the computer. A noncontrast CT is performed in conjunction with the PET scan. SCAN: Initial Scan FINDINGS: SKULL BASE AND NECK: No areas of suspicious hypermetabolic uptake. Mild hypermetabolic uptake right mandibular level axial image 32 could reflect dental infection or cavity. CHEST, MEDIASTINUM, AND HILAR REGION: Surgical change to the left breast with surgical clips and some residual soft tissue foci of air axial image 86 and 85 respectively. Extending below and lateral to this there is oval 3.0 cm hyperdense area presumed postsurgical hematoma. There are additional surgic al clips along the Posterior and lateral margin with additional foci of air extending below this with more ill-defined hemorrhage on background dense tissue in the lateral aspect of the left breast. The re is asymmetric left breast mild to moderate skin thickening. No residual areas of suspicious hyperm etabolic uptake is identified. Right breast shows dense tissue without suspicious hypermetabolic upta ke. No suspicious axillary enlarged adenopathy or abnormal hypermetabolic uptake identified. Remainde r thorax shows no suspicious hypermetabolic uptake. ABDOMEN AND PELVIS: No suspicious hypermetabolic uptake. OSSEOUS STRUCTURES: No suspicious hypermetabolic uptake. OTHER CT: Mild/moderate calcified plaque bilateral carotid bulbs greater on the left than right. Cardiomegaly with small pericardial effusion. Moderate calcified plaque in the aortic arch. Patient has very little intra-abdominal fat making evaluation suboptimal of the abdomen and pelvis. N onopacified bowel loops fill significant portion of the abdomen and pelvis. Moderate calcified plaque of the aorta extends into branch vessels. IMPRESSION: No suspicious hypermetabolic uptake to suggest residual or metastatic malignancy.
== END | disposition home or self-care (01) ==
LOC: RADPETMAIN 14:59
PROVIDERS: ATTEND Internal Medicine Hematology & Oncology
DX: C50.812 Malignant neoplasm of overlapping sites of left female breast (principal)
CPT/HCPCS: 78815; A9552

== ENCOUNTER → 2019-05-05 | Outpatient (CLI) | payer MEDICARE, OTHER ==
[2019-05-05 09:06] VITALS: BP 160/70; PULSE 91; RESP 16; TEMP 98.3
--- NOTE | 2019-05-05 10:54 | P.PN ---
Subjective Progress Note Date: 05/05/19 Principal diagnosis: left breast excisional biopsy/positive for invasive ductal carcinoma Waleska is a 73-year-old female who approximately 8 years ago underwent a lumpectomy and radiation therapy for left breast cancer. She had an mammographic abnormality and core biopsy revealed epithelial atypia. She was taken to the operating room and [id number] and excisional biopsy of this area was performed. This did reveal invasive ductal carcinoma but this was complet preston excised. Postprocedure the patient developed shortness of breath and was seen in the emergency room. She was admitted to the hospital for acute on chronic congestive heart failure. 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 hospitalization she did receive anticoagulation with heparin and did develop a small hematoma at the excisional lumpectomy site. The patient was subsequently discharged home. She presents with no complaints at this time. She was seen by Dr. Wood who ordered a PET scan which did not show evidence of metastatic disease. He has suggested that the mastectomy be performed, the patient questions whether she would benefit from bilateral mastectomies. Objective - Vital Signs Vital signs: Vital Signs Temp 98.3 F 05/05/19 09:02 Pulse 91 05/05/19 09:02 Resp 16 05/05/19 09:02 BP 160/70 05/05/19 09:02 Pulse Ox 94 L 05/05/19 09:02 Intake & Output 05/04/19 05/05/19 05/05/19 18:59 06:59 18:59 Weight 44.452 kg - Constitutional General appearance: Present: thin - EENT Eyes: Present: EOMI ENT: Present: hearing grossly normal - Neck Neck: Present: normal ROM - Respiratory Respiratory: bilateral: CTA - Cardiovascular Heart sounds: normal: S1, S2 - Integumentary Integumentary: Present: normal turgor - Musculoskeletal Musculoskeletal: Present: gait normal - Psychiatric Psychiatric: Present: A&O x's 3, appropriate affect, intact judgment & insight - Additional findings Additional findings: left biopsy site clean and dry There was a hematoma in the upper outer quadrant of the breast noted by increased fullness at this site no Evidence of any infection Sutures removed Assessment and Plan Assessment: Impression: 1. Prior left breast cancer approximately 8 years ago treated with lumpectomy and radiation therapy, patient most recently presented with a mammographic abnormality and biopsy revealed epithelial atypia, excisional biopsy revealed recurrent cancer completely excised 2. PET scan no evidence of metastatic disease 3. Ejection fraction 20-25% 4. Consideration of a left mastectomy Plan: 1. Consideration of left mastectomy this would only be performed if cleared by cardiology 2. Resolving hematoma left breast upper outer quadrant 3. Follow-up in May after seen by cardiology Cc: Dr. Bradford Wallis
== END ==
LOC: WWCWWP 08:43
PROVIDERS: ATTEND Surgery
DX: Z53.9 Procedure and treatment not carried out, unspecified reason (principal)

== ENCOUNTER 2019-05-25 08:56 | Inpatient (IN) | payer MEDICARE, OTHER ==
--- NOTE | 2019-05-25 09:47 | ED ---
General Adult HPI <German Paulson J - Last Filed: 05/25/19 12:10> - General Source: patient, family Mode of arrival: ambulatory Limitations: no limitations <Bright Serrano - Last Filed: 05/25/19 12:37> - General Chief complaint: Recheck/Abnormal Lab/Rx Stated complaint: post op-poss incision infection Time Seen by Provider: 05/25/19 09:22 - History of Present Illness Initial comments: Patient is a 73-year-old female presenting to emergency Department with a chief complaint of possible breast infection. The patient states she had a lumpectomy performed by Dr. Wallis over 3 weeks ago. Patient states after she had the stitches removed she developed some swelling in the region, however the surgeon informed her that it was due to blood pooling because the patient was on blood thinners. Patient is currently not on blood thinners. Patient states over the last 2 days she has developed increased tenderness in the region. The last several days her daughter states there is some yellow discharge at the incision site is well. The daughter states that the patient is scheduled to have a complete mastectomy of the left breast on June 21 after cancer cells were detected on biopsy. Patient denies any night sweats fevers or chills. Patient does report increased pain and discomfort. (Bright Serrano) - Related Data Home Medications Medication Instructions Recorded Confirmed Letrozole 2.5 mg PO DAILY 12/04/17 05/05/19 Nateglinide 60 mg PO DAILY 02/25/18 05/05/19 Glimepiride [Amaryl] 1 mg PO BID 02/27/19 05/05/19 Liraglutide [Victoza 2-Brian] 0.6 mg SQ DAILY 04/14/19 05/05/19 Pantoprazole Sodium [Protonix] 40 mg PO DAILY 04/16/19 05/05/19 Previous Rx's Medication Instructions Recorded Acetaminophen Tab [Tylenol] 500 mg PO Q6HR PRN tab 04/22/19 Aspirin 81 mg PO DAILY #90 chew 04/22/19 Atorvastatin [Lipitor] 40 mg PO DAILY #30 tab 04/22/19 Furosemide [Lasix] 20 mg PO DAILY #30 tab 04/22/19 Lisinopril [Zestril] 2.5 mg PO BID #60 tab 12/04/19 Metoprolol Succinate (ER) [Toprol 50 mg PO DAILY #30 tab.er.24h 04/22/19 XL] Nitroglycerin Sl Tabs [Nitrostat] 0.4 mg SUBLINGUAL Q5M PRN #25 tab 04/22/19 Spironolactone [Aldactone] 25 mg PO DAILY #30 tab 04/22/19 Allergies Allergy/AdvReac Type Severity Reaction Status Date / Time No Known Allergies Allergy Verified 05/25/19 09:16 Review of Systems ROS Other: All systems not noted in ROS Statement are negative. <German Paulson - Last Filed: 05/25/19 12:10> ROS Other: All systems not noted in ROS Statement are negative. <Bright Serrano - Last Filed: 05/25/19 12:37> ROS Statement: Those systems with pertinent positive or pertinent negative responses have been documented in the HPI. Past Medical History Past Medical History: Cancer, Diabetes Mellitus, GERD/Reflux, Hyperlipidemia, Hypertension Additional Past Medical History / Comment(s): LEFT Breast cancer @ 65 years old History of Any Multi-Drug Resistant Organisms: None Reported Past Surgical History: Breast Surgery, Uterine Ablation Additional Past Surgical History / Comment(s): lumpectomy @ 65 left breast. chemo/radiation. LASER SURGERY ON BOTH EYES FOR GLAUCOMA. left lumpectomy 04/14/19 Past Anesthesia/Blood Transfusion Reactions: No Reported Reaction Past Psychological History: No Psychological Hx Reported Smoking Status: Light tobacco smoker Past Alcohol Use History: Rare Past Drug Use History: None Reported - Past Family History Mother Family Medical History: No Reported History Brother(s) Family Medical History: Cancer <Bright Serrano - Last Filed: 05/25/19 12:37> General Exam Limitations: no limitations General appearance: alert, in no apparent distress Head exam: Present: atraumatic, normocephalic, normal inspection Eye exam: Present: normal appearance, PERRL, EOMI Pupils: Present: normal accommodation ENT exam: Present: normal exam, normal oropharynx, mucous membranes moist, TM's normal bilaterally, normal external ear exam Neck exam: Present: normal inspection, full ROM Respiratory exam: Present: normal lung sounds bilaterally, other (Erythema and yellow discharge at the incision site. Tenderness and surrounding induration.) Cardiovascular Exam: Present: regular rate, normal rhythm, normal heart sounds Extremities exam: Present: normal inspection, full ROM Back exam: Present: normal inspection, full ROM Neurological exam: Present: alert Psychiatric exam: Present: normal affect, normal mood Skin exam: Present: warm, dry, intact, normal color <Bright Serrano - Last Filed: 05/25/19 12:37> Course Vital Signs 05/25/19 05/25/19 05/25/19 09:09 09:15 10:15 Temperature 98.0 F Pulse Rate 110 H 96 92 Respiratory 20 18 18 Rate Blood Pressure 140/73 134/80 130/78 O2 Sat by Pulse 95 96 96 Oximetry 05/25/19 12:15 Temperature Pulse Rate 93 Respiratory 18 Rate Blood Pressure 154/96 O2 Sat by Pulse 96 Oximetry Medical Decision Making - Lab Data Result diagrams: 05/25/19 09:48 05/25/19 09:48 <German Paulson - Last Filed: 05/25/19 12:10> - Lab Data Result diagrams: 05/25/19 09:48 05/25/19 09:48 <Bright Serrano - Last Filed: 05/25/19 12:37> - Medical Decision Making The patient was seen and examined. All diagnostics were reviewed. The case is discussed with Dr. Bimal Quiñonez and she recommends admission to medicine with herself to consult. Antibiotics are initiated. The case will be discussed with Dr. Wallis for admission. The case is also discussed with the PA and I agree with findings as documented. (German Paulson) Patient is a 73-year-old female with history of diabetes presenting to the emergency room with a chief complaint of a postoperative breast abscess. Eyes and patient has an area of induration along with surrounding erythema at the incision site. Mild necrosis in the region as well. Small amounts of yellow/white discharge noted as well. Patient is quite tender to region. Patient denies any fevers. CBC and CMP are unremarkable. No concern for sepsis at this time. Patient is scheduled to have a mastectomy of the breast in 2 weeks. Ultrasound of the breast shows multiple complex fluid pockets and varying sizes. Dr. Bimal Quiñonez was consulted and she wants the patient and negative. Patient started antibiotics, analgesia and fluids. Dr. Wallis and Dr. Wood also consulted. Dr. Paulson also examined the patient and is in agreement with the treatment plan. (Bright Serrano) - Lab Data Lab Results 05/25/19 05/25/19 Range/Units 09:48 09:48 WBC 7.8 (3.8-10.6) k/uL RBC 4.46 (3.80-5.40) m/uL Hgb 13.6 (11.4-16.0) gm/dL Hct 40.9 (34.0-46.0) % MCV 91.7 (80.0-100.0) fL MCH 30.5 (25.0-35.0) pg MCHC 33.3 (31.0-37.0) g/dL RDW 12.3 (11.5-15.5) % Plt Count 316 (150-450) k/uL Neutrophils % 64 % Lymphocytes % 23 % Monocytes % 7 % Eosinophils % 1 % Basophils % 3 % Neutrophils # 5.0 (1.3-7.7) k/uL Lymphocytes # 1.8 (1.0-4.8) k/uL Monocytes # 0.6 (0-1.0) k/uL Eosinophils # 0.1 (0-0.7) k/uL Basophils # 0.2 (0-0.2) k/uL Sodium 137 (137-145) mmol/L Potassium 4.2 (3.5-5.1) mmol/L Chloride 97 L (98-107) mmol/L Carbon Dioxide 33 H (22-30) mmol/L Anion Gap 7 mmol/L BUN 11 (7-17) mg/dL Creatinine 0.54 (0.52-1.04) mg/dL Est GFR (CKD-EPI)AfAm >90 (>60 ml/min/1.73 sqM) Est GFR (CKD-EPI)NonAf >90 (>60 ml/min/1.73 sqM) Glucose 322 H (74-99) mg/dL Calcium 9.6 (8.4-10.2) mg/dL Total Bilirubin 0.6 (0.2-1.3) mg/dL AST 19 (14-36) U/L ALT 16 (4-34) U/L Alkaline Phosphatase 110 (38-126) U/L Total Protein 7.0 (6.3-8.2) g/dL Albumin 3.9 (3.5-5.0) g/dL Disposition <German Paulson - Last Filed: 05/25/19 12:10> Is patient prescribed a controlled substance at d/c from ED?: No Time of Disposition: 12:37 <Bright Serrano - Last Filed: 05/25/19 12:37> Clinical Impression: Left breast abscess Disposition: ADMITTED IP TO THIS HOSP Condition: Stable Instructions (If sedation given, give patient instructions): Abscess (ED) Additional Instructions: Patient will be admitted Referrals: Bradford Wallis MD [Primary Care Provider] - 1-2 days
[2019-05-25] MEDS ORDERED: Acetaminophen-Codeine 300-30mg TAB PO STA (09:56)
[2019-05-25 10:14] LABS: Basophils # (A) 0.2 k/uL (0-0.2); Basophils % (A) 3 %; Eosinophils # (A) 0.1 k/uL (0-0.7); Eosinophils % (A) 1 %; HCT 40.9 % (34.0-46.0); HGB 13.6 gm/dL (11.4-16.0); Lymphocytes # (A) 1.8 k/uL (1.0-4.8); Lymphocytes % (A) 23 %; MCH 30.5 pg (25.0-35.0); MCHC 33.3 g/dL (31.0-37.0); MCV 91.7 fL (80.0-100.0); Mean Platelet Volume 9.4; Monocytes # (A) 0.6 k/uL (0-1.0); Monocytes % (A) 7 %; Neutrophils % (A) 64 %; Platelet Count 316 k/uL (150-450); RBC 4.46 m/uL (3.80-5.40); RDW 12.3 % (11.5-15.5); WBC 7.8 k/uL (3.8-10.6)
[2019-05-25 10:23] LABS: ALT 16 U/L (4-34); AST 19 U/L (14-36); African American GFR (CKD) >90 (>60 ml/min/1.73 sqM); Albumin 3.9 g/dL (3.5-5.0); Alkaline Phosphatase 110 U/L (38-126); Anion Gap 7 mmol/L; Blood Urea Nitrogen 11 mg/dL (7-17); Calcium 9.6 mg/dL (8.4-10.2); Carbon Dioxide 33 mmol/L (22-30); Chloride 97 mmol/L (98-107); Glucose 322 mg/dL (74-99); Non-African American GFR(CKD) >90 (>60 ml/min/1.73 sqM); Potassium 4.2 mmol/L (3.5-5.1); Sodium 137 mmol/L (137-145); Total Bilirubin 0.6 mg/dL (0.2-1.3)
--- NOTE | 2019-05-25 12:01 | USB ---
Reason for exam: clinical finding. History: Patient is postmenopausal and has history of breast cancer at age 73. Malignant US breast localization LT of the right breast, April 14, 2019. Benign US biopsy breast VAD LT of the left breast, January 20, 2019. Lumpectomy of the left breast, 2011. Chemotherapy, 2011. Radiation therapy, 2011. Taking antineoplastic for 7 years beginning at age 65. US Breast LT Left complete breast ultrasound includes all four quadrants, the retroareolar region and axilla. Finding demonstrates confluent edema and phlegmonous change throughout the left breast. Multiple complex fluid pockets at 1 o'clock, 4 o'clock and 9 o'clock. The largest at 1 o'clock measuring 2.8 x 2.8 x 3.6cm. Surgical consultation for debridement. ASSESSMENT: Known biopsy proven malignancy, BI-RAD 6 RECOMMENDATION: Surgical consultation of the left breast. (debridement)
[2019-05-25] MEDS ORDERED: ALPRAZolam 0.25 MG TAB PO PRN (12:37)
[2019-05-25] MEDS ORDERED: MORPHINE SULFATE 4 MG/ML SYRINGE IV PRN (12:37)
[2019-05-25] MEDS ORDERED: NALOXONE 0.4 MG/ML 1 ML VIAL IV PRN (12:37)
[2019-05-25] MEDS ORDERED: AMPICILLIN-SULBACTAM 1.5 GM in SODIUM CHLORIDE 0.9% 50 ML IVPB STA (12:44)
[2019-05-25] MEDS ORDERED: VANCOMYCIN IV PER PHARMACY 1 EACH MISC MISCELLANE PRN (12:45)
[2019-05-25] MEDS ORDERED: VANCOMYCIN 750 MG in SODIUM CHLORIDE 0.9% 250 ML IVPB ONE (13:00)
[2019-05-25] MEDS: SODIUM CHLORIDE 0.9% 1,000 ML IV SCH (13:41)
[2019-05-25] MEDS ORDERED: NITROGLYCERIN SL TABS 0.4 MG TAB SUBLINGUAL PRN (18:01)
--- NOTE | 2019-05-25 18:08 | P.HPIM ---
History of Present Illness 73-year-old female who presented the emergency room with complaints of increased pain and drainage from left breast for 24 hours. Patient is postop for breast biopsy. Planning mastectomy June [address] Bimal Quiñonez Review of Systems Breasts: left: pain, skin changes (Drainage) Past Medical History Past Medical History: Cancer, Diabetes Mellitus, GERD/Reflux, Hyperlipidemia, Hypertension Additional Past Medical History / Comment(s): LEFT Breast cancer @ 65 years old History of Any Multi-Drug Resistant Organisms: None Reported Past Surgical History: Breast Surgery, Uterine Ablation Additional Past Surgical History / Comment(s): lumpectomy @ 65 left breast. chemo/radiation. LASER SURGERY ON BOTH EYES FOR GLAUCOMA. left lumpectomy 04/14/19 Past Anesthesia/Blood Transfusion Reactions: No Reported Reaction Past Psychological History: No Psychological Hx Reported Smoking Status: Light tobacco smoker Past Alcohol Use History: Rare Past Drug Use History: None Reported - Past Family History Mother Family Medical History: No Reported History Brother(s) Family Medical History: Cancer Medications and Allergies Home Medications Medication Instructions Recorded Confirmed Type Letrozole 2.5 mg PO DAILY 12/04/17 05/25/19 History Nateglinide 60 mg PO DAILY 02/25/18 05/25/19 History Glimepiride [Amaryl] 1 mg PO BID 02/27/19 05/25/19 History Liraglutide [Victoza 2-Brian] 0.6 mg SQ DAILY 04/14/19 05/25/19 History Pantoprazole Sodium [Protonix] 40 mg PO DAILY 04/16/19 05/25/19 History Acetaminophen Tab [Tylenol] 500 mg PO Q6HR PRN tab 04/22/19 05/25/19 Rx Aspirin 81 mg PO DAILY #90 chew 04/22/19 05/25/19 Rx Nitroglycerin Sl Tabs [Nitrostat] 0.4 mg SUBLINGUAL Q5M PRN #25 tab 04/22/19 05/25/19 Rx Allergies Allergy/AdvReac Type Severity Reaction Status Date / Time No Known Allergies Allergy Verified 05/25/19 09:16 Physical Exam Vitals: Vital Signs Temp Pulse Resp BP Pulse Ox 05/25/19 14:33 92 16 134/72 94 L 05/25/19 12:15 93 18 154/96 96 05/25/19 10:15 92 18 130/78 96 05/25/19 09:15 96 18 134/80 96 05/25/19 09:09 98.0 F 110 H 20 140/73 95 Intake and Output 05/25/19 05/25/19 05/25/19 06:59 14:59 22:59 Other: Weight 42.774 kg - Constitutional General appearance: mild distress - EENT Eyes: PERRLA Ears: bilateral: normal - Neck Neck: normal ROM - Respiratory Respiratory: bilateral: CTA - Cardiovascular Rhythm: regular - Gastrointestinal General gastrointestinal: soft - Integumentary Left breast firm to touch draining erythemic Integumentary: cellulitis - Neurologic Neurologic: CNII-XII intact - Musculoskeletal Musculoskeletal: gait normal - Psychiatric Psychiatric: A&O x's 3, appropriate affect, intact judgment & insight Results CBC & Chem 7: 05/25/19 09:48 05/25/19 09:48 Labs: Abnormal Lab Results - Last 24 Hours (Table) 05/25/19 Range/Units 09:48 Chloride 97 L (98-107) mmol/L Carbon Dioxide 33 H (22-30) mmol/L Glucose 322 H (74-99) mg/dL Microbiology - Last 24 Hours (Table) 05/25/19 09:48 Wound Culture - Preliminary Breast - Left Assessment and Plan Plan: Assessment Left breast abscess postoperative Diabetes type 2 GERD hyperlipidemia Hypertension Plan Consultation with oncology surgery Dr. Bimal Quiñonez On vancomycin
[2019-05-25] MEDS: Acetaminophen-Codeine 300-30mg TAB PO PRN (19:30)
--- NOTE | 2019-05-25 19:51 | P.GSHP ---
History of Present Illness H&P Date: 05/25/19 Chief Complaint: Patient drainage from left breast The patient is a 73-year-old female seen in consultation for Dr. Bradford Wallis who who presented to the emergency department with a complaint of increased pain and some drainage from the left breast increased over the past 24 hours. Of significance is the fact that the patient approximately 8 years ago underwent a lumpectomy and radiation therapy in [place] for that she states is a stage II left breast cancer. She underwent a left breast biopsy here in January 2019 which revealed atypia. She subsequently on [id number] underwent a needle local excisional biopsy of this area in the operating room. 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 This procedure approximately 48 hours she developed some shortness of breath and was admitted to the hospital. At that time she was anticoagulated and developed a hematoma. She underwent a cardiac cath which did not reveal anything necessitating stenting. The anticoagulation was stopped. She has been doing well at home until recently when she developed increased drainage from this area. Her blood cell count on admission was 7.8. An ultrasound was performed of the area which revealed some fluid pockets at the 1:00 4:00 and 9:00 area of the breast. The largest measured 2.8 x 3.6 cm it was at the 1 o'clock position. The patient has not had any purulent drainage. Past surgical history: Left breast lumpectomy and sentinel node biopsy approximately 8 years ago Left breast excisional biopsy 04-14-19 Medical history: 1. Low ejection fraction 2. Diabetes Social history: Smoke: 5 cigarettes per day Alcohol: Negative Drugs: Negative - Constitutional Constitutional: Denies chills, Denies fever - EENT Eyes: denies blurred vision, denies pain Ears: deny: decreased hearing, tinnitus Ears, nose, mouth and throat: Denies headache, Denies sore throat - Breasts Breasts: bilateral: as per HPI - Cardiovascular Comment: Low ejection fraction - Respiratory Comment: Smoker - Gastrointestinal Comment: history of ulcers - Genitourinary (Female) Genitourinary: Reports as per HPI, Denies dysuria, Denies hematuria - Menstruation Menstruation: Reports postmenopausal - Musculoskeletal Musculoskeletal: Reports muscle cramps - Integumentary Comment: Left breast at prior lumpectomy site with some drainage, excoriation of the lateral aspect - Neurological Neurological: Denies numbness, Denies weakness - Psychiatric Psychiatric: Denies anxiety, Denies depression - Endocrine Comment: Diabetes - Hematologic/Lymphatic Comment: baby aspirin - Allergic/Immunologic Allergic/Immunologic: Reports as per HPI Past Medical History Past Medical History: Cancer, Diabetes Mellitus, GERD/Reflux, Hyperlipidemia, Hypertension Additional Past Medical History / Comment(s): LEFT Breast cancer @ 65 years old History of Any Multi-Drug Resistant Organisms: None Reported Past Surgical History: Breast Surgery, Uterine Ablation Additional Past Surgical History / Comment(s): lumpectomy @ 65 left breast. chemo/radiation. LASER SURGERY ON BOTH EYES FOR GLAUCOMA. left lumpectomy 04/14/19 Past Anesthesia/Blood Transfusion Reactions: No Reported Reaction Past Psychological History: No Psychological Hx Reported Smoking Status: Light tobacco smoker Past Alcohol Use History: Rare Past Drug Use History: None Reported - Past Family History Mother Family Medical History: No Reported History Brother(s) Family Medical History: Cancer Medications and Allergies Home Medications Medication Instructions Recorded Confirmed Type Letrozole 2.5 mg PO DAILY 12/04/17 05/25/19 History Nateglinide 60 mg PO DAILY 02/25/18 05/25/19 History Glimepiride [Amaryl] 1 mg PO BID 02/27/19 05/25/19 History Liraglutide [Victoza 2-Brian] 0.6 mg SQ DAILY 04/14/19 05/25/19 History Pantoprazole Sodium [Protonix] 40 mg PO DAILY 04/16/19 05/25/19 History Acetaminophen Tab [Tylenol] 500 mg PO Q6HR PRN tab 04/22/19 05/25/19 Rx Aspirin 81 mg PO DAILY #90 chew 04/22/19 05/25/19 Rx Nitroglycerin Sl Tabs [Nitrostat] 0.4 mg SUBLINGUAL Q5M PRN #25 tab 04/22/19 05/25/19 Rx Allergies Allergy/AdvReac Type Severity Reaction Status Date / Time No Known Allergies Allergy Verified 05/25/19 09:16 Surgical - Exam Vital Signs Temp Pulse Resp BP Pulse Ox 98.0 F 110 H 20 140/73 95 05/25/19 09:09 05/25/19 09:09 05/25/19 09:09 05/25/19 09:09 05/25/19 09:09 BMI 20.4 - General no distress - Eyes normal ocular movement - ENT no hearing loss, no congestion - Neck no masses, trachea midline, no lymphadectomy, no venous distension - Respiratory Decreased breath sounds at the bases - Cardiovascular Rhythm: regular Heart Sounds: normal: S1, S2 - Abdomen Abdomen: soft, non tender, no guarding, no rigid, no rebound - Integumentary Left breast near incision site mild erythema and necrosis of the lateral aspect of the incision - Neurologic no disoriented, no combative - Musculoskeletal Reclining on stretcher - Psychiatric oriented to time, oriented to person, oriented to place, speech is normal, memory intact Left breast: Left breast is swollen in the upper outer quadrant aspect near the area of the incision bilateral residual hematoma there is some necrosis of the lateral a spect of the incision with some serous drainage no evidence of purulence Results Ultrasound results reviewed, some fluid pockets at the 14 and 9 o'clock position, the largest is 2.8 x 3.6 cm at the 1 o'clock position - Labs 05/25/19 09:48 05/25/19 09:48 Abnormal Lab Results - Last 24 Hours (Table) 05/25/19 Range/Units 09:48 Chloride 97 L (98-107) mmol/L Carbon Dioxide 33 H (22-30) mmol/L Glucose 322 H (74-99) mg/dL Microbiology - Last 24 Hours (Table) 05/25/19 09:48 Wound Culture - Preliminary Breast - Left Diabetes panel 05/25/19 Range/Units 09:48 Sodium 137 (137-145) mmol/L Potassium 4.2 (3.5-5.1) mmol/L Chloride 97 L (98-107) mmol/L Carbon Dioxide 33 H (22-30) mmol/L BUN 11 (7-17) mg/dL Creatinine 0.54 (0.52-1.04) mg/dL Glucose 322 H (74-99) mg/dL Calcium 9.6 (8.4-10.2) mg/dL AST 19 (14-36) U/L ALT 16 (4-34) U/L Alkaline Phosphatase 110 (38-126) U/L Total Protein 7.0 (6.3-8.2) g/dL Albumin 3.9 (3.5-5.0) g/dL Calcium panel 05/25/19 Range/Units 09:48 Calcium 9.6 (8.4-10.2) mg/dL Albumin 3.9 (3.5-5.0) g/dL Pituitary panel 05/25/19 Range/Units 09:48 Sodium 137 (137-145) mmol/L Potassium 4.2 (3.5-5.1) mmol/L Chloride 97 L (98-107) mmol/L Carbon Dioxide 33 H (22-30) mmol/L BUN 11 (7-17) mg/dL Creatinine 0.54 (0.52-1.04) mg/dL Glucose 322 H (74-99) mg/dL Calcium 9.6 (8.4-10.2) mg/dL Adrenal panel 05/25/19 Range/Units 09:48 Sodium 137 (137-145) mmol/L Potassium 4.2 (3.5-5.1) mmol/L Chloride 97 L (98-107) mmol/L Carbon Dioxide 33 H (22-30) mmol/L BUN 11 (7-17) mg/dL Creatinine 0.54 (0.52-1.04) mg/dL Glucose 322 H (74-99) mg/dL Calcium 9.6 (8.4-10.2) mg/dL Total Bilirubin 0.6 (0.2-1.3) mg/dL AST 19 (14-36) U/L ALT 16 (4-34) U/L Alkaline Phosphatase 110 (38-126) U/L Total Protein 7.0 (6.3-8.2) g/dL Albumin 3.9 (3.5-5.0) g/dL Assessment and Plan Assessment: Impression: 1. Patient status post left breast lumpectomy on [id number]. Presents now with some necrosis of the lateral aspect of the incision, ultrasound findings as noted with a 2.8-2.6 cm fluid collection at the 1 o'clock position of the left breast, and probable resolving hematoma 2. Patient admitted after the biopsy on 04-14-19 with shortness of breath and was started on anticoagulation at that time after which she developed a hematoma this has been resolving 3. White blood cell count 7.8 4. Low ejection fraction 5. Diabetes/recent glucose 322 6. Patient had discussed case with medical oncologist and was considering a mastectomy in the near future Plan: 1. Patient started on vancomycin 2. Review ultrasound with radiologist 3. Medical clearance to consider evacuation of possible resolving hematoma Time: Approximately 30 minutes, greater than 50% of time spent in counseling and planning
--- NOTE | 2019-05-25 20:01 | P.CONS ---
History of Present Illness - Reason for Consult Consult date: 05/25/19 Breast cancer Requesting physician: Bright Serrano - Chief Complaint breast drainge - History of Present Illness Mrs. Hooker is a very pleasant female patient of Dr. Wood with a history of breast cancer. Diagnosed in the [place], [place] when she presented with abnormal mammogram on the left in May 2009, biopsy positive for invasive ductal carcinoma, she had a lumpectomy 07/14/2009 sentinel nodes negative. She was treated adjuvantly with 4 cycles of dose dense AC followed by dose dense Taxol with Herceptin. She had radiation and then started on AI in the fall of 2009. She continued Herceptin for 1 year. She had been on observation since 2010, no evidence of recurrence. She moved to [place] and was referred to Dr. Wood by Dr. Leo to establish care. She followed up for a while but, due to family events she was not seen with consistency until 10/02. She remained on AI, JIMBO. Routine mammogram in 01/05 concerning for abnormality in the 2 o'clock region, US confirmed a solid 6 x 8 x 8 mm solid lesion,biopsy 01/20/19 revealed atypical epithelial cells, with excisional biopsy recommended after consultation at the [facility]. Pt had a lumpectomy on 04/14/19. This revealed a < 2 mm, grade 3 invasive ductal carcinoma, with focal 1 mm DCIS, and negative margins, ER 91- 100% positive and LA and Her2/esha negative. She had an admission on 04/16/19 for chest pain, and SOB. She was noted to have had a minor AZ, had cardiac cath, with no need for intervention, medical management only. Recent PET scan was negative for metastatic disease, pt started on AI, plans for mastectomy next month with SLNB. Patient's daughter noted some changes at the biopsy site just after [place], she continued to monitor, noted that the area was draining more purulent fluid so she brought her to the hospital. Patient denied fevers, chills, nausea, vomiting, mild pain in the left lateral breast area, no abdominal pain or cramping, acute changes in bowel or bladder habits, no other c/o. Review of Systems 14 point review of systems is negative except as stated in HPI Past Medical History Past Medical History: Cancer, Diabetes Mellitus, GERD/Reflux, Hyperlipidemia, Hypertension Additional Past Medical History / Comment(s): LEFT Breast cancer @ 65 years old History of Any Multi-Drug Resistant Organisms: None Reported Past Surgical History: Breast Surgery, Uterine Ablation Additional Past Surgical History / Comment(s): lumpectomy @ 65 left breast. chemo/radiation. LASER SURGERY ON BOTH EYES FOR GLAUCOMA. left lumpectomy 04/14/19 Past Anesthesia/Blood Transfusion Reactions: No Reported Reaction Past Psychological History: No Psychological Hx Reported Smoking Status: Light tobacco smoker Past Alcohol Use History: Rare Past Drug Use History: None Reported - Past Family History Mother Family Medical History: No Reported History Brother(s) Family Medical History: Cancer Medications and Allergies Home Medications Medication Instructions Recorded Confirmed Type Letrozole 2.5 mg PO DAILY 12/04/17 05/25/19 History Nateglinide 60 mg PO DAILY 02/25/18 05/25/19 History Glimepiride [Amaryl] 1 mg PO BID 02/27/19 05/25/19 History Liraglutide [Victoza 2-Brian] 0.6 mg SQ DAILY 04/14/19 05/25/19 History Pantoprazole Sodium [Protonix] 40 mg PO DAILY 04/16/19 05/25/19 History Acetaminophen Tab [Tylenol] 500 mg PO Q6HR PRN tab 04/22/19 05/25/19 Rx Aspirin 81 mg PO DAILY #90 chew 04/22/19 05/25/19 Rx Nitroglycerin Sl Tabs [Nitrostat] 0.4 mg SUBLINGUAL Q5M PRN #25 tab 04/22/19 05/25/19 Rx Allergies Allergy/AdvReac Type Severity Reaction Status Date / Time No Known Allergies Allergy Verified 05/25/19 09:16 Physical Exam Vitals: Vital Signs Temp Pulse Resp BP Pulse Ox 05/25/19 19:00 101 H 16 140/80 96 05/25/19 14:33 92 16 134/72 94 L 05/25/19 12:15 93 18 154/96 96 05/25/19 10:15 92 18 130/78 96 05/25/19 09:15 96 18 134/80 96 05/25/19 09:09 98.0 F 110 H 20 140/73 95 Intake and Output 05/25/19 05/25/19 05/25/19 06:59 14:59 22:59 Other: Weight 42.774 kg - Constitutional petite General appearance: cooperative, thin - EENT Eyes: anicteric sclerae, EOMI ENT: hearing grossly normal, normal oropharynx - Neck Neck: no lymphadenopathy - Respiratory Respiratory: bilateral: CTA - Cardiovascular Rhythm: regular Heart sounds: normal: S1, S2 Abnormal Heart Sounds: no systolic murmur, no diastolic murmur, no rub, no S3 Gallop, no S4 Gallop, no click, no other leg Peripheral Edema: bilateral: None - Gastrointestinal General gastrointestinal: normal bowel sounds, soft - Integumentary Left lateral breast, approx 3oclock, 2.5-3cm scab with white drainage around it, area of firmness is about 5-6 cm, mild redness - Neurologic Neurologic: CNII-XII intact - Musculoskeletal Musculoskeletal: strength equal bilaterally - Psychiatric Psychiatric: A&O x's 3, appropriate affect, intact judgment & insight Results CBC & Chem 7: 05/25/19 09:48 05/25/19 09:48 Labs: Abnormal Lab Results - Last 24 Hours (Table) 05/25/19 Range/Units 09:48 Chloride 97 L (98-107) mmol/L Carbon Dioxide 33 H (22-30) mmol/L Glucose 322 H (74-99) mg/dL Microbiology - Last 24 Hours (Table) 05/25/19 09:48 Wound Culture - Preliminary Breast - Left Comments: Ultrasound of the breast report reviewed Assessment and Plan Plan: Abscess: Patient is going to be seen by the surgeon. Surgeon will evaluate the situation and treat accordingly. Left breast cancer: < 2 mm, grade 3, invasive ductal carcinoma, 1 mm DCIS, ER positive and LA and Her2/esha negative. PET scan was negative for metastatic disease. Plan is to stay on aromatase inhibitor. Patient was also going to be having a mastectomy next month.
[2019-05-26] MEDS: VANCOMYCIN 750 MG in SODIUM CHLORIDE 0.9% 250 ML IVPB SCH ×3 (00:26→17:09)
[2019-05-26] MEDS: GLIMEPIRIDE 1 MG TAB PO SCH ×3 (00:39→20:05)
[2019-05-26] MEDS: SODIUM CHLORIDE 0.9% 1,000 ML IV SCH ×2 (02:30→13:52)
[2019-05-26] MEDS: Acetaminophen-Codeine 300-30mg TAB PO PRN ×3 (05:31→17:27)
[2019-05-26] MEDS ORDERED: NON FORMULARY DRUG (Liraglutide [Victoza 2-Pak] 0.6 MG) SQ SCH (09:00)
[2019-05-26] MEDS ORDERED: LETROZOLE 2.5 MG TAB PO SCH (09:00)
--- NOTE | 2019-05-26 09:57 | XR ---
EXAMINATION TYPE: XR chest 2V DATE OF EXAM: 05/26/2019 COMPARISON: 04/16/2019 TECHNIQUE: PA and lateral views submitted. HISTORY: Preop FINDINGS: Coarsened interstitium suggestive of chronic interstitial lung disease. Hyperinflation suggests COPD and there is bibasilar infiltrate and small atherosclerotic change aorta. Degenerative changes spine. Diffuse osteopenia. IMPRESSION: 1. Bibasilar infiltrate and small effusion. 2. COPD with superimposed chronic interstitial lung disease. Interstitial pneumonitis or mild venous congestion not excluded.
[2019-05-26 10:21] LABS: Glucose,Whole Blood 233 mg/dL (75-99)
[2019-05-26] MEDS: PANTOPRAZOLE 40 MG TABLET PO SCH (10:52)
--- NOTE | 2019-05-26 11:36 | P.CRDCN ---
History of Present Illness History of present illness: HISTORY OF PRESENTING ILLNESS This is a pleasant 73-year-old female past medical history significant for breast cancer status post radiation and lumpectomy with recurrence in 2019 status post lumpectomy awaiting mastectomy, mild nonobstructive coronary artery disease, nonischemic cardiomyopathy, hypertension, diabetes mellitus, chronic nicotine dependence, dyslipidemia and gastroesophageal reflux disease. She follows in the office with Dr. Davison. We have been asked to see in consultation for preoperative evaluation. She underwent a lumpectomy with Dr. Bimal Quiñonez in March 2019. Shortly thereafter she came to the hospital and was treated for initially a presumed non-ST elevated myocardial infarction with pulmonary edema. She underwent cardiac catheterization that revealed calcified LAD, 30-40% lesion in the mid circumflex and a 40% lesion in the mid RCA. She then develope d a hematoma at the site of her previous lumpectomy. She came to the hospital with family yesterday secondary to increased warmth and redness at the site. She was found to have an abscess that Dr. Bimal Quiñonez drained at the bedside. She did see Dr. Davison in the office in April 2019 and was given preoperative clearance for mastectomy. She is seen and examined sitting up in the bed in no acute distress. She denies symptoms of chest discomfort, shortness of breath, dizziness or palpitations. DIAGNOSTICS No EKG on admission. Chest xray bibasilar infiltrate with a small effusion, COPD superimposed chronic interstitial lung disease.. Laboratory reviewed, CBC unremarkable, sodium 137, potassium 4.2, creatinine 0.54. Current cardiac medications include lisinopril 2.5 mg BID, toprol 50 mg daily, aspirin 81 mg daily, atorvastatin 40 mg daily and aldactone 25 mg daily. Most recent echocardiogram obtained March 2019 reveals severely impaired LV systolic function with ejection fraction 20-25%. REVIEW OF SYSTEMS At the time of my exam: CONSTITUTIONAL: Denies fever or chills. CARDIOVASCULAR: Denies chest pain, shortness of breath, orthopnea, PND or palpitations. RESPIRATORY: Denies cough. GASTROINTESTINAL: Denies abdominal pain, diarrhea, constipation, nausea or vomiting. MUSCULOSKELETAL: Denies myalgias. NEUROLOGIC: Denies numbness, tingling or weakness. ENDOCRINE: Denies fatigue, weight change, polydipsia or polyurina. GENITOURINARY: Denies burning, hematuria or urgency with micturation. HEMATOLOGIC: Denies history of anemia or bleeding. PHYSICAL EXAMINATION Blood pressure 153/62 heart rate 94 afebrile and maintaining oxygen saturation on room air. CONSTITUTIONAL: No apparent distress. HEENT: Head is normocephalic. Pupils are equal, round. Sclerae anicteric. Mucous membranes of the mouth are moist. No JVD. No carotid bruit. CHEST EXAMINATION: Lungs are clear to auscultation. No chest wall tenderness is noted on palpation or with deep breathing. Diminished bilaterally. HEART EXAMINATION: Regular rate and rhythm. S1, S2 heard. No murmurs, gallops or rub. ABDOMEN: Soft, nontender. Positive bowel sounds. EXTREMITIES: 2+ peripheral pulses, no lower extremity edema and no calf tenderness. NEUROLOGIC EXAMINATION: Patient is awake, alert and oriented x3. ASSESSMENT Left breast abscess Breast cancer Non-ischemic cardiomyopathy Mild non-obstructive coronary artery disease Hypertension Dyslipidemia Diabetes mellitus Chronic nicotine dependence PLAN Clinically euvolemic and free of symptoms of angina. Obtain baseline EKG. There is no acute contraindication to undergo surgical intervention at this time. Recommend cautious fluid administration and optimal blood pressure control. She is moderate-high risk candidate given her multiple co-morbid conditions. We will check the cost of entresto to begin today. Resume aspirin, aldactone, toprol and atorvastatin as previously ordered. Thank you kindly for this consultation. Nurse Practitioner note has been reviewed, I agree with a documented findings and plan of care. Patient was seen and examined. Past Medical History Past Medical History: Cancer, Diabetes Mellitus, GERD/Reflux, Hyperlipidemia, Hypertension Additional Past Medical History / Comment(s): LEFT Breast cancer @ 65 years old History of Any Multi-Drug Resistant Organisms: None Reported Past Surgical History: Breast Surgery, Uterine Ablation Additional Past Surgical History / Comment(s): lumpectomy @ 65 left breast. chemo/radiation. LASER SURGERY ON BOTH EYES FOR GLAUCOMA. left lumpectomy 04/14/19 Past Anesthesia/Blood Transfusion Reactions: No Reported Reaction Past Psychological History: No Psychological Hx Reported Smoking Status: Light tobacco smoker Past Alcohol Use History: Rare Past Drug Use History: None Reported - Past Family History Mother Family Medical History: No Reported History Brother(s) Family Medical History: Cancer Medications and Allergies Home Medications Medication Instructions Recorded Confirmed Type Letrozole 2.5 mg PO DAILY 12/04/17 05/25/19 History Nateglinide 60 mg PO DAILY 02/25/18 05/25/19 History Glimepiride [Amaryl] 1 mg PO BID 02/27/19 05/25/19 History Liraglutide [Victoza 2-Brian] 0.6 mg SQ DAILY 04/14/19 05/25/19 History Pantoprazole Sodium [Protonix] 40 mg PO DAILY 04/16/19 05/25/19 History Acetaminophen Tab [Tylenol] 500 mg PO Q6HR PRN tab 04/22/19 05/25/19 Rx Aspirin 81 mg PO DAILY #90 chew 04/22/19 05/25/19 Rx Nitroglycerin Sl Tabs [Nitrostat] 0.4 mg SUBLINGUAL Q5M PRN #25 tab 04/22/19 05/25/19 Rx Allergies Allergy/AdvReac Type Severity Reaction Status Date / Time No Known Allergies Allergy Verified 05/25/19 09:16 Physical Exam Vitals: Vital Signs Temp Pulse Resp BP Pulse Ox 05/26/19 05:00 99.8 F H 94 16 153/62 95 05/26/19 03:00 92 16 125/66 95 05/25/19 23:30 100 16 120/65 95 05/25/19 19:00 101 H 16 140/80 96 05/25/19 14:33 92 16 134/72 94 L 05/25/19 12:15 93 18 154/96 96 Results 05/25/19 09:48 05/25/19 09:48 Current Medications Generic Name Dose Route Start Last Admin Trade Name Freq PRN Reason Stop Dose Admin Acetaminophen/Codeine Phosphate 1 each 05/25/19 12:37 05/26/19 05:31 Tylenol #3 PO 1 each Q4HR PRN Administration Moderate Pain Alprazolam 0.25 mg 05/25/19 12:37 Xanax PO Q6HR PRN Anxiety Glimepiride 1 mg 05/25/19 21:00 05/26/19 10:53 Amaryl PO 1 mg BID JEAN Administration Sodium Chloride 1,000 mls @ 75 mls/hr 05/25/19 12:45 05/26/19 02:30 Saline 0.9% IV 75 mls/hr .[id number] JEAN Administration Vancomycin HCl 750 mg/ Sodium 250 mls @ 125 mls/hr 05/25/19 22:00 05/26/19 00:30 Chloride IVPB 125 mls/hr Q16H JEAN Administration Letrozole 2.5 mg 05/26/19 09:00 Femara PO DAILY JEAN Morphine Sulfate 4 mg 05/25/19 12:37 05/26/19 00:37 Morphine Sulfate (Inj) IV 4 mg Q4HR PRN Administration Severe Pain Naloxone HCl 0.2 mg 05/25/19 12:37 Narcan IV Q2M PRN Opioid Reversal Nitroglycerin 0.4 mg 05/25/19 18:01 Nitrostat SUBLINGUAL Q5M PRN Chest Pain Non-Formulary Medication 0.6 mg 05/26/19 09:00 Liraglutide [Victoza 2-Brian] SQ DAILY JEAN Non-Formulary Medication 60 mg 05/26/19 09:00 Nateglinide [Nateglinide] PO DAILY JEAN Pantoprazole Sodium 40 mg 05/26/19 07:30 05/26/19 10:52 Protonix PO 40 mg [id number] JEAN Administration 05/25/19 09:48 05/25/19 09:48
[2019-05-26] MEDS: LETROZOLE 2.5 MG TAB PO SCH (13:56)
--- NOTE | 2019-05-26 13:57 | P.PN ---
Subjective Progress Note Date: 05/26/19 Principal diagnosis: Left breast cancer/hematoma The patient is a 73-year-old white female who is status post left breast lumpectomy in March 2019. Postprocedure she develops shortness of breath was treated in the hospital with anticoagulation and developed a hematoma at the lumpectomy site. She presents to the emergency department with some drainage at the incisional site. She was afebrile and her white count was normal. The patient is not complaining of any pain. She has been seen by cardiology and cleared for surgical drainage if necessary. Objective - Vital Signs Vital signs: Vital Signs Temp 98.8 F 05/26/19 12:26 Pulse 107 H 05/26/19 12:26 Resp 18 05/26/19 12:26 BP 153/84 05/26/19 12:26 Pulse Ox 96 05/26/19 12:26 Intake & Output 05/25/19 05/26/19 05/26/19 18:59 06:59 18:59 Weight 42.774 kg - Exam BMI 20.4 - Constitutional General appearance: Present: thin - EENT Eyes: Present: EOMI ENT: Present: hearing grossly normal - Neck Neck: Present: normal ROM - Respiratory Respiratory: bilateral: diminished (Decreased breath sounds at bases) - Cardiovascular Rhythm: regular Heart sounds: normal: S1, S2 - Musculoskeletal Musculoskeletal Comment(s): Recumbent on stretcher - Psychiatric Psychiatric: Present: A&O x's 3, appropriate affect, intact judgment & insight - Additional findings Additional findings: Left breast: The area of the incision has an area of necrosis at the lateral aspect. Evaluation reveals this to be draining and using blunt probing the area was opened and evacuation of fluid and resolving hematoma was performed. The wound was well irrigated, there was no evidence of any active bleeding. This does not appear to be infected. - Labs CBC & Chem 7: 05/25/19 09:48 05/25/19 09:48 Labs: Abnormal Lab Results - Last 24 Hours (Table) 05/26/19 Range/Units 10:20 POC Glucose (mg/dL) 233 H (75-99) mg/dL Microbiology - Last 24 Hours (Table) 05/25/19 09:48 Gram Stain - Preliminary Breast - Left Wound Culture - Preliminary Gram Neg Bacilli Group D Enterococcus Assessment and Plan Assessment: Impression: 1. Patient status post left breast lumpectomy on [id number]. Presents now with some necrosis of the lateral aspect of the incision, ultrasound findings as not ed with a 2.8-2.6 cm fluid collection at the 1 o'clock position of the left breast, and probable resolving hematoma/probing of the area resulted in evacuation of resolving hematoma 2. Patient admitted after the biopsy on 04-14-19 with shortness of breath and was started on anticoagulation at that time after which she developed a hematoma this has been resolving 3. White blood cell count 7.8 4. Low ejection fraction 5. Diabetes/recent glucose 322 6. Patient had discussed case with medical oncologist and was considering a mastectomy in the near future 7. Patient seen by cardiology who have cleared the patient for operative intervention. 8. Patient's case was presented at tumor board and secondary to the fact that she developed a recurrent/new cancer in the left breast despite she had been on anti-hormonal therapy she is recommended to undergo mastectomy of the left breast Plan: 1. Patient started on vancomycin 2. Patient received cardiac clearance for surgery 3. At this time we have requested infectious disease consultation, the patient is to be scheduled for a mastectomy however I do not want to do a mastectomy if she has an active infection in the breast. Depending on infectious disease recommendation we'll most likely proceed to a mastectomy in the near future Time: Approximately 25 minutes, greater than 50% of time spent in counseling and planning Time with Patient: Less than 30
[2019-05-26 17:17] LABS: Glucose,Whole Blood 284 mg/dL (75-99)
--- NOTE | 2019-05-26 18:01 | P.PN ---
Subjective Patient evaluated by cardiology cleared for surgical procedure. Evaluated by surgeon awaiting results of culture plan is for left mastectomy Objective - Vital Signs Vital signs: Vital Signs Temp 97.0 F L 05/26/19 15:50 Pulse 99 05/26/19 15:50 Resp 16 05/26/19 15:50 BP 126/72 05/26/19 15:50 Pulse Ox 99 05/26/19 15:50 Intake & Output 05/25/19 05/26/19 05/26/19 18:59 06:59 18:59 Weight 42.774 kg 42.774 kg - Constitutional General appearance: Present: mild distress - EENT Eyes: Present: PERRLA Ears: bilateral: normal - Neck Neck: Present: normal ROM - Respiratory Respiratory: bilateral: CTA - Cardiovascular Rhythm: regular - Gastrointestinal General gastrointestinal: Present: soft - Integumentary Integumentary Comment(s): Dressing to left breast - Neurologic Neurologic: Present: CNII-XII intact - Musculoskeletal Musculoskeletal: Present: gait normal - Psychiatric Psychiatric: Present: A&O x's 3, appropriate affect, intact judgment & insight - Labs CBC & Chem 7: 05/25/19 09:48 05/25/19 09:48 Labs: Abnormal Lab Results - Last 24 Hours (Table) 05/26/19 05/26/19 Range/Units 10:20 17:15 POC Glucose (mg/dL) 233 H 284 H (75-99) mg/dL Microbiology - Last 24 Hours (Table) 05/25/19 09:48 Gram Stain - Preliminary Breast - Left Wound Culture - Preliminary Gram Neg Bacilli Group D Enterococcus Assessment and Plan Plan: Assessment Left breast biopsy postoperative biopsy Breast cancer Cardiomyopathy Diabetes type 2 GERD Hyperlipidemia Hypertension Plan Continues on vancomycin Awaiting clearance from infectious disease Plan for left mastectomy
[2019-05-26 19:35] LABS: Glucose,Whole Blood 277 mg/dL (75-99)
[2019-05-26] MEDS: INSULIN ASPART (NovoLOG) 100 UNIT/ML VIAL SQ SCH (20:05)
[2019-05-26] MEDS: SACUBITRIL/VALSARTAN 24 MG-26 MG TABLET PO SCH (20:05)
[2019-05-26] MEDS ORDERED: LISINOPRIL 2.5 MG TAB PO SCH (21:00)
--- NOTE | 2019-05-26 22:46 | P.CONS ---
History of Present Illness - Reason for Consult Consult date: 05/26/19 left breast abscess Requesting physician: Catina Leo - Chief Complaint left breast pain swelling and draiange x 2 days - History of Present Illness Patient is a 73-year-old female who is status post lumpectomy done by Dr. Wallis on 3 weeks ago patient mentioning of the stitch was removed she did develop swelling in the region which was initially thought to be related to hematoma as the patient was recently started on a blood thinner for the last 2 days before presented to the hospital to be developed increasing swelling pain and tenderness to the left breast region patient described the pain to be dull aching at times sharp intensity, 7-8 of 10 and no radiation patient also noticed some yellow drainage from incision site with the symptoms and the patient presented to [facility] ER the patient on arrival to the ER did have low-grade fever of 99.8 patient white count has been normal patient did have a breast ultrasound completed which shows evidence of multiple complex fluid pocket at 1:00 4:00 and 9 o'clock position largest was at 1:00 patient subsequently has been evaluated by the surgeon and did have a drainage of hematoma culture has been obtained which subsequently grew gram-negative bacilli and group B enterococcus that prompted this infectious consultation for further management of antibiotic therapy patient is currently on empiric vancomycin Review of Systems CONSTITUTIONAL: Positive for weakness along with the chills and low-grade fever. EYES: No complaint. ENT: No complaint. RESPIRATORY: No complaint. CARDIOVASCULAR: No complaint. GENITOURINARY: No complaint. GASTROINTESTINAL: No complaint. MUSCULOSKELETAL: No complaint. INTEGUMENTARY: As per history of present illness. PSYCHOLOGIC: No complaint. ENDOCRINE: No complaint. NEUROLOGIC: No complaint. . Past Medical History Past Medical History: Cancer, Diabetes Mellitus, GERD/Reflux, Hyperlipidemia, Hypertension Additional Past Medical History / Comment(s): LEFT Breast cancer @ 65 years old History of Any Multi-Drug Resistant Organisms: None Reported Past Surgical History: Breast Surgery, Uterine Ablation Additional Past Surgical History / Comment(s): lumpectomy @ 65 left breast. chemo/radiation. LASER SURGERY ON BOTH EYES FOR GLAUCOMA. left lumpectomy 04/14/19 Past Anesthesia/Blood Transfusion Reactions: No Reported Reaction Past Psychological History: No Psychological Hx Reported Smoking Status: Light tobacco smoker Past Alcohol Use History: Rare Additional Past Alcohol Use History / Comment(s): Has been smoking for 48-49 yrs, 10 cigarettes per day. Has cut back to 1 or 2 a day Past Drug Use History: None Reported - Past Family History Mother Family Medical History: No Reported History Brother(s) Family Medical History: Cancer Medications and Allergies Home Medications Medication Instructions Recorded Confirmed Type Letrozole 2.5 mg PO DAILY 12/04/17 05/25/19 History Nateglinide 60 mg PO DAILY 02/25/18 05/25/19 History Glimepiride [Amaryl] 1 mg PO BID 02/27/19 05/25/19 History Liraglutide [Victoza 2-Brian] 0.6 mg SQ DAILY 04/14/19 05/25/19 History Pantoprazole Sodium [Protonix] 40 mg PO DAILY 04/16/19 05/25/19 History Acetaminophen Tab [Tylenol] 500 mg PO Q6HR PRN tab 04/22/19 05/25/19 Rx Aspirin 81 mg PO DAILY #90 chew 04/22/19 05/25/19 Rx Nitroglycerin Sl Tabs [Nitrostat] 0.4 mg SUBLINGUAL Q5M PRN #25 tab 04/22/19 05/25/19 Rx Sacubitril/Valsartan [Entresto 24 1 each PO BID #60 tablet 05/26/19 Rx mg-26 mg Tablet] Allergies Allergy/AdvReac Type Severity Reaction Status Date / Time No Known Allergies Allergy Verified 05/25/19 09:16 Physical Exam Vitals: Vital Signs Temp Pulse Pulse Resp BP BP Pulse Ox 05/26/19 20:20 97.7 F 123 H 20 187/99 95 05/26/19 15:50 97.0 F L 99 16 126/72 99 05/26/19 12:26 98.8 F 107 H 18 153/84 96 05/26/19 12:15 130 H 22 88 L 05/26/19 11:39 99.4 F 110 H 18 155/85 94 L 05/26/19 05:00 99.8 F H 94 16 153/62 95 05/26/19 03:00 92 16 125/66 95 05/25/19 23:30 100 16 120/65 95 Intake and Output 05/26/19 05/26/19 05/26/19 06:59 14:59 22:59 Other: Weight 42.774 kg GENERAL DESCRIPTION: Elderly female lying in bed, no distress. No tachypnea or accessory muscle of respiration use. HEENT: Shows Pallor , no scleral icterus. Oral mucous membrane is dry. NECK: Trachea central, no thyromegaly. LUNGS: Unlabored breathing. Clear to auscultation anteriorly. No wheeze or crackle. HEART: S1, S2, regular rate and rhythm. ABDOMEN: Soft, no tenderness , guarding or rigidity EXTREMITIES: No edema of feet. SKIN: No rash, no masses palpable. Left breast did have deep wound after surgical evacuation of the hematoma there is no surrounding swelling redness or any foul-smelling drainage NEUROLOGICAL: The patient is awake, alert, oriented x3, mood and affect normal. Results CBC & Chem 7: 05/25/19 09:48 05/25/19 09:48 Labs: Abnormal Lab Results - Last 24 Hours (Table) 05/26/19 05/26/19 05/26/19 Range/Units 10:20 17:15 19:24 POC Glucose (mg/dL) 233 H 284 H 277 H (75-99) mg/dL Microbiology - Last 24 Hours (Table) 05/25/19 09:48 Gram Stain - Preliminary Breast - Left Wound Culture - Preliminary Gram Neg Bacilli Group D Enterococcus Assessment and Plan Assessment: patient with a left breast infected hematoma status post drainage cultures are now showing group B enterococcus and gram-negative bacilli in this patient currently with no evidence of any sepsis with no significant fever or elevated white count (1) Left breast abscess Current Visit: Yes Status: Acute Code(s): N61.1 - ABSCESS OF THE BREAST AND NIPPLE SNOMED Code(s): 68909938 Plan: 1-vancomycin pharmacy to dose with a target trough of 15 while watching her kidney function and Vanco trough closely. 2-cefepime 2 g every 12 call for the gram-negative 3-local wound care with wet-to-dry dressing changes daily 4-blood cultures admission evidence of any bacteremia the patient currently does not seem bacteremic 5-recommend aggressive treatment of this infected hematoma before proceeding with left mastectomy on June 22 We will follow on clinical condition and cultures to further adjust medication if needed Thank you for this consultation we will follow the patient along with you Time with Patient: Greater than 30
[2019-05-27] MEDS: CEFEPIME 2 GM in SODIUM CHLORIDE 0.9% 100 ML IVPB SCH ×2 (00:39→12:31)
[2019-05-27 03:02] LABS: Glucose,Whole Blood 180 mg/dL (75-99)
[2019-05-27] MEDS: SODIUM CHLORIDE 0.9% 1,000 ML IV SCH ×2 (06:18→20:31)
[2019-05-27] MEDS: VANCOMYCIN 750 MG in SODIUM CHLORIDE 0.9% 250 ML IVPB SCH ×2 (06:18→22:48)
[2019-05-27 07:27] LABS: Glucose,Whole Blood 120 mg/dL (75-99)
[2019-05-27] MEDS: INSULIN ASPART (NovoLOG) 100 UNIT/ML VIAL SQ SCH ×4 (08:04→20:29)
[2019-05-27] MEDS: ATORVASTATIN 40 MG TAB PO SCH (08:05)
[2019-05-27] MEDS: METOPROLOL SUCCINATE (ER) 50 MG TAB.ER.24H PO SCH (08:05)
[2019-05-27] MEDS: PANTOPRAZOLE 40 MG TABLET PO SCH (08:05)
[2019-05-27] MEDS: SPIRONOLACTONE 25 MG TAB PO SCH (08:05)
[2019-05-27] MEDS: ASPIRIN 81 MG PO SCH (08:05)
[2019-05-27] MEDS: SACUBITRIL/VALSARTAN 24 MG-26 MG TABLET PO SCH ×2 (08:06→20:29)
[2019-05-27] MEDS: LETROZOLE 2.5 MG TAB PO SCH (08:07)
[2019-05-27] MEDS: GLIMEPIRIDE 1 MG TAB PO SCH ×2 (08:08→20:29)
[2019-05-27 09:24] LABS: Basophils # (A) 0.2 k/uL (0-0.2); Basophils % (A) 3 %; Eosinophils # (A) 0.1 k/uL (0-0.7); Eosinophils % (A) 2 %; HCT 40.5 % (34.0-46.0); HGB 12.8 gm/dL (11.4-16.0); Lymphocytes # (A) 1.4 k/uL (1.0-4.8); Lymphocytes % (A) 24 %; MCH 29.6 pg (25.0-35.0); MCHC 31.8 g/dL (31.0-37.0); Mean Platelet Volume 8.9; Monocytes # (A) 0.5 k/uL (0-1.0); Monocytes % (A) 8 %; Neutrophils # (A) 3.5 k/uL (1.3-7.7); Neutrophils % (A) 60 %; Platelet Count 258 k/uL (150-450); RBC 4.35 m/uL (3.80-5.40); RDW 12.3 % (11.5-15.5); WBC 5.9 k/uL (3.8-10.6)
[2019-05-27 09:43] LABS: African American GFR (CKD) >90 (>60 ml/min/1.73 sqM); Anion Gap 5 mmol/L; Blood Urea Nitrogen 8 mg/dL (7-17); C Reactive Protein 29.8 mg/L (<10.0); Calcium 8.2 mg/dL (8.4-10.2); Carbon Dioxide 28 mmol/L (22-30); Chloride 105 mmol/L (98-107); Glucose 148 mg/dL (74-99); Non-African American GFR(CKD) >90 (>60 ml/min/1.73 sqM); Sodium 138 mmol/L (137-145)
[2019-05-27 11:44] LABS: Glucose,Whole Blood 162 mg/dL (75-99)
--- NOTE | 2019-05-27 13:00 | P.PN ---
Subjective Progress Note Date: 05/27/19 Principal diagnosis: Left breast cancer/hematoma The patient is a 73-year-old white female who is status post left breast lumpectomy in March 2019. Postprocedure she develops shortness of breath was treated in the hospital with anticoagulation and developed a hematoma at the lumpectomy site. She presented to the emergency department with some drainage at the incisional site. She was afebrile and her white count was normal. The patient had some necrosis at the lateral aspect of the wound this was to proceed with evacuation of hematoma at bedside. Cultures revealed gram-negative organisms as well as strep B. She is presently on vancomycin and cefepime. She is seen and followed by infectious disease. The patient is not complaining of any pain. She has been seen by cardiology. Objective - Vital Signs Vital signs: Vital Signs Temp 97.9 F 05/27/19 05:50 Pulse 90 05/27/19 05:50 Resp 12 05/27/19 05:50 BP 119/66 05/27/19 05:50 Pulse Ox 99 05/27/19 05:50 Intake & Output 05/26/19 05/27/19 05/27/19 18:59 06:59 18:59 Weight 42.774 kg Other: # Voids 1 # Bowel Movements 0 # Emeses 0 - Exam BMI 20.4 - Constitutional General appearance: Present: thin - EENT Eyes: Present: EOMI ENT: Present: hearing grossly normal - Respiratory Details: Decreased breath sounds at bases - Cardiovascular Rhythm: regular Heart sounds: normal: S1, S2 - Integumentary Integumentary Comment(s): Left breast: Decreased erythema, decreased edema in the lateral aspect of the breast, packing is in place to be changed by nurse - Psychiatric Psychiatric: Present: A&O x's 3, appropriate affect, intact judgment & insight - Labs CBC & Chem 7: 05/27/19 08:54 05/27/19 08:54 Labs: Abnormal Lab Results - Last 24 Hours (Table) 05/26/19 05/26/19 05/27/19 Range/Units 17:15 19:24 02:59 Creatinine (0.52-1.04) mg/dL Glucose (74-99) mg/dL POC Glucose (mg/dL) 284 H 277 H 180 H (75-99) mg/dL Calcium (8.4-10.2) mg/dL C-Reactive Protein (<10.0) mg/L 05/27/19 05/27/19 05/27/19 Range/Units 07:25 08:54 11:41 Creatinine 0.40 L (0.52-1.04) mg/dL Glucose 148 H (74-99) mg/dL POC Glucose (mg/dL) 120 H 162 H (75-99) mg/dL Calcium 8.2 L (8.4-10.2) mg/dL C-Reactive Protein 29.8 H (<10.0) mg/L Microbiology - Last 24 Hours (Table) 05/25/19 09:48 Gram Stain - Preliminary Breast - Left Wound Culture - Preliminary Escherichia coli Enterococcus faecalis Assessment and Plan Assessment: Impression: 1. Patient status post left breast lumpectomy on [id number]. Presented with some necrosis of the lateral aspect of the incision, ultrasound findings as noted with a 2.8-2.6 cm fluid collection at the 1 o'clock position of the left breast, and probable resolving hematoma/probing of the area resulted in evacuation of resolving hematoma 2. Patient admitted after the biopsy on 04-14-19 with shortness of breath and was started on anticoagulation at that time after which she developed a hematoma this has been resolving 3. White blood cell count 7.8 4. Low ejection fraction 5. Diabetes 6. Patient had discussed case with medical oncologist and was considering a mastectomy in the near future 7. Patient seen by cardiology who have cleared the patient for operative intervention. 8. Patient's case was presented at tumor board and secondary to the fact that she developed a recurrent/new cancer in the left breast despite she had been on anti-hormonal therapy she is recommended to undergo mastectomy of the left breast 9. Patient seen by infectious disease also started on cefepime Plan: 1. Patient on vancomycin/cefepime 2. Patient received cardiac clearance for surgery 3. Discharge patient home as per infectious disease 4. Mastectomy in the near future after patient cleared by infectious disease Time with Patient: Less than 30
--- NOTE | 2019-05-27 14:13 | P.PN ---
Subjective Case discussed with surgeon Dr. Bimal Quiñonez surgeon requesting home healthcare and infectious disease Objective - Vital Signs Vital signs: Vital Signs Temp 97.9 F 05/27/19 05:50 Pulse 90 05/27/19 05:50 Resp 12 05/27/19 05:50 BP 119/66 05/27/19 05:50 Pulse Ox 99 05/27/19 05:50 Intake & Output 05/26/19 05/27/19 05/27/19 18:59 06:59 18:59 Weight 42.774 kg Other: # Voids 1 2 # Bowel Movements 0 # Emeses 0 - Constitutional General appearance: Present: mild distress - EENT Eyes: Present: PERRLA Ears: bilateral: normal - Neck Neck: Present: normal ROM - Respiratory Respiratory: bilateral: CTA - Cardiovascular Rhythm: regular - Gastrointestinal General gastrointestinal: Present: soft - Integumentary Integumentary Comment(s): Left breast dressing intact - Neurologic Neurologic: Present: CNII-XII intact - Musculoskeletal Musculoskeletal: Present: gait normal - Psychiatric Psychiatric: Present: A&O x's 3, appropriate affect, intact judgment & insight - Labs CBC & Chem 7: 05/27/19 08:54 05/27/19 08:54 Labs: Abnormal Lab Results - Last 24 Hours (Table) 05/26/19 05/26/19 05/27/19 Range/Units 17:15 19:24 02:59 Creatinine (0.52-1.04) mg/dL Glucose (74-99) mg/dL POC Glucose (mg/dL) 284 H 277 H 180 H (75-99) mg/dL Calcium (8.4-10.2) mg/dL C-Reactive Protein (<10.0) mg/L 05/27/19 05/27/19 05/27/19 Range/Units 07:25 08:54 11:41 Creatinine 0.40 L (0.52-1.04) mg/dL Glucose 148 H (74-99) mg/dL POC Glucose (mg/dL) 120 H 162 H (75-99) mg/dL Calcium 8.2 L (8.4-10.2) mg/dL C-Reactive Protein 29.8 H (<10.0) mg/L Microbiology - Last 24 Hours (Table) 05/25/19 09:48 Gram Stain - Preliminary Breast - Left Wound Culture - Preliminary Escherichia coli Enterococcus faecalis Assessment and Plan Plan: Assessment Left breast abscess postop biopsy Recurrent breast cancer Cardiomyopathy Diabetes type 2 GERD Hyperlipidemia Hypertension Plan Home health care for dressing changes Recommendations from infectious disease Continue consultation with oncology
--- NOTE | 2019-05-27 14:52 | P.PN ---
Subjective HISTORY OF PRESENTING ILLNESS This is a pleasant 73-year-old female past medical history significant for breast cancer status post radiation and lumpectomy with recurrence in 2019 status post lumpectomy awaiting mastectomy, mild nonobstructive coronary artery disease, nonischemic cardiomyopathy, hypertension, diabetes mellitus, chronic nicotine dependence, dyslipidemia and gastroesophageal reflux disease. She follows in the office with Dr. Davison. She is seen and examined laying flat resting comfortably in bed in no acute distress. She denies chest pain, shortness of breath, dizziness or palpitations. Blood pressure 156/83 heart rate 96 afebrile and maintaining oxygen saturation on room air. Laboratory data reviewed, CBC unremarkable, sodium 138, potassium 4.0, creatinine 0.4, C- reactive protein 29.8. Currently maintained on aspirin 81 mg daily, atorvastatin 40 mg daily, Toprol 50 mg daily, Aldactone 25 mg daily and entresto 24/26 mg BID. No plans for surgical intervention at this time given the underlying infection. Per the family plans for mastectomy for June 22. PHYSICAL EXAMINATION CONSTITUTIONAL: No apparent distress. HEENT: Head is normocephalic. Pupils are equal, round. Sclerae anicteric. Mucous membranes of the mouth are moist. No JVD. No carotid bruit. CHEST EXAMINATION: Lungs are clear to auscultation. No chest wall tenderness is noted on palpation or with deep breathing. Diminished bilaterally. HEART EXAMINATION: Regular rate and rhythm. S1, S2 heard. No murmurs, gallops or rub. EXTREMITIES: 2+ peripheral pulses, no lower extremity edema and no calf tenderness. ASSESSMENT Left breast abscess Breast cancer Non-ischemic cardiomyopathy Mild non-obstructive coronary artery disease Hypertension Dyslipidemia Diabetes mellitus Chronic nicotine dependence PLAN Stable from a cardiac perspective. Entresto is covered by her insurance provider. Follow up with Dr. Davison upon discharge. Nurse Practitioner note has been reviewed, I agree with a documented findings and plan of care. Patient was seen and examined. Objective - Vital Signs Vital signs: Vital Signs Temp 98.0 F 05/27/19 14:18 Pulse 96 05/27/19 14:18 Resp 15 05/27/19 14:18 BP 156/83 05/27/19 14:18 Pulse Ox 95 05/27/19 14:18 Intake & Output 05/26/19 05/27/19 05/27/19 18:59 06:59 18:59 Weight 42.774 kg Other: # Voids 1 2 # Bowel Movements 0 # Emeses 0 - Labs CBC & Chem 7: 05/27/19 08:54 05/27/19 08:54 Labs: Abnormal Lab Results - Last 24 Hours (Table) 05/26/19 05/26/19 05/27/19 Range/Units 17:15 19:24 02:59 Creatinine (0.52-1.04) mg/dL Glucose (74-99) mg/dL POC Glucose (mg/dL) 284 H 277 H 180 H (75-99) mg/dL Calcium (8.4-10.2) mg/dL C-Reactive Protein (<10.0) mg/L 05/27/19 05/27/19 05/27/19 Range/Units 07:25 08:54 11:41 Creatinine 0.40 L (0.52-1.04) mg/dL Glucose 148 H (74-99) mg/dL POC Glucose (mg/dL) 120 H 162 H (75-99) mg/dL Calcium 8.2 L (8.4-10.2) mg/dL C-Reactive Protein 29.8 H (<10.0) mg/L Microbiology - Last 24 Hours (Table) 05/25/19 09:48 Gram Stain - Preliminary Breast - Left Wound Culture - Preliminary Escherichia coli Enterococcus faecalis
[2019-05-27 17:14] LABS: Glucose,Whole Blood 106 mg/dL (75-99)
[2019-05-27] MEDS: Acetaminophen-Codeine 300-30mg TAB PO PRN (18:06)
[2019-05-27 20:22] LABS: Glucose,Whole Blood 160 mg/dL (75-99)
[2019-05-27] MEDS ORDERED: VANCOMYCIN TROUGH DUE 1 EACH MISC MISCELLANE ONE (21:00)
--- NOTE | 2019-05-27 22:58 | PN ---
PROGRESS NOTE DATE OF SERVICE: 05/27/2019 REASON FOR FOLLOWUP: Left breast abscess. INTERVAL HISTORY: The patient is currently afebrile. The patient is breathing comfortably. The patient's overall pain to the left breast area has improved. No nausea, no vomiting. No abdominal pain or diarrhea. PHYSICAL EXAMINATION: Blood pressure 156/83 with a pulse of 96, temperature 98. She is 95% on 2 L nasal cannula. General description is an elderly female lying in bed in no distress. RESPIRATORY SYSTEM: Unlabored breathing. Clear to auscultation anteriorly. HEART: S1, S2. Regular rate and rhythm. ABDOMEN: Soft. No tenderness. Left breast is currently dressed up. No obvious drainage on the dressing. LABS: Hemoglobin is 12.8, white count 5.9. BUN of 8, creatinine 0.40. Wound culture finalized with E coli, Enterococcus faecalis. DIAGNOSTIC IMPRESSION AND PLAN: Patient with left breast abscess, status post surgical drainage; culture with Escherichia coli and Enterococcus faecalis. Antibiotic will be switched over to Unasyn 3 grams q.6 hours. She will benefit from a course of IV antibiotic on discharge. Continue with supportive care. MMODL / IJN: [id number] /
[2019-05-27 23:40] VITALS: RESP 18
[2019-05-28] MEDS: CEFEPIME 2 GM in SODIUM CHLORIDE 0.9% 100 ML IVPB SCH (02:57)
[2019-05-28 06:25] LABS: Glucose,Whole Blood 166 mg/dL (75-99)
[2019-05-28] MEDS: INSULIN ASPART (NovoLOG) 100 UNIT/ML VIAL SQ SCH ×2 (06:45→12:14)
[2019-05-28] MEDS ORDERED: VANCOMYCIN 600 MG in SODIUM CHLORIDE 0.9% 250 ML IVPB SCH (07:00)
[2019-05-28] MEDS: Acetaminophen-Codeine 300-30mg TAB PO PRN (07:08)
[2019-05-28] MEDS: PANTOPRAZOLE 40 MG TABLET PO SCH (07:11)
[2019-05-28 09:10] VITALS: BP 118/65; TEMP 97.9
[2019-05-28] MEDS: ASPIRIN 81 MG PO SCH (09:18)
[2019-05-28] MEDS: SACUBITRIL/VALSARTAN 24 MG-26 MG TABLET PO SCH (09:18)
[2019-05-28] MEDS: LETROZOLE 2.5 MG TAB PO SCH (09:19)
[2019-05-28] MEDS: SPIRONOLACTONE 25 MG TAB PO SCH (09:57)
[2019-05-28] MEDS: METOPROLOL SUCCINATE (ER) 50 MG TAB.ER.24H PO SCH (09:57)
[2019-05-28] MEDS: GLIMEPIRIDE 1 MG TAB PO SCH (09:58)
[2019-05-28] MEDS: ATORVASTATIN 40 MG TAB PO SCH (09:58)
[2019-05-28 09:59] VITALS: PULSE 102
[2019-05-28] MEDS ORDERED: ERTAPENEM 1 GM in SODIUM CHLORIDE 0.9% 50 ML IVPB STA (10:07)
[2019-05-28] MEDS ORDERED: AMPICILLIN-SULBACTAM 3 GM in SODIUM CHLORIDE 0.9% 100 ML IVPB SCH (12:00)
--- NOTE | 2019-05-28 12:05 | P.PN ---
Subjective Progress Note Date: 05/28/19 Principal diagnosis: Left breast cancer/hematoma/abscess The patient is a 73-year-old white female who is status post left breast lumpectomy in March 2019. Post procedure she developed shortness of breath and was treated in the hospital with anticoagulation and developed a hematoma at the lumpectomy site. Recently she presented to the emergency department with some drainage at the incisional site. She was afebrile and her white count was normal. The patient had some necrosis at the lateral aspect of the wound and we proceeded with evacuation of hematoma at bedside. Cultures revealed gram- negative organisms as well as strep B. She was on vancomycin and cefepime. She is seen and followed by infectious disease. The patient is not complaining of any pain. She has been seen by cardiology. The patient's antibiotics to be changed as per infectious disease. It is been recommended she go home with IV antibiotic therapy and wound care. Objective - Vital Signs Vital signs: Vital Signs Temp 97.9 F 05/28/19 08:10 Pulse 102 H 05/28/19 09:59 Resp 18 05/28/19 08:10 BP 118/65 05/28/19 08:10 Pulse Ox 95 05/28/19 08:10 Intake & Output 05/27/19 05/28/19 05/28/19 18:59 06:59 18:59 Other: # Voids 2 1 - Exam BMI 20.4 - Constitutional General appearance: Present: thin - EENT Eyes: Present: EOMI ENT: Present: hearing grossly normal - Neck Neck: Present: normal ROM - Respiratory Respiratory: bilateral: CTA - Cardiovascular Rhythm: regular Heart sounds: normal: S1, S2 - Integumentary Integumentary: Present: normal turgor - Psychiatric Psychiatric: Present: A&O x's 3, appropriate affect, intact judgment & insight - Additional findings Additional findings: Left breast: Packing in place Decreased edema of the breast no Erythema of concern - Labs CBC & Chem 7: 05/27/19 08:54 05/27/19 08:54 Labs: Abnormal Lab Results - Last 24 Hours (Table) 05/27/19 05/27/19 05/28/19 Range/Units 17:12 20:20 06:24 POC Glucose (mg/dL) 106 H 160 H 166 H (75-99) mg/dL Microbiology - Last 24 Hours (Table) 05/27/19 08:54 Blood Culture - Preliminary Blood No Growth after 24 hours 05/25/19 09:48 Gram Stain - Preliminary Breast - Left Wound Culture - Preliminary Escherichia coli Enterococcus faecalis Presumptive Staph aureus Assessment and Plan Assessment: Impression: 1. Patient status post left breast lumpectomy on [id number]. Presented with some necrosis of the lateral aspect of the incision, ultrasound findings as noted with a 2.8-2.6 cm fluid collection at the 1 o'clock position of the left breast, and probable resolving hematoma/probing of the area resulted in evacuation of resolving hematoma 2. Patient admitted after the biopsy on 04-14-19 with shortness of breath and was started on anticoagulation at that time after which she developed a hematoma this has been resolving 3. Tolerating diet without difficulty 4. Low ejection fraction 5. Diabetes 6. Patient had discussed case with medical oncologist and was considering a mastectomy in the near future 7. Patient seen by cardiology who have cleared the patient for operative intervention. 8. Patient's case was presented at tumor board and secondary to the fact that she developed a recurrent/new cancer in the left breast despite she had been on anti-hormonal therapy she is recommended to undergo mastectomy of the left breast 9. Patient seen by infectious disease, home IV antibiotics recommended as well as wound care Plan: 1. Patient on antibiotics as per infectious disease, consider PICC line 2. Patient received cardiac clearance for surgery 3. Discharge patient home as per infectious disease 4. Mastectomy in the near future after patient cleared by infectious disease 5. Patient is stable from a surgical standpoint for discharge as per infectious disease to be followed with Dr. Wallis as an outpatient Time with Patient: Less than 30
[2019-05-28 12:10] LABS: Glucose,Whole Blood 112 mg/dL (75-99)
--- NOTE | 2019-05-28 14:02 | PN ---
PROGRESS NOTE DATE OF SERVICE: 05/28/2019 REASON FOR FOLLOWUP: Left breast abscess and cellulitis. INTERVAL HISTORY: The patient is currently afebrile. Patient is breathing comfortably. Patient denies having any chest pain, shortness of breath or cough. No nausea, no vomiting. No abdominal pain. Nor any worsening pain to the left breast area. PHYSICAL EXAMINATION: Blood pressure 118/65, pulse of 106, temperature 97.9, he is 95% on room air. General description is an elderly female, lying in bed in no distress. RESPIRATORY SYSTEM: Unlabored breathing, clear to auscultation anteriorly. HEART: S1, S2. Regular rate and rhythm. ABDOMEN: Soft, no tenderness. Left breast overall swelling and redness has decreased, no drainage. LABS: Vanco trough of 5.8. Wound culture with E coli, Enterococcus faecalis and presence of Staph aureus. DIAGNOSTIC IMPRESSION AND PLAN: Patient with left breast abscess, status post drainage culture with multiple pathogens, culture showing Staphylococcus aureus now. Will wait for it to be finalized. Antibiotic form of Unasyn will be preferred on discharge if the patient goes to [facility]. If he has any plans to go to an infusion clinic, outpatient antibiotic may be switched to Invanz or daptomycin depending upon the sensitivity on the Staphylococcus aureus. Family at the bedside, their questions were answered. MMODL / IJN: [id number] /
--- NOTE | 2019-05-28 14:56 | P.DS ---
Providers Date of admission: 05/25/19 12:09 Attending physician: Catina Leo Consults: 05/25/19 12:37 Consult Physician Stat Consulting Provider: Bradford Wallis Consult Reason/Comments: Breast abscess Do you want consulting provider notified?: Yes Consult Physician Stat Consulting Provider: Cheikh Wood Consult Reason/Comments: Breast abscess Do you want consulting provider notified?: Yes 05/25/19 19:51 Consult Physician Routine Consulting Provider: Willian Davison Consult Reason/Comments: cardiac clearance Do you want consulting provider notified?: Yes, Notify in am 05/26/19 10:44 Consult Physician Urgent Consulting Provider: Genet Vela Consult Reason/Comments: bresat abscess Do you want consulting provider notified?: Yes Primary care physician: Bradford Wallis Patient Condition at Discharge: Stable Plan - Discharge Summary Discharge Rx Participant: No New Discharge Prescriptions: New Sacubitril/Valsartan [Entresto 24 mg-26 mg Tablet] 1 each PO BID #60 tablet Spironolactone [Aldactone] 25 mg PO DAILY #90 tab Atorvastatin [Lipitor] 40 mg PO DAILY #90 tab Metoprolol Succinate (ER) [Toprol XL] 50 mg PO DAILY #90 tab.er.24h Continue Aspirin 81 mg PO DAILY #90 chew No Action Letrozole 2.5 mg PO DAILY Nateglinide 60 mg PO DAILY Glimepiride [Amaryl] 1 mg PO BID Liraglutide [Victoza 2-Brian] 0.6 mg SQ DAILY Pantoprazole Sodium [Protonix] 40 mg PO DAILY Nitroglycerin Sl Tabs [Nitrostat] 0.4 mg SUBLINGUAL Q5M PRN #25 tab PRN Reason: Chest Pain Acetaminophen Tab [Tylenol] 500 mg PO Q6HR PRN tab PRN Reason: Fever and/ or Mild Pain Discharge Medication List Letrozole 2.5 mg PO DAILY 12/04/17 [History] Nateglinide 60 mg PO DAILY 02/25/18 [History] Glimepiride [Amaryl] 1 mg PO BID 02/27/19 [History] Liraglutide [Victoza 2-Brian] 0.6 mg SQ DAILY 04/14/19 [History] Pantoprazole Sodium [Protonix] 40 mg PO DAILY 04/16/19 [History] Acetaminophen Tab [Tylenol] 500 mg PO Q6HR PRN tab 04/22/19 [Rx] Aspirin 81 mg PO DAILY #90 chew 04/22/19 [Rx] Nitroglycerin Sl Tabs [Nitrostat] 0.4 mg SUBLINGUAL Q5M PRN #25 tab 04/22/19 [Rx] Sacubitril/Valsartan [Entresto 24 mg-26 mg Tablet] 1 each PO BID #60 tablet 05/26/19 [Rx] Atorvastatin [Lipitor] 40 mg PO DAILY #90 tab 05/27/19 [Rx] Metoprolol Succinate (ER) [Toprol XL] 50 mg PO DAILY #90 tab.er.24h 05/27/19 [Rx] Spironolactone [Aldactone] 25 mg PO DAILY #90 tab 05/27/19 [Rx] Follow up Appointment(s)/Referral(s): Bradford Wallis MD [Primary Care Provider] - 06/05/19 4:20 pm Cheikh Wood MD [STAFF PHYSICIAN] - 06/29/19 9:00 am Willian Davison MD [Family Provider] - 06/09/19 9:00 am Patient Instructions/Handouts: Abscess (ED) Activity/Diet/Wound Care/Special Instructions: Patient will be admitted Discharge Disposition: HOME WITH HOME HEALTH SERVICES
[2019-05-29] MEDS ORDERED: VANCOMYCIN TROUGH DUE 1 EACH MISC MISCELLANE ONE (06:00)
--- NOTE | 2019-06-01 08:50 | CDI ---
Documentation Clarification Form Date: 06/01/19 From: Oxana Martins Phone: If you have a question about this query, please contact Marisa Barger [employer] Making [employer] at [phone] between 8am and 5pm. Admit Date: 05/25/19 Discharge Date:05/28/19 Patient Name: Waleska Hooker Visit Number: [id number] ATTENTION: The Clinical Documentation Specialists (CDI) and [facility] Coding Staff appreciate your assistance in clarifying documentation. Please respond to the clarification below the line at the bottom and electronically sign. The CDI & [facility] Coding staff will review the response and follow-up if needed. Please note: Queries are made part of the Legal Health Record. If you have any questions, please contact the author of this message via ITS. Dear Dr. Leo Left breast abscess postoperative is documented in the H&P. Patients Admitting Diagnosis: Left breast cancer/hematoma, left breast abscess postoperative Post-Operative Diagnosis: Left breast cancer Procedure performed: Patient had a left breast lumpectomy in March of 2019 History/Risk Factors: Lumpectomy of the left breast, Hematoma of the left breast Clinical Indicators: Yellow discharge at the incision site, pain and swelling Treatment: IV Unasyn, IV Cefepime, IV Vancomycin In order to accurately reflect this patients severity of illness, please clarify if the post-operative diagnosis is: An expected post-procedural or post-surgical condition An unexpected post-procedural or post-surgical condition related to surgical care (a complication of care) An unexpected post-procedural or post-surgical condition, related to the patients underlying medical comorbidities Other, please specify ____ Unable to determine An not unexpected post-procedural or post-surgical condition The patient had SOB post procedure and was anticoagulated post procedure. She than developed a hematoma which drained. CLAUDIA
== END 2019-05-28 15:50 | disposition home health service (06) | DRG 920 ==
LOC: EC 08:56 → 5NMEDONC 12:09 → 6NMEDSUR 05-26 15:17 → 6PED 05-27 23:56
PROVIDERS: ADMIT Surgery; ATTEND Surgery
PROC: 05HD33Z Insertion of Infusion Device into Right Cephalic Vein, Percutaneous Approach (ICD-10-PCS; principal; 2019-05-28 07:30)
DX: L76.82 Other postprocedural complications of skin and subcutaneous tissue (principal); J84.9 Interstitial pulmonary disease, unspecified; I42.8 Other cardiomyopathies; N61.1 Abscess of the breast and nipple; C50.912 Malignant neoplasm of unspecified site of left female breast; E11.9 Type 2 diabetes mellitus without complications; E78.5 Hyperlipidemia, unspecified; F17.210 Nicotine dependence, cigarettes, uncomplicated; I10 Essential (primary) hypertension; I25.10 Atherosclerotic heart disease of native coronary artery without angina pectoris; I25.2 Old myocardial infarction; J44.9 Chronic obstructive pulmonary disease, unspecified; K21.9 Gastro-esophageal reflux disease without esophagitis; B95.2 Enterococcus as the cause of diseases classified elsewhere; B96.20 Unspecified Escherichia coli [E. coli] as the cause of diseases classified elsewhere; Z79.811 Long term (current) use of aromatase inhibitors; Z79.82 Long term (current) use of aspirin; Z79.84 Long term (current) use of oral hypoglycemic drugs; Z79.899 Other long term (current) drug therapy; Z85.3 Personal history of malignant neoplasm of breast; Z92.3 Personal history of irradiation; Z92.21 Personal history of antineoplastic chemotherapy; Z80.9 Family history of malignant neoplasm, unspecified
CPT/HCPCS: 36410; 36415; 71046; 76937; 80048; 80053; 80202; 85025; 86140; 87040; 87070; 87077; 87186; 87205; 93005; 96365; 96366; 96368; 96375; 99285

== ENCOUNTER → 2019-06-05 | Outpatient (CLI) | payer MEDICARE, OTHER ==
[2019-06-05 16:00] VITALS: BP 141/82; PULSE 96; RESP 14; TEMP 97.8
--- NOTE | 2019-06-19 08:47 | P.PN ---
Progress Note - Text Progress Note Date: 06/19/19 Waleska is a 73-year-old white female who is status post left breast lumpectomy in March 2019. Postprocedure she developed shortness of breath and was treated in the hospital with anticoagulation and developed a hematoma at the lumpectomy site. She presented recently to the emergency department with some drainage at the incision site. She was afebrile and her white count was normal. She did have some necrosis at the lateral aspect of the wound and evacuation of hematoma at bedside was performed. She subsequently had the area packed and was seen by infectious disease. She was started on vancomycin and cefepime. She is being followed by infectious disease and receiving home ant ibiotic therapy. This time she has no complaints related to the breast. Physical exam: Lungs: Clear Heart: Regular rate and rhythm Left breast packing in place decreased edema of the breast resolved infection Impression: Left breast hematoma/infection following open excisional biopsy Low ejection fraction Diabetes Patient's pathology revealed cancer in the previously radiated breast and recomm endation as per medical oncologists for mastectomy Plan: 1. Continue antibiotic therapy as per infectious disease 2. Clearance from cardiology and medicine 3. Mastectomy in the near future after cleared by infectious disease/medicine Cc: Dr. Bradford Wallis Encounter: 15 minutes, > 50 % in planning and counselling
--- NOTE | 2019-06-23 17:15 | P.PN ---
Progress Note - Text Progress Note Date: 06/23/19 I had a conversation with the patient's daughter today regarding the fact that the patient now has interest in having reconstruction. I've discussed the fact that the patient has had a recent infection, and that this is radiated breast tissue. I've given her the option of seeing a plastic surgeon. However after our conversation she spoke with her mother and her mother has opted for no reconstruction at this time. It should be noted that the patient will have a sentinel node injection with attempted sentinel node biopsy. The radiotracer may not travel secondary to the prior surgery however after discussion at tumor Board an attempted sentinel node biopsy was recommended. I discussed this with the family and they are in agreement.
== END ==
LOC: WWCWWP 15:16
PROVIDERS: ATTEND Surgery
DX: Z53.9 Procedure and treatment not carried out, unspecified reason (principal)

== ENCOUNTER 2019-06-24 07:02 | Day surgery (SDC) | payer MEDICARE, OTHER ==
[2019-06-22 15:43] VITALS: BMI 19.6
[~2019-06-24 07:02] MED LIST changes: -LIDOCAINE 1% 20 ML VIAL (10MG/ML) FOR IV START INTRADERMA PRN; +MIDAZOLAM 2 MG/2 ML VIAL IV PRN; +SCOPOLAMINE 1.5MG/72HR PATCH TRANSDERM ONE
[2019-06-24] MEDS ORDERED: ALPRAZolam 0.25 MG TAB PO ONE (07:24)
[2019-06-24] MEDS ORDERED: LIDOCAINE 1% 20 ML VIAL (10MG/ML) FOR IV START INTRADERMA ONE (07:33)
[2019-06-24 07:34] VITALS: BP 173/93; PULSE 95; RESP 16; TEMP 97.2
[2019-06-24] MEDS ORDERED: INSULIN ASPART (NovoLOG) 100 UNIT/ML VIAL SQ ONE (07:38)
[2019-06-24 07:46] LABS: Glucose,Whole Blood 264 mg/dL (75-99)
--- NOTE | 2019-06-24 08:03 | NM ---
EXAMINATION TYPE: NM sentinel node injection DATE OF EXAM: 06/24/2019 COMPARISON: Left breast needle localization with open biopsy on 04/14/2019 HISTORY: Left breast cancer with request for sentinel node injection TECHNIQUE AND FINDINGS: The procedure of sentinel lymph node injection was explained to the patient. The benefits, alternatives, and risks were discussed. An informed consent was then obtained. Overlying skin is cleaned with sterile alcohol. Following this, 529 uCi Tc99m Tilmanocept was inject ed in the upper outer aspect of the left nipple intradermally. The patient tolerated the procedure well without any immediate complication. The patient was kept in the radiology department for short stay after the procedure and then taken to surgery for surgical p rocedure what is presumed intraoperative gamma probe will be used for sentinel lymph node detection. IMPRESSION: Left breast radiotracer injection for sentinel node localization as above.
--- NOTE | 2019-06-24 11:18 | P.PN ---
Progress Note - Text Progress Note Date: 06/24/19 Patient was seen preoperatively and it was identified that she had not stopped her aspirin. After discussion with the patient and her daughters it was felt that it would be safest to reschedule the operative procedure. Therefore procedure was canceled for today. She will be rescheduled in the near future.
== END 2019-06-24 09:06 | disposition home or self-care (01) ==
LOC: OR 07:02
PROVIDERS: ATTEND Surgery
DX: C50.912 Malignant neoplasm of unspecified site of left female breast (principal); Z53.8 Procedure and treatment not carried out for other reasons; I25.10 Atherosclerotic heart disease of native coronary artery without angina pectoris; I11.0 Hypertensive heart disease with heart failure; I50.22 Chronic systolic (congestive) heart failure; F17.210 Nicotine dependence, cigarettes, uncomplicated; E78.49 Other hyperlipidemia; E11.9 Type 2 diabetes mellitus without complications; K21.9 Gastro-esophageal reflux disease without esophagitis; M19.90 Unspecified osteoarthritis, unspecified site; Z97.2 Presence of dental prosthetic device (complete) (partial); Z98.49 Cataract extraction status, unspecified eye; Z82.49 Family history of ischemic heart disease and other diseases of the circulatory system; Z79.84 Long term (current) use of oral hypoglycemic drugs; Z79.82 Long term (current) use of aspirin; Z79.899 Other long term (current) drug therapy
CPT/HCPCS: 38792

== ENCOUNTER → 2019-10-16 | Outpatient (CLI) | payer MEDICARE, OTHER ==
[2019-10-16 11:09] VITALS: BP 148/78; PULSE 84; RESP 20; TEMP 98.4
--- NOTE | 2019-10-16 12:20 | P.PN ---
Subjective Progress Note Date: 10/16/19 Principal diagnosis: left breast cancer Waleska is a 73-year-old female who has a prior history of left breast cancer approximately 8 years ago. This was treated with a lumpectomy and radiation therapy in [place]. She was treated with both radiation and chemo therapy. She is presently on annestrazole. She believes the tumor was 2 cm, she is uncertain as to whether there was any cancer in the lymph nodes. She was told this was a stage II tumor. The lesion on the left was a 2.2 cm grade 3 cancer with DCIS. Her sentinel node was negative. The tumor was ER/LA positive and HER-2/esha new amplified by IHC only +1 by ICH. She was treated adjuvantly with 4 cycles of dose dense AC, followed by 4 cycles of Taxol given along with Herceptin. After completion of chemo she had radiation and then was started on letrazole. Herceptin was continued and 1 year of therapy was completed in November 2010. She had a bilateral mammogram performed on 8718. The right breast was noted to have some medial distortion 2.5 cm from the nipple She subsequently underwent bilateral breast ultrasound. Right breast did not show any specific lesions of concern, in the left breast there was a 6 x 8 mm irregular solid hypoechoic lesion at 2:00 which biopsy was recommended. Ultrasound-guided core biopsy was performed on 9318. The biopsy revealed atypical epithelial proliferation and it was recommended that needle localization and excision be performed. Localization and excision was performed on . 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 Tumor was ER positive and LA negative. He was HER-2/esha negative. This was felt to be a small new primary. PET scan in April 2019 was negative for metastatic disease. She was continuing the aromatase inhibitor however after presentation at tumor board recommendation was for a mastectomy. The patient after the needle local excisional biopsy developed some shortness of breath and was admitted to the hospital with cardiac decompensation. She was evaluated by cardiology and a cardiac catheterization was performed. The patient was anticoagulated and then developed a hematoma at the biopsy site. She subsequently after the cardiac cath which did not reveal anything necessitating stenting had anticoagulation stopped. She was admitted to the hospital and the area of hematoma drained spontaneously and she was given IV ant ibiotics. This was continued at home for approximately 2 weeks. The patient was scheduled for a mastectomy however with the coronavirus the mastectomy was canceled. There is no complaints at this time related to her breasts. Family History: brother: throat cancer Hormonal History: menarche: 15 , breast fed: no, first born at 24 menopase: 57 BCP: 10 years hormones: one Surgical history: 1. Left breast lumpectomy and sentinel node biopsy 2. left breast needle localization and excisional biopsy Medical history: 1. diabetes Social history: Smoke: 5 cig./day for 50 years, used to smoke 1/2 PPD alcohol: none drugs: none - Constitutional Constitutional: Denies chills, Denies fever - EENT Eyes: denies blurred vision, denies pain Ears: deny: decreased hearing, tinnitus Ears, nose, mouth and throat: Denies headache, Denies sore throat - Breasts Breasts: bilateral: as per HPI - Cardiovascular Cardiovascular: Denies chest pain, Denies shortness of breath, cardiac dec ompensation after needle localization and biopsy - Respiratory Comment: smoker Respiratory: Denies cough, smoker - Gastrointestinal Comment: ulcers Gastrointestinal: Denies abdominal pain, Denies diarrhea, Denies nausea, Denies vomiting - Genitourinary (Female) Genitourinary: Denies dysuria, Denies hematuria - Menstruation Menstruation: Reports postmenopausal - Musculoskeletal Musculoskeletal: Reports muscle cramps - Integumentary Integumentary: Denies pruritus, Denies rash - Neurological Neurological: Denies numbness, Denies weakness - Psychiatric Psychiatric: Denies anxiety, Denies depression - Endocrine Comment: diabetes Endocrine: Denies fatigue, Denies weight change - Hematologic/Lymphatic Comment: none - Allergic/Immunologic Allergic/Immunologic: Reports as per HPI Past Medical History Past Medical History: Cancer, Diabetes Mellitus, GERD/Reflux, Hyperlipidemia, Hypertension Additional Past Medical History / Comment(s): Breast cancer @ 65 years old History of Any Multi-Drug Resistant Organisms: None Reported Past Surgical History: Breast Surgery Additional Past Surgical History / Comment(s): lumpectomy @ 65 left breast, chem o/radiation. Past Anesthesia/Blood Transfusion Reactions: No Reported Reaction Past Psychological History: No Psychological Hx Reported Smoking Status: Former smoker Past Alcohol Use History: None Reported Additional Past Alcohol Use History / Comment(s): Has been smoking for 48-49 yrs, 5 cigarettes per day. quit smoking december 2018 Past Drug Use History: None Reported - Past Family History Mother Family Medical History: No Reported History Brother(s) Family Medical History: Cancer Medications and Allergies Home Medications Medication Instructions Recorded Confirmed Type Letrozole 2.5 mg PO DAILY 12/04/17 02/27/19 History Nateglinide 60 mg PO DAILY 02/25/18 02/27/19 History Losartan [Cozaar] 50 mg PO DAILY tab 02/27/18 02/27/19 Rx Pantoprazole Sodium [Protonix] 40 mg PO BID #60 tablet.dr 02/27/18 02/27/19 Rx Glimepiride [Amaryl] 1 mg PO BID 02/27/19 02/27/19 History Allergies Allergy/AdvReac Type Severity Reaction Status Date / Time No Known Allergies Allergy Verified 01/20/19 11:52 Objective - Vital Signs Vital signs: Vital Signs Temp 98.4 F 10/16/19 11:05 Pulse 84 10/16/19 11:05 Resp 20 10/16/19 11:05 BP 148/78 10/16/19 11:05 Pulse Ox 96 10/16/19 11:05 Intake & Output 10/15/19 10/16/19 10/16/19 18:59 06:59 18:59 Weight 39.009 kg - Exam BMI 17.4 - Constitutional General appearance: Present: thin - EENT Eyes: Present: EOMI ENT: Present: hearing grossly normal - Neck Neck: Present: normal ROM - Respiratory Respiratory: bilateral: CTA - Cardiovascular Rhythm: regular Heart sounds: normal: S1, S2 - Gastrointestinal General gastrointestinal: Present: normal bowel sounds, soft - Integumentary Integumentary: Present: normal turgor - Musculoskeletal Musculoskeletal: Present: gait normal - Psychiatric Psychiatric: Present: A&O x's 3, appropriate affect, intact judgment & insight - Additional findings Additional findings: Breast Exam: Bra 34 B inspection: right breast no skin changes, left breast scar upper quadrant The patient: right Breast: Positional exam no dominant masses or nodules of concern right Axilla: No adenopathy of concern left breast post op changes, and scarring OUQ Left axilla: No adenopathy of concern Assessment and Plan Assessment: Impression: 1. Patient status post left breast lumpectomy sentinel node biopsy 2009 for stage II cancer 2. Left breast cancer 3. Diabetes 4. Cardiac disease Plan: 1. Left breast mastectomy with sentinel node biopsy possible axillary node dissection 2. Cardiac clearance 3. Medical clearance from primary care doctor A skin benefits of the procedure were discussed with the patient. Risks include but are not limited to bleeding, infection, reaction to the anesthetic. She understands and wishes to proceed. She also has increased risk from her medical condition and cardiac status. CC: Dr. Wallis encounter 40 minutes, > 50% of time in planning and counselling Time with Patient: Greater than 30
== END | disposition home or self-care (01) ==
LOC: WWCWWP 10:58
PROVIDERS: ATTEND Surgery
DX: Z53.9 Procedure and treatment not carried out, unspecified reason (principal)

== ENCOUNTER → 2019-10-20 | Outpatient (CLI) | payer MEDICARE, OTHER ==
--- NOTE | 2019-10-20 10:28 | MM ---
Reason for exam: follow-up at short interval from prior study. Last mammogram was performed 6 months ago. History: Patient is postmenopausal and has history of breast cancer at age 73. Malignant US breast localization LT of the right breast, April 14, 2019. Benign US biopsy breast VAD LT of the left breast, January 20, 2019. Lumpectomy of the left breast, 2011. Chemotherapy, 2011. Radiation therapy, 2011. Taking antineoplastic for 7 years beginning at age 65. Physical Findings: Breast exam performed by Dr. Leo. MG 3D Diag Mammo W/Cad RT CC and MLO view(s) were taken of the right breast. Prior study comparison: April 14, 2019, left breast MG diagnostic mammo LT wo CAD. January 20, 2019, left breast MG diagnostic mammo LT wo CAD. The breast tissue is extremely dense which could obscure a lesion on mammography. No suspicious abnormality. Previously seen right medial asymmetry is less conspicuous. These results were verbally communicated with the patient and result sheet given to the patient on 10/20/19. ASSESSMENT: Benign, BI-RAD 2 RECOMMENDATION: Routine screening mammogram of the right breast in 1 year. (However mastectomy is being performed for left)
== END | disposition home or self-care (01) ==
LOC: RADMAMWWP 09:09
PROVIDERS: ATTEND Surgery
DX: Z08 Encounter for follow-up examination after completed treatment for malignant neoplasm (principal); Z85.3 Personal history of malignant neoplasm of breast
CPT/HCPCS: 77065; G0279; 77061

== ENCOUNTER → 2019-10-23 | Outpatient (CLI) | payer MEDICARE, OTHER | END | disposition home or self-care (01) | LOC: LABWHC1 09:19 | PROVIDERS: ATTEND Surgery | DX: Z11.59 Encounter for screening for other viral diseases (principal) ==

== ENCOUNTER 2019-10-27 07:39 | Observation (INO) | payer MEDICARE, OTHER ==
[2019-10-26 09:54] VITALS: BMI 18.8
[~2019-10-27 07:39] MED LIST changes: -LACTATED RINGERS 1,000 ML IV SCH; +LIDOCAINE 1% (10MG/ML) FOR IV START INTRADERMA PRN; -SCOPOLAMINE 1.5MG/72HR PATCH TRANSDERM ONE
[2019-10-27] MEDS: LACTATED RINGERS 1,000 ML IV SCH (08:13)
[2019-10-27 08:17] LABS: Glucose,Whole Blood 202 mg/dL (75-99)
[2019-10-27] MEDS ORDERED: PHENYLEPHRINE-0.9% NACL SYG 1 MG/10 ML SYRINGE ONE (09:00)
[2019-10-27] MEDS ORDERED: PROPOFOL 10 MG/ML 20 ML VIAL IV ONE (09:00)
[2019-10-27] MEDS ORDERED: MIDAZOLAM 2 MG/2 ML VIAL ONE (09:00)
[2019-10-27] MEDS ORDERED: fentaNYL (PF) 50 MCG/ML 2 ML AMP ONE (09:00)
[2019-10-27] MEDS ORDERED: ROCURONIUM BROMIDE 10 MG/ML 5 ML VIAL IV ONE (09:00)
[2019-10-27] MEDS ORDERED: SUCCINYLCHOLINE CHLORIDE 100 MG/5 ML SYR IV ONE (09:00)
[2019-10-27] MEDS ORDERED: LIDOCAINE 1% INJ 10MG/ML (20 ML MDV) ONE (09:00)
[2019-10-27] MEDS ORDERED: LACTATED RINGERS 1,000 ML IV ONE (09:04)
--- NOTE | 2019-10-27 09:14 | NM ---
EXAMINATION TYPE: NM sentinel node injection DATE OF EXAM: 10/27/2019 COMPARISON: Exams dating back to 12/24/2018. HISTORY: Left breast cancer with request for radiotracer injection. TECHNIQUE AND FINDINGS: The procedure of sentinel lymph node injection was explained to the patient. The benefits, alternatives, and risks were discussed. An informed consent was then obtained. Prepro cedural timeout was performed. Overlying skin is cleaned with sterile alcohol. Following this, 531 uCi Tc99m Tilmanocept was inject ed in the upper outer aspect of the left nipple intradermally. The patient tolerated the procedure well without any immediate complication. The patient was kept in the radiology department for short stay after the procedure and then taken to surgery for surgical p rocedure what is presumed intraoperative gamma probe will be used for sentinel lymph node detection. IMPRESSION: Left breast radiotracer injection for sentinel node localization as above.
[2019-10-27] MEDS ORDERED: METHYLENE BLUE 50 MG/10 ML AMPUL MISCELLANE ONE (09:41)
--- NOTE | 2019-10-27 11:12 | P.OP ---
Date of Procedure: 10/27/19 Preoperative Diagnosis: Left breast cancer Postoperative Diagnosis: Same Procedure(s) Performed: Left breast sentinel node mapping, mastectomy, low axillary node dissection Anesthesia: DUA Surgeon: Catina Leo Estimated Blood Loss (ml): 20 IV fluids (ml): 600 Pathology: other (breast tissue) Condition: stable Disposition: floor Indications for Procedure: left breast cancer Operative Findings: scar and dense radiated breast tissue Description of Procedure: The patient is a 73-year-old female who underwent a left breast lumpectomy and sentinel node biopsy in the past. She subsequently developed radiographic abnormality which revealed atypia and underwent biopsy which revealed a cancer. Her case was presented at tumor Board and it was recommended she undergo a mastectomy. Risks and benefits of the procedure were discussed with the patient and her daughters in the wished to proceed. The patient underwent uneventful coronary injection in the periareolar region. There was some concern that the radiotracer. Secondary to scar tissue and radiation tissue. The patient was then brought to the operating room and following induction of anesthesia the neoprobe was used to interrogate the axilla. A small amount of radioactivity was identified that there was concern that the radiotracer had not traveled appropriately. Therefore 50% methylene blue was used to inject the subdermal area near the tumor bed lateral in the breast. The breast was then massaged. Lymphatic mapping was passed performed. Following this the left breast and axilla were prepped and draped in a sterile fashion. Lines were drawn using a marking pen superior and inferior skin flaps. Dissection was performed developing superior and inferior flaps down to the chest wall. The breast was then taken from medial to lateral off the pectoralis major muscle being careful to maintain hemostasis using electrocautery device. Dissection to the area of the axilla was performed. The neoprobe was used and no discrete area of increased radioactivity was identified. The blue tracer likewise did not show any discrete lymph node. The lower axillary node tissue was removed and small palpable lymph node was definitely identifed and removed. These were deep axillary lymph nodes. No suspecious enlarged adenopathy of concern was identified. The vessels in the axilla were cauterized or ligated as needed. After this the wound was well irrigated. 2 BAIRON drains were placed and secured using nylon suture. These were #10 drains. The skin flaps were then closed using 3-0 Vicryl suture followed by closure with brian. The drains were noted to hold suction without difficulty. There were secured in place using a nylon suture. The specimen was tagged for orientation with a short suture superior and a long suture lateral. The patient tolerated the procedure in stable condition. All instrument and sponge counts were correct at the end of the case.
[2019-10-27] MEDS ORDERED: HYDROcodone/APAP 5-325MG 1 EACH TAB PO PRN (11:13)
[2019-10-27] MEDS ORDERED: ONDANSETRON 4 MG/2 ML VIAL IVP PRN (11:13)
[2019-10-27] MEDS ORDERED: NALOXONE 0.4 MG/ML 1 ML VIAL IV PRN (11:13)
[2019-10-27] MEDS ORDERED: D5-0.45% NACL WITH KCL 20MEQ/L 1,000 ML IV SCH (14:00)
[2019-10-27] MEDS: ATORVASTATIN 40 MG TAB PO SCH ×2 (14:32→14:38)
[2019-10-27] MEDS: HYDROmorphone 0.5 MG/0.5 ML SYRINGE IVP PRN ×2 (14:38→21:15)
--- NOTE | 2019-10-27 15:24 | P.CONS ---
History of Present Illness - Reason for Consult recommendations regardingdiabetic and hypertensive medications - History of Present Illness 81-year-old pleasant female underwent the left mastectomy and axillary lymph node dissection patient is still coming out of anesthesia denied any complaints of pain at this time denied any fever chills nausea vomiting. Review of Systems REVIEW OF SYSTEMS: CONSTITUTIONAL: No fever, no malaise, no fatigue. HEENT: No recent visual problems or hearing problems. Denied any sore throat. CARDIOVASCULAR: No chest pain, orthopnea, PND, no palpitations, no syncope. PULMONARY: No shortness of breath, no cough, no hemoptysis. GASTROINTESTINAL: No diarrhea, no nausea, no vomiting, no abdominal pain. NEUROLOGICAL: No headaches, no weakness, no numbness. HEMATOLOGICAL: Denies any bleeding or petechiae. GENITOURINARY: Denies any burning micturition, frequency, or urgency. MUSCULOSKELETAL/RHEUMATOLOGICAL: Denies any joint pain, swelling, or any muscle pain. ENDOCRINE: Denies any polyuria or polydipsia. The rest of the 14-point review of systems is negative. Past Medical History Past Medical History: Cancer, Diabetes Mellitus, GERD/Reflux, Hyperlipidemia, Hypertension, Myocardial Infarction (PR) Additional Past Medical History / Comment(s): LEFT Breast cancer @ 65 years old- chemo and radiation, "minor" heart attack, constipation, Last Myocardial Infarction Date:: 04/2019 History of Any Multi-Drug Resistant Organisms: None Reported Past Surgical History: Breast Surgery, Uterine Ablation Additional Past Surgical History / Comment(s): LASER SURGERY ON BOTH EYES FOR GLAUCOMA. left breast lumpectomy 04/14/19 Past Anesthesia/Blood Transfusion Reactions: No Reported Reaction Smoking Status: Current every day smoker - Past Family History Mother Family Medical History: No Reported History Brother(s) Family Medical History: Cancer Medications and Allergies Home Medications Medication Instructions Recorded Confirmed Type Letrozole 2.5 mg PO DAILY 12/04/17 10/26/19 History Nateglinide 60 mg PO DAILY 02/25/18 10/26/19 History Glimepiride [Amaryl] 1 mg PO BID 02/27/19 10/26/19 History Liraglutide [Victoza 2-Brian] 0.6 mg SQ DAILY 04/14/19 10/26/19 History Pantoprazole Sodium [Protonix] 40 mg PO QAM 04/16/19 10/26/19 History Aspirin 81 mg PO DAILY #90 chew 04/22/19 10/26/19 Rx Nitroglycerin Sl Tabs [Nitrostat] 0.4 mg SUBLINGUAL Q5M PRN #25 tab 04/22/19 10/26/19 Rx Sacubitril/Valsartan [Entresto 24 1 each PO BID #60 tablet 05/26/19 10/26/19 Rx mg-26 mg Tablet] Atorvastatin [Lipitor] 40 mg PO DAILY #90 tab 05/27/19 10/26/19 Rx Spironolactone [Aldactone] 25 mg PO DAILY #90 tab 05/27/19 10/26/19 Rx Metoprolol Succinate (ER) [Toprol 50 mg PO QAM 06/22/19 10/26/19 History XL] Multivit/Folic Acid/Vit K1 1 each PO DAILY 10/16/19 10/26/19 History [One-A-Day Women's 50 Plus Tab] Allergies Allergy/AdvReac Type Severity Reaction Status Date / Time No Known Allergies Allergy Verified 10/27/19 08:07 Physical Exam Vitals: Vital Signs Temp Pulse Pulse Pulse Resp BP Pulse Ox 10/27/19 14:45 104 H 174/94 100 10/27/19 14:30 98.4 F 100 14 165/84 100 10/27/19 14:00 98 18 128/70 98 10/27/19 13:30 98 18 119/60 96 10/27/19 13:01 96 18 114/60 100 10/27/19 12:45 102 H 18 122/58 100 10/27/19 12:30 105 H 16 152/68 100 10/27/19 12:15 103 H 102 H 154/68 100 10/27/19 12:00 103 H 16 148/85 100 10/27/19 11:49 104 H 16 171/88 100 10/27/19 11:31 106 H 16 141/76 100 10/27/19 11:13 97 F L 105 H 16 160/74 100 10/27/19 08:11 97 F L 62 16 127/65 94 L Intake and Output 10/27/19 10/27/19 10/27/19 06:59 14:59 22:59 Intake Total 900 Output Total 20 Balance 880 Intake: IV 900 Output: Estimated Blood Loss 20 Other: Weight 38.1 kg PHYSICAL EXAMINATION: GENERAL: The patient is drowsy and oriented x3, not in any acute distress. Well developed, well nourished. HEENT: Pupils are round and equally reacting to light. EOMI. No scleral icterus. No conjunctival pallor. Normocephalic, atraumatic. No pharyngeal erythema. No thyromegaly. CARDIOVASCULAR: S1 and S2 present. No murmurs, rubs, or gallops. PULMONARY: Chest is clear to auscultation, no wheezing or crackles. ABDOMEN: Soft, nontender, nondistended, normoactive bowel sounds. No palpable or ganomegaly. MUSCULOSKELETAL: No joint swelling or deformity. EXTREMITIES: No cyanosis, clubbing, or pedal edema. NEUROLOGICAL: Gross neurological examination did not reveal any focal deficits. SKIN: No rashes. Results Labs: Abnormal Lab Results - Last 24 Hours (Table) 10/27/19 Range/Units 08:10 POC Glucose (mg/dL) 202 H (75-99) mg/dL Assessment and Plan Plan: -type 2 diabetes mellitus patient will be resumed on her home regimen except for glipizide patient was started on sliding scale -history of nonischemic cardiomyopathywith EF of 30-40% patient clinically doesn't appear to be in heart failure exacerbation at this time we'll discontinue IV fluids. Patient will be resumed on an Presto once I get the basic metabolic profile available. -hypertension patient blood pressure is elevated will be resumed on home regimen titration of blood pressure medications depending on her blood pressure during this hospitalization -gastroesophageal reflux disease -Hyperlipidemia -Coronary artery disease -Nicotine abuse -Left breast cancer status post mastectomy and sentinel node biopsy .
[2019-10-27 17:30] LABS: Glucose,Whole Blood 321 mg/dL (75-99)
[2019-10-27] MEDS: INSULIN ASPART (NovoLOG) 100 UNIT/ML VIAL SQ SCH ×2 (17:46→21:15)
[2019-10-27 20:32] LABS: Glucose,Whole Blood 369 mg/dL (75-99)
[2019-10-27] MEDS: SACUBITRIL/VALSARTAN 24 MG-26 MG TABLET PO SCH (21:15)
[2019-10-27] MEDS: HEPARIN SODIUM,PORCINE 5,000 UNIT/ML 1 ML VIAL SQ SCH (21:15)
[2019-10-28] MEDS: LACTATED RINGERS 1,000 ML IV SCH ×3 (05:02→09:14)
[2019-10-28] MEDS: HYDROmorphone 0.5 MG/0.5 ML SYRINGE IVP PRN (05:03)
[2019-10-28 07:16] LABS: Glucose,Whole Blood 181 mg/dL (75-99)
[2019-10-28] MEDS ORDERED: PANTOPRAZOLE 40 MG TABLET PO SCH (07:30)
[2019-10-28 07:48] LABS: HCT 36.3 % (34.0-46.0); HGB 11.7 gm/dL (11.4-16.0); MCH 30.9 pg (25.0-35.0); MCHC 32.1 g/dL (31.0-37.0); Mean Platelet Volume 8.8; Platelet Count 243 k/uL (150-450); RBC 3.78 m/uL (3.80-5.40); RDW 12.7 % (11.5-15.5); WBC 11.7 k/uL (3.8-10.6)
[2019-10-28 07:59] LABS: African American GFR (CKD) >90 (>60 ml/min/1.73 sqM); Anion Gap 6 mmol/L; Blood Urea Nitrogen 12 mg/dL (7-17); Calcium 9.1 mg/dL (8.4-10.2); Carbon Dioxide 27 mmol/L (22-30); Chloride 100 mmol/L (98-107); Glucose 184 mg/dL (74-99); Non-African American GFR(CKD) >90 (>60 ml/min/1.73 sqM); Sodium 133 mmol/L (137-145)
[2019-10-28] MEDS ORDERED: METOPROLOL SUCCINATE (ER) 50 MG TAB.ER.24H PO SCH (09:00)
[2019-10-28] MEDS ORDERED: ASPIRIN 81 MG PO SCH (09:00)
[2019-10-28] MEDS ORDERED: LETROZOLE 2.5 MG TAB PO SCH (09:00)
[2019-10-28] MEDS: INSULIN ASPART (NovoLOG) 100 UNIT/ML VIAL SQ SCH (09:14)
[2019-10-28] MEDS: ATORVASTATIN 40 MG TAB PO SCH (09:15)
[2019-10-28] MEDS: HEPARIN SODIUM,PORCINE 5,000 UNIT/ML 1 ML VIAL SQ SCH (09:15)
[2019-10-28] MEDS: SACUBITRIL/VALSARTAN 24 MG-26 MG TABLET PO SCH (09:16)
--- NOTE | 2019-10-28 10:47 | P.PN ---
Subjective Progress Note Date: 10/28/19 Principal diagnosis: Status post left breast mastectomy postop day #1 The patient is a 73-year-old female status post left mastectomy with axillary node sampling. She is postop day #1. She is tolerating diet without difficulty. She is not complaining of any pain. She has been on a monitoring tech. She was seen in consultation by Dr. Carranza postoperatively. Her BAIRON output has been serous in nature. The drains were milked this morning and an additional approximately 30 mL of fluid was obtained from one of the drains. Objective - Vital Signs Vital signs: Vital Signs Temp 98.4 F 10/28/19 05:00 Pulse 101 H 10/28/19 08:40 Resp 20 10/28/19 08:40 BP 122/69 10/28/19 05:00 Pulse Ox 98 10/28/19 05:00 Intake & Output 10/27/19 10/28/19 10/28/19 18:59 06:59 18:59 Intake Total 900 1100 Output Total 20 40 Balance 880 1060 Weight 38.1 kg Intake: IV 900 Intake, IV Titration 900 Amount D5-0.45% NaCl with KCl 900 20Meq/l 1,000 ml @ 75 mls /hr IV .[id number] [facility] Rx#: [id number] Oral 200 Output: Drainage 40 Left Chest Drain 2 40 Left Chest drain 1 0 Estimated Blood Loss 20 Other: Voiding Method Toilet Toilet # Voids 2 - Constitutional General appearance: Present: thin - EENT Eyes: Present: EOMI ENT: Present: hearing grossly normal - Neck Neck: Present: normal ROM - Respiratory Details: Slightly decreased breath sounds at the bases - Cardiovascular Heart sounds: normal: S1, S2 - Integumentary Integumentary Comment(s): Incision clean and dry BAIRON drains serous output BAIRON drain was stripped and an additional 30 mL of serous drainage was obtained from one of the drains. There is no evidence of any hematoma Integumentary: Present: normal turgor - Psychiatric Psychiatric: Present: A&O x's 3, appropriate affect, intact judgment & insight - Labs CBC & Chem 7: 10/28/19 07:09 10/28/19 07:09 Labs: Abnormal Lab Results - Last 24 Hours (Table) 10/27/19 10/27/19 10/28/19 Range/Units 17:27 20:21 07:09 WBC 11.7 H (3.8-10.6) k/uL RBC 3.78 L (3.80-5.40) m/uL Sodium (137-145) mmol/L Glucose (74-99) mg/dL POC Glucose (mg/dL) 321 H 369 H (75-99) mg/dL 10/28/19 10/28/19 Range/Units 07:09 07:15 WBC (3.8-10.6) k/uL RBC (3.80-5.40) m/uL Sodium 133 L (137-145) mmol/L Glucose 184 H (74-99) mg/dL POC Glucose (mg/dL) 181 H (75-99) mg/dL Assessment and Plan Assessment: Impression: 1. Patient postop day #1 left breast mastectomy and axillary node sampling 2. History of cardiac disease 3. Diabetes Plan: 1. DC home with home health care for okay with medicine 2. Follow-up with Dr. Wallis in 1-2 days to evaluate drains 3. Teach family drain care Cc: Dr. Bradford Wallis
--- NOTE | 2019-10-28 10:51 | P.DS ---
Providers Date of admission: 10/28/19 08:07 Attending physician: Catina Leo Consults: 10/27/19 11:13 Consult Physician Routine Consulting Provider: Bradford Wallis Consult Reason/Comments: medical managment Do you want consulting provider notified?: Yes Consult Physician Routine Consulting Provider: Willian Davison Consult Reason/Comments: medical managment Do you want consulting provider notified?: Yes Primary care physician: Bradford Wallis Hospital Course: Patient is a 73-year-old female status post left breast mastectomy and low axillary node dissection. She has done well postoperative. Her BAIRON output is serous in nature. Her hemoglobin is stable at 11.7. She is stable from a surgical standpoint for discharge home if okay with medicine. Plan - Discharge Summary Discharge Rx Participant: No New Discharge Prescriptions: No Action Letrozole 2.5 mg PO DAILY Nateglinide 60 mg PO DAILY Glimepiride [Amaryl] 1 mg PO BID Liraglutide [Victoza 2-Brian] 0.6 mg SQ DAILY Pantoprazole Sodium [Protonix] 40 mg PO QAM Aspirin 81 mg PO DAILY #90 chew Nitroglycerin Sl Tabs [Nitrostat] 0.4 mg SUBLINGUAL Q5M PRN #25 tab PRN Reason: Chest Pain Sacubitril/Valsartan [Entresto 24 mg-26 mg Tablet] 1 each PO BID #60 tablet Spironolactone [Aldactone] 25 mg PO DAILY #90 tab Atorvastatin [Lipitor] 40 mg PO DAILY #90 tab Metoprolol Succinate (ER) [Toprol XL] 50 mg PO QAM Multivit/Folic Acid/Vit K1 [One-A-Day Women's 50 Plus Tab] 1 each PO DAILY Discharge Medication List Letrozole 2.5 mg PO DAILY 12/04/17 [History] Nateglinide 60 mg PO DAILY 02/25/18 [History] Glimepiride [Amaryl] 1 mg PO BID 02/27/19 [History] Liraglutide [Victoza 2-Brian] 0.6 mg SQ DAILY 04/14/19 [History] Pantoprazole Sodium [Protonix] 40 mg PO QAM 04/16/19 [History] Aspirin 81 mg PO DAILY #90 chew 04/22/19 [Rx] Nitroglycerin Sl Tabs [Nitrostat] 0.4 mg SUBLINGUAL Q5M PRN #25 tab 04/22/19 [Rx] Sacubitril/Valsartan [Entresto 24 mg-26 mg Tablet] 1 each PO BID #60 tablet 05/26/19 [Rx] Atorvastatin [Lipitor] 40 mg PO DAILY #90 tab 05/27/19 [Rx] Spironolactone [Aldactone] 25 mg PO DAILY #90 tab 05/27/19 [Rx] Metoprolol Succinate (ER) [Toprol XL] 50 mg PO QAM 06/22/19 [History] Multivit/Folic Acid/Vit K1 [One-A-Day Women's 50 Plus Tab] 1 each PO DAILY 10/16/19 [History] Follow up Appointment(s)/Referral(s): [facility], [NON-STAFF] - Catina Leo MD [STAFF PHYSICIAN] - 1-2 Days Activity/Diet/Wound Care/Special Instructions: wear arturo wrap at all times may shower at [address] Discharge Disposition: HOME WITH HOME HEALTH SERVICES
[2019-10-28 11:11] LABS: Glucose,Whole Blood 252 mg/dL (75-99)
[2019-10-28 11:29] VITALS: BP 99/62; PULSE 68; RESP 17; TEMP 98.6
--- NOTE | 2019-10-28 14:05 | P.PN ---
Subjective This is a pleasant 73-year-old female past medical history significant for hypertension, diabetes mellitus, coronary artery disease, ischemic cardio myopathy, diabetes mellitus, dyslipidemia and systolic heart failure. She follows in the office with Dr. Davison. She was evaluated pre-operatively and deemed appropriate cardiac risk. She underwent left breast sentinel node mapping, mastectomy and axillary node dissection secondary to breast cancer. She is seen and examined sitting up in bed in no acute distress. She denies symptoms of chest pain, shortness of breath, dizziness or palpitations. She has some postsurgical discomfort with dressings and drains in place per Dr. Bimal Quiñonez. Blood pressure 99/62 heart rate 68 afebrile maintaining oxygen saturation on room air. Laboratory data reviewed, WBC 11.7, hemoglobin 11.7, platelets 243, sodium 133, potassium 5, creatinine 0.52. Daily cardiac medications include Aldactone 25 mg daily, entresto 24/26 mg daily, Toprol 50 mg in the morning, atorvastatin 40 mg daily and aspirin 81 mg daily. GENERAL: Well-appearing, well-nourished and in no acute distress. NECK: Supple without JVD or thyromegaly. LUNGS: Breath sounds clear to auscultation bilaterally. Respiration equal and unlabored. No wheezes, rales or rhonchi. HEART: Regular rate and rhythm without murmurs, rubs or gallops. S1 and S2 heard. Wound dressing and drains in place. EXTREMITIES: Normal range of motion, no edema. No clubbing or cyanosis. Peripheral pulses intact. ASSESSMENT Status post left mastectomy Dilated cardiomyopathy Chronic systolic heart failure, currently euvolemic Coronary artery disease Hypertension Diabetes mellitus Dyslipidemia PLAN Stable from a cardiac perspective for discharge when appropriate per surgery. Nurse Practitioner note has been reviewed, I agree with a documented findings and plan of care. Patient was seen and examined. Objective - Vital Signs Vital signs: Vital Signs Temp 98.6 F 10/28/19 11: Pulse 68 10/28/19 11:29 Resp 17 10/28/19 11:29 BP 99/62 10/28/19 11:29 Pulse Ox 94 L 10/28/19 11:29 Intake & Output 10/27/19 10/28/19 10/28/19 18:59 06:59 18:59 Intake Total 900 1100 Output Total 20 40 180 Balance 880 1060 -180 Weight 38.1 kg Intake: IV 900 Intake, IV Titration 900 Amount D5-0.45% NaCl with KCl 900 20Meq/l 1,000 ml @ 75 mls /hr IV .[id number] [facility] Rx#: [id number] Oral 200 Output: Drainage 40 180 Left Chest Drain 2 40 100 Left Chest drain 1 0 80 Estimated Blood Loss 20 Other: Voiding Method Toilet Toilet # Voids 2 - Labs CBC & Chem 7: 10/28/19 07:09 10/28/19 07:09 Labs: Abnormal Lab Results - Last 24 Hours (Table) 10/27/19 10/27/19 10/28/19 Range/Units 17:27 20:21 07:09 WBC 11.7 H (3.8-10.6) k/uL RBC 3.78 L (3.80-5.40) m/uL Sodium (137-145) mmol/L Glucose (74-99) mg/dL POC Glucose (mg/dL) 321 H 369 H (75-99) mg/dL 10/28/19 10/28/19 10/28/19 Range/Units 07:09 07:15 11:09 WBC (3.8-10.6) k/uL RBC (3.80-5.40) m/uL Sodium 133 L (137-145) mmol/L Glucose 184 H (74-99) mg/dL POC Glucose (mg/dL) 181 H 252 H (75-99) mg/dL
[2019-10-28 16:27] LABS: Hemoglobin A1C 10.5 % (4.0-6.0)
== END 2019-10-28 12:30 | disposition home health service (06) ==
LOC: OR 07:39 → 6PED 12:14 → 5NMEDONC 13:04 → OR 10-28 08:07
PROVIDERS: ADMIT Surgery; ATTEND Surgery
DX: C50.912 Malignant neoplasm of unspecified site of left female breast (principal); I11.0 Hypertensive heart disease with heart failure; I50.22 Chronic systolic (congestive) heart failure; E11.9 Type 2 diabetes mellitus without complications; K21.9 Gastro-esophageal reflux disease without esophagitis; R00.0 Tachycardia, unspecified; E78.5 Hyperlipidemia, unspecified; K59.00 Constipation, unspecified; Z78.0 Asymptomatic menopausal state; F17.210 Nicotine dependence, cigarettes, uncomplicated; H40.9 Unspecified glaucoma; I25.10 Atherosclerotic heart disease of native coronary artery without angina pectoris; I25.5 Ischemic cardiomyopathy; I42.0 Dilated cardiomyopathy; Z79.82 Long term (current) use of aspirin; Z79.84 Long term (current) use of oral hypoglycemic drugs; Z79.811 Long term (current) use of aromatase inhibitors; Z79.899 Other long term (current) drug therapy; Z92.21 Personal history of antineoplastic chemotherapy; Z92.3 Personal history of irradiation; Z85.3 Personal history of malignant neoplasm of breast; I25.2 Old myocardial infarction; Z80.9 Family history of malignant neoplasm, unspecified
CPT/HCPCS: 19307; 80048; 85027; 83036; 38792; G0378; A9520; J2250; J1644 ×2; J1100; J2405; J2001; J3010; J2370; J0330; J2704; Q9968; J1170 ×2; 88309

== ENCOUNTER → 2019-10-30 | Outpatient (CLI) | payer MEDICARE, OTHER ==
--- NOTE | 2019-10-30 09:06 | P.PN ---
Subjective Progress Note Date: 10/30/19 Principal diagnosis: Left mastectomy POD #3 Darlene is a 73-year-old white female status post left mastectomy postop day #3. She comes for postoperative evaluation. She has 2 BAIRON drains output is serosanguineous and both drains. Output is slightly greater than 40 mL for 24 hours and each drain at this time. The patient is doing well at this time without complaints. Objective - Constitutional General appearance: Present: thin - EENT Eyes: Present: EOMI ENT: Present: hearing grossly normal - Neck Neck: Present: normal ROM - Respiratory Details: Few crackles at bases - Cardiovascular Rhythm: regular Heart sounds: normal: S1, S2 - Musculoskeletal Musculoskeletal: Present: gait normal - Psychiatric Psychiatric: Present: A&O x's 3, appropriate affect, intact judgment & insight - Additional findings Additional findings: Incision clean and dry, mild erythema and inferior flap Assessment and Plan Assessment: Impression: 1. Postop day #3 left mastectomy with low axillary node dissection pathology pending 2. History of heart failure in the past 3. History of COPD/crackles at lung bases at this time Plan: 1. Dressing change 2. Leave BAIRON drains in place at this time 3. We'll start a course of Keflex secondary to mild erythema of the inferior flap CC: Dr. Bradford Wallis
[2019-10-30 09:57] VITALS: BP 129/80; PULSE 108; RESP 14; TEMP 97.8
== END | disposition home or self-care (01) ==
LOC: WWCWWP 08:53
PROVIDERS: ATTEND Surgery
DX: Z53.9 Procedure and treatment not carried out, unspecified reason (principal)

== ENCOUNTER → 2019-11-05 | Outpatient (CLI) | payer MEDICARE, OTHER ==
[2019-11-05 16:40] VITALS: PULSE 52; RESP 20; TEMP 98.2
--- NOTE | 2019-11-05 16:47 | P.PN ---
Progress Note - Text Progress Note Date: 11/05/19 Waleska is doing well postoperative. She has [address] The output from the drains are less than 40 mL for several days and overall and drain #2. #1 still has more output than that. Drainage is serous in nature. She has some mild ecchymotic skin changes at the staple line greatest in the axillary area. Physical exam: Incision: Clean and dry, some skin changes of ecchymosis/necrosis at the staple line greatest in the lateral aspect BAIRON drain #2 to be removed and procerus BAIRON #1 status. Next week Half of the brian have been removed Impression: 1. Pathology no residual cancer in the left breast 2. Patient doing well postoperatively Plan: 1. Follow up next week for removal of second BAIRON drain 2. Continue follow-up with medical oncology CC: DR. Bradford Wallis
== END | disposition home or self-care (01) ==
LOC: WWCWWP 16:21
PROVIDERS: ATTEND Surgery
DX: Z53.9 Procedure and treatment not carried out, unspecified reason (principal)

== ENCOUNTER → 2019-11-12 | Outpatient (CLI) | payer MEDICARE, OTHER ==
--- NOTE | 2019-11-12 15:12 | P.PN ---
Progress Note - Text Progress Note Date: 11/12/19 Waleska is doing well postoperative. She has [address] The output from the drain is still > 40 mL for several days. Drainage is serous in nature. She has some mild ecchymotic skin changes at the staple line greatest in the axillary area. Physical exam: Incision: Clean and dry, some skin changes of ecchymosis/necrosis at the staple line greatest in the lateral aspect BAIRON #[address] [place] to be removed. Impression: 1. Pathology no residual cancer in the left breast 2. Patient doing well postoperatively Plan: 1. Follow up two weeks for drain removal 2. Continue follow-up with medical oncology CC: DR. Bradford Wallis
[2019-11-12 15:46] VITALS: BP 143/81; PULSE 53; RESP 14; TEMP 98.4
== END | disposition home or self-care (01) ==
LOC: WWCWWP 14:44
PROVIDERS: ATTEND Surgery
DX: Z53.9 Procedure and treatment not carried out, unspecified reason (principal)

== ENCOUNTER → 2019-11-26 | Outpatient (CLI) | payer MEDICARE, OTHER ==
--- NOTE | 2019-11-26 10:33 | P.PN ---
Progress Note - Text Progress Note Date: 11/26/19 Waleska is doing well postoperative. She has [address] The output from the drain is 40 mL for several days. Drainage is serous in nature. She has some mild ecchymotic skin changes at the staple line greatest in the axillary area, these are healing well with no evidence of infection. She is complaining of any fever or chills. Physical exam: Incision: Clean and dry, some skin changes of ecchymosis/necrosis at the staple line greatest in the lateral aspect healing well with some scabbing at the sites BAIRON #1 to be removed Impression: 1. Pathology no residual cancer in the left breast 2. Patient doing well postoperatively 3. patient on letrazole Plan: 1. Follow up two weeks to rule out seroma and follow incision 2. Continue follow-up with medical oncology CC: Dr. Bradford Wallis
[2019-11-27 10:03] VITALS: BP 162/82; PULSE 115; RESP 14; TEMP 98.4
== END | disposition home or self-care (01) ==
LOC: WWCWWP 10:07
PROVIDERS: ATTEND Surgery
DX: Z53.9 Procedure and treatment not carried out, unspecified reason (principal)

== ENCOUNTER → 2020-01-06 | Outpatient (CLI) | payer MEDICARE, OTHER ==
--- NOTE | 2020-01-06 11:41 | BD ---
EXAMINATION TYPE: Axial Bone Density DATE OF EXAM: 01/06/2020 COMPARISON: 04.25.2017 CLINICAL HISTORY: 74 YR OLD FEMALE.....ICD-10 CODE: M89.09 OSTEOPENIA, Z79.890 POST DAVON Height: 59 Weight: 87 FRAX RISK QUESTIONS: Secondary Osteoporosis: YES 1. Type 1 Diabetes: YES Current Tobacco Use: YES RISK FACTORS HISTORY OF: Postmenopausal woman: YES, AT AGE 50s Frequent falls: FRAIL, NEEDS HELP Poor Health: FRAIL Hyperparathyroidism: NO Adrenal Insufficiency: NO MEDICATIONS: Osteoporosis Medications: YES, BONIVA FOR ABOUT 7 YRS Additional Medications: BP MEDS, HX OF CHEMO AND RADIATION, DIABETIC MEDS AND INSULIN, REFLUX MEDS IN PAST, Additional History: LT BREAST CANCER, RECURRENCE ON SAME BREAST 2019, MASTECTOMY 2019, DIABETIC, HYP ERTENSION EXAM MEASUREMENTS: Bone mineral densitometry was performed using the [employer] System. Bone mineral density as measured about the Lumbar spine is: ----- L1-L4(G/cm2): 0.929 T Score Values are as follows: ----- L1: -1.3 ----- L2: -2.1 ----- L3: -2.6 ----- L4: -2.4 ----- L1-L4: -2.1 Bone mineral density has: Decreased -2.9% since study of: 04.25.2017 Bone mineral density about the R hip (g/cm2): 0.837 Bone mineral density about the L hip (g/cm2): 0.844 T Score values are as follows: -----R Neck: -0.9 -----L Neck: -1.2 -----R Total: -1.4 -----L Total: -1.3 Bone mineral density has: Decreased -2.8% since study of: 04.25.2017 FRAX%s: THERE IS A 4.5% CHANCE FOR A MAJOR OSTEOPOROTIC FX AND A 1.1% FOR HIP....PROBABILITY FOR FX IN 10 YRS TIME IMPRESSION: Osteopenia NOTE: T-SCORE=SD OF THE YOUNG ADULT MEAN.
== END | disposition home or self-care (01) ==
LOC: RADBDWWP 09:59
PROVIDERS: ATTEND Internal Medicine Hematology & Oncology
DX: M85.80 Other specified disorders of bone density and structure, unspecified site (principal); Z79.890 Hormone replacement therapy; C50.919 Malignant neoplasm of unspecified site of unspecified female breast
CPT/HCPCS: 77080

== ENCOUNTER → 2020-01-29 | Outpatient (CLI) | payer MEDICARE, OTHER ==
[2020-01-29 09:00] VITALS: BP 161/82; PULSE 88; RESP 18; TEMP 98.1
--- NOTE | 2020-01-29 09:57 | P.PN ---
Subjective Progress Note Date: 01/29/20 Principal diagnosis: left breast cancer and left mastectomies Waleska approximately 8 years ago underwent a lumpectomy and radiation therapy in [place] for that she states is a stage II left breast cancer. She underwent a left breast biopsy here in January 2019 which revealed atypia. She subsequently on [id number] underwent a needle local excisional biopsy of this area in the operating room. 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 Approximately 48 hours later she developed some shortness of breath and was admitted to the hospital. At that time she was anticoagulated and developed a hematoma. She underwent a cardiac cath which did not reveal anything necessitating stenting. Her case was presented at tumor board and it was recommended she undergo a left mastectomy which was preformed on 10-27-19. She is doing well at this time, the skin some weight. She does have a scab under her left arm which she states is itching. She is not getting any hormonal or radiation therapy at this time. Right breast mammogram performed on /this was benign BIRADS 2 Past surgical history: Left breast lumpectomy and sentinel node biopsy approximately 8 years ago Left breast excisional biopsy 04-14-19 Medical history: 1. Low ejection fraction 2. Diabetes Social history: Smoke: 5 cigarettes per day Alcohol: Negative Drugs: Negative - Constitutional Constitutional: Denies chills, Denies fever - EENT Eyes: denies blurred vision, denies pain Ears: deny: decreased hearing, tinnitus Ears, nose, mouth and throat: Denies headache, Denies sore throat - Breasts Breasts: bilateral: as per HPI - Cardiovascular Comment: Low ejection fraction - Respiratory Comment: Smoker/ 2cigarettes/day - Gastrointestinal Comment: history of ulcers - Genitourinary (Female) Genitourinary: Reports as per HPI, Denies dysuria, Denies hematuria - Menstruation Menstruation: Reports postmenopausal - Musculoskeletal Musculoskeletal: Reports muscle cramps - Integumentary Comment: Left breast at prior lumpectomy site with some drainage, excoriation of the lateral aspect - Neurological Neurological: Denies numbness, Denies weakness - Psychiatric Psychiatric: Denies anxiety, Denies depression - Endocrine Comment: Diabetes - Hematologic/Lymphatic Comment: baby aspirin - Allergic/Immunologic Allergic/Immunologic: Reports as per HPI Objective - Vital Signs Vital signs: Vital Signs Temp 98.1 F 01/29/20 08:58 Pulse 88 01/29/20 08:58 Resp 18 01/29/20 08:58 BP 161/82 01/29/20 08:58 Pulse Ox 100 01/29/20 08:58 Intake & Output 01/28/20 01/29/20 01/29/20 18:59 06:59 18:59 Weight 41.73 kg - Exam BMI 19.2 - Constitutional General appearance: Present: cooperative - EENT Eyes: Present: EOMI ENT: Present: hearing grossly normal - Neck Neck: Present: normal ROM - Respiratory Respiratory: bilateral: CTA - Cardiovascular Rhythm: regular Heart sounds: normal: S1, S2 - Gastrointestinal General gastrointestinal: Present: soft - Integumentary Integumentary Comment(s): skin incision clean and dry, well healed, no evidence of any recurrent cancer Integumentary: Present: normal turgor - Musculoskeletal Musculoskeletal: Present: gait normal - Psychiatric Psychiatric: Present: A&O x's 3, appropriate affect, intact judgment & insight - Additional findings Additional findings: Breast exam: Right breast: Multi-positional exam no dominant masses or nodules of concern Right axilla: No adenopathy of concern Left chest wall: Incision clean and dry well-healed Left axilla: No adenopathy of concern Assessment and Plan Assessment: Impression: 1. Patient status post mastectomy for recurrent cancer after treatment for stage II left breast cancer 2. No evidence of metastatic or recurrent cancer 3. Fibrocystic disease right breast 4. Smoker/decreasing the amount of cigarettes she is smoking 5. Low ejection fraction 6. Diabetes 7. Itching at incision site Plan: 1. Follow up here in 4 months time for physician exam 2. Continue to follow with medical oncology 3. Follow with medicine 4. Patient encouraged to stop smoking 5. Repeat right breast mammogram in October 2020 6. Patient is going to use moisturizing cream on the chest wall at the incision site on the left, additionally she is going to use [id number] Benadryl if itching continues she will call us Cc: Dr. Bradford Wallis encounter 25 minutes, > 50 % of time in planning and counseling
== END | disposition home or self-care (01) ==
LOC: WWCWWP 08:47
PROVIDERS: ATTEND Surgery
DX: Z53.9 Procedure and treatment not carried out, unspecified reason (principal)

== ENCOUNTER → 2020-06-02 | Outpatient (CLI) | payer MEDICARE, OTHER ==
[2020-06-02 09:55] VITALS: BP 120/73; PULSE 103; RESP 18; TEMP 98.3
--- NOTE | 2020-06-02 10:22 | P.PN ---
Subjective Progress Note Date: 06/02/20 Principal diagnosis: left breast mastectomy [place] approximately 8 years ago underwent a lumpectomy and radiation therapy in [place] for that she states is a stage II left breast cancer. She underwent a left breast biopsy here in January 2019 which revealed atypia. She bass bsequently on [id number] underwent a needle local excisional biopsy of this area in the operating room. 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 Approximately 48 hours later she developed some shortness of breath and was admitted to the hospital. At that time she was anticoagulated and developed a hematoma. She underwent a cardiac cath which did not reveal anything necessitating stenting. Her case was presented at tumor board and it was recommended she undergo a left mastectomy which was preformed on 10-27-19. She is doing well at this time, the skin some weight. She does have a scab under her left arm which she states is itching. She is not getting any hormonal or radiation therapy at this time. She initially underwent 4 cycles of dose dense before meals followed by 4 cycles of Taxol given with Herceptin. After completion of the chemotherapy she had radiation and was then started on letrazole in the fall of 2009. Herceptin was continued her 1 year therapy completed in November 2010. Since that time she had been in observation until the most recent left breast diagnosis, in January 2019. She was started on Prolia on 06/18/2013 as a bone density revealed osteoporosis. Right breast mammogram performed on [id number] this was benign BIRADS 2 Past surgical history: Left breast lumpectomy and sentinel node biopsy approximately 8 years ago Left breast excisional biopsy 04-14-19 Medical history: 1. Low ejection fraction 2. Diabetes Social history: Smoke: 5 cigarettes per day Alcohol: Negative Drugs: Negative - Constitutional Constitutional: Denies chills, Denies fever - EENT Eyes: denies blurred vision, denies pain Ears: deny: decreased hearing, tinnitus Ears, nose, mouth and throat: Denies headache, Denies sore throat - Breasts Breasts: bilateral: as per HPI - Cardiovascular Comment: Low ejection fraction - Respiratory Comment: Smoker/ 2cigarettes/day - Gastrointestinal Comment: history of ulcers - Genitourinary (Female) Genitourinary: Reports as per HPI, Denies dysuria, Denies hematuria - Menstruation Menstruation: Reports postmenopausal - Musculoskeletal Musculoskeletal: Reports muscle cramps - Integumentary Comment: Left breast at prior lumpectomy site with some drainage, excoriation of the lateral aspect - Neurological Neurological: Denies numbness, Denies weakness - Psychiatric Psychiatric: Denies anxiety, Denies depression - Endocrine Comment: Diabetes - Hematologic/Lymphatic Comment: baby aspirin - Allergic/Immunologic Allergic/Immunologic: Reports as per HPI Objective - Vital Signs Vital signs: Vital Signs Temp 98.3 F 06/02/20 09:52 Pulse 103 H 06/02/20 09:52 Resp 18 06/02/20 09:52 BP 120/73 06/02/20 09:52 Pulse Ox 96 06/02/20 09:52 Intake & Output 06/01/20 06/02/20 06/02/20 18:59 06:59 18:59 Weight 41.73 kg - Constitutional General appearance: Present: thin - EENT Eyes: Present: EOMI ENT: Present: hearing grossly normal - Neck Neck: Present: normal ROM - Respiratory Respiratory: bilateral: CTA - Cardiovascular Rhythm: regular Heart sounds: normal: S1, S2 - Gastrointestinal General gastrointestinal: Present: normal bowel sounds, soft - Integumentary Integumentary: Present: normal turgor - Musculoskeletal Musculoskeletal: Present: gait normal - Psychiatric Psychiatric: Present: A&O x's 3, appropriate affect, intact judgment & insight - Additional findings Additional findings: breast exam: BRA: 36C inspection: Right breast. 3 ptosis, left breast status post mastectomy Palpation: Right breast: Multi-positional exam with no dominant masses or nodules of concern fibrocystic changes Axilla: No adenopathy of concern Left chest wall: Well-healed scar no evidence of recurrent cancer Assessment and Plan Assessment: Impression: 1. Patient status post left breast mastectomy had been treated for a stage II left breast cancer in [place] in approximately 2010. She had undergone before meals, Herceptin and Taxol as well as radiation therapy. She then developed recurrent disease and underwent a left breast mastectomy. The patient has no evidence of recurrent cancer at this time and is on left resolved 2. Low ejection fraction 3. Diabetes Plan: 1. Continue letrazole 2. Right breast mammogram in October 2020 3. Follow-up here after the mammogram Cc: Dr. Brdaford Wallis encounter 20 minutes, > 50% of time in planning and counselling
== END | disposition home or self-care (01) ==
LOC: WWCWWP 09:39
PROVIDERS: ATTEND Surgery
DX: Z53.9 Procedure and treatment not carried out, unspecified reason (principal)

== ENCOUNTER → 2020-06-20 | Outpatient (CLI) | payer MEDICARE, OTHER ==
--- NOTE | 2020-06-20 13:27 | XR ---
Lumbar spine HISTORY: Back pain 3 views of lumbar spine Lumbar vertebral bodies show preserved height, alignment, bone mineralization is reduced. There is so me loss of disc height at L3-4, L4-5 and L5-S1, multilevel spondylosis is present. Sclerosis is prese nt in the posterior elements. After describing vascular calcifications are noted incidentally, there are overlying artifacts. There is lucency through the sacrum with some sclerotic density noted on the coned-down view. IMPRESSION: Sacral fracture with healing, correlate for appropriate history, consider bone scan as in dicated. Mild degenerative disc disease, facet arthropathy, osteopenia.
== END | disposition home or self-care (01) ==
LOC: RADXRMAIN 12:01
PROVIDERS: ATTEND Nurse Practitioner
DX: M51.36 Other intervertebral disc degeneration, lumbar region (principal); M47.816 Spondylosis without myelopathy or radiculopathy, lumbar region; M85.88 Other specified disorders of bone density and structure, other site; S32.10XA Unspecified fracture of sacrum, initial encounter for closed fracture
CPT/HCPCS: 72100

== ENCOUNTER → 2020-07-12 | Outpatient (CLI) | payer MEDICARE, OTHER ==
--- NOTE | 2020-07-12 10:18 | MR ---
EXAMINATION TYPE: MR lumbar spine wo con DATE OF EXAM: 07/12/2020 COMPARISON: X-ray 06/20/2020 HISTORY: Left sided lower back pain down thru left hip into left leg. Difficulty ambultating. Had a fall 1 year ago. TECHNIQUE: T1 and T2 axial and sagittal images of the lumbar spine are submitted. FINDINGS: There is no abnormal signal seen within the visualized spinal cord or paraspinal soft tissu es. There appears to be a chronic fracture involving the sacrococcygeal junction. No active marrow ed nicole. Nonspecific thickening to the left adrenal gland could be correlated with follow-up CT scan. At L1-2 there is no disc herniation or canal stenosis. No foraminal encroachment. At L2-3 there is no disc herniation or canal stenosis. No foraminal encroachment. At L3-4 there is diffuse disc bulging centrally. Hypertrophic changes of the facets. Neural foramina remain patent. At L4-5 there is degenerative disc disease with broad-based disc herniation greater paracentrally to the left with suspected nerve root contact. Moderate to severe left sided foraminal encroachment and moderate right foraminal encroachment. Hypertrophic facet arthropathy and ligamentum flavum hypertrop hy contribute to central canal stenosis. At L5-S1 there is no disc herniation or canal stenosis. No foraminal encroachment. IMPRESSION: 1. There is a large broad-based central left paracentral disc herniation L4-L5 with contact of the le ft nerve root and central canal stenosis. Bilateral foraminal encroachment. 2. Disc bulging L3-L4 with mild effacement of thecal sac but no focal herniation. 3. There appears to be dilation of the extrahepatic common bile duct. There also is thickening of the left adrenal gland. Consider follow-up CT scan of the abdomen.
== END | disposition home or self-care (01) ==
LOC: RADMRIMAIN 08:40
PROVIDERS: ATTEND Orthopaedic Surgery Orthopaedic Surgery of the Spine
DX: M51.26 Other intervertebral disc displacement, lumbar region (principal); M48.061 Spinal stenosis, lumbar region without neurogenic claudication
CPT/HCPCS: 72148

== ENCOUNTER → 2020-09-28 | Outpatient (CLI) | payer MEDICARE, OTHER ==
[2020-09-28 14:57] LABS: African American GFR (CKD) >90 (>60 ml/min/1.73 sqM); Blood Urea Nitrogen 18 mg/dL (7-17); Non-African American GFR(CKD) 88 (>60 ml/min/1.73 sqM)
--- NOTE | 2020-09-29 07:53 | CT ---
EXAMINATION TYPE: CT abdomen pelvis w con DATE OF EXAM: 09/28/2020 COMPARISON: CT scan of abdomen and pelvis from 02/25/2018. HISTORY: Disease of biliary tract, MRI shows enlarged CBD and LT adrenal CT DLP: 321.90 mGycm Automated exposure control for dose reduction was used. TECHNIQUE: Helical acquisition of images was performed from the lung bases through the pelvis. CONTRAST: Performed with Oral Contrast and with IV Contrast, patient injected with 100 mL of Isovue 300. FINDINGS: LUNG BASES: No significant abnormality is appreciated. LIVER/GB: There is redemonstration of intrahepatic ductal dilatation and common bile duct dilatation as seen on prior examination measuring up to 10 mm and is unchanged. No pancreatic duct dilatation se en. No pancreatic mass is apparent. No gallstones are seen. PANCREAS: The pancreatic duct dilatation. SPLEEN: No significant abnormality is seen. ADRENALS: Left adrenal gland is enlarged measuring up to 1.6 cm and this appears slightly increased c ompared to prior CT scan from 2018 at which time it measured 1.4 cm. KIDNEYS: No significant abnormality is seen. FREE AIR: No free air is visualized. RETROPERITONEAL ADENOPATHY: None visualized REPRODUCTIVE ORGANS: No significant abnormality is seen URINARY BLADDER: No significant abnormality is seen. PELVIC ADENOPATHY: None visualized. OSSEOUS STRUCTURES: Disc bulge at L4-5 level is redemonstrated. BOWEL: No significant abnormality is seen. Mild diverticulosis. IMPRESSION: 1. INTRAHEPATIC DUCT DILATATION AND SLIGHT COMMON BILE DUCT DILATATION, ESSENTIALLY UNCHANGED COMPARE D TO PRIOR EXAMINATION FROM 2018. 2. MILD DIVERTICULOSIS. 3. MILD DISC BULGE AT L4-5 LEVEL. 4. LEFT ADRENAL GLAND PROMINENT MEASURING 1. 6 CM COMPARED TO 1.4 CM ON PRIOR EXAMINATION.
== END | disposition home or self-care (01) ==
LOC: RADCTMAIN 13:43
PROVIDERS: ATTEND Family Medicine
DX: K83.8 Other specified diseases of biliary tract (principal); K57.30 Diverticulosis of large intestine without perforation or abscess without bleeding
CPT/HCPCS: 82565; 84520; 74177; 36415; Q9967

== ENCOUNTER → 2020-10-24 | Outpatient (CLI) | payer MEDICARE, OTHER ==
--- NOTE | 2020-10-26 10:59 | MM ---
Reason for exam: screening (asymptomatic). Last mammogram was performed 1 year ago. History: Patient is postmenopausal and has history of breast cancer at age 73. Malignant US breast localization LT of the right breast, April 14, 2019. Benign US biopsy breast VAD LT of the left breast, January 20, 2019. Lumpectomy of the left breast, 2011. Chemotherapy, 2011. Radiation therapy, 2011. Taking antineoplastic for 7 years beginning at age 65. Physical Findings: A clinical breast exam by your physician is recommended on an annual basis and results should be correlated with mammographic findings. MG 3D Scr Eleazar Unilateral W/Cad CC and MLO view(s) were taken of the right breast. Prior study comparison: October 20, 2019, right breast MG 3d diag mammo w/cad RT. April 14, 2019, left breast MG diagnostic mammo LT wo CAD. The breast tissue is heterogeneously dense. This may lower the sensitivity of mammography. Finding: There are stable coarse heterogeneous, grouped/clustered calcifications in the right breast. No significant changes in finding since October 20, 2019 and April 14, 2019. ASSESSMENT: Benign, BI-RAD 2 RECOMMENDATION: Routine screening mammogram of both breasts in 1 year.
== END | disposition home or self-care (01) ==
LOC: RADMAMWWP 10:01
PROVIDERS: ATTEND Surgery
DX: Z12.31 Encounter for screening mammogram for malignant neoplasm of breast (principal); Z85.3 Personal history of malignant neoplasm of breast
CPT/HCPCS: 77067

== ENCOUNTER → 2020-10-27 | Outpatient (CLI) | payer MEDICARE, OTHER ==
[2020-10-27 09:00] VITALS: BP 123/74; PULSE 78; RESP 18; TEMP 98.1
--- NOTE | 2020-10-27 09:24 | P.PN ---
Subjective Progress Note Date: 10/27/20 left breast mastectomy [place] approximately 8 years ago underwent a lumpectomy and radiation therapy in [place] for a stage II left breast cancer. She underwent a left breast biopsy here in January 2019 which revealed atypia. She subsequently on [id number] underwent a needle local excisional biopsy of this area in the operating room. 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 Approximately 48 hours later she developed some shortness of breath and was admitted to the hospital. At that time she was anticoagulated and developed a hematoma. She underwent a cardiac cath which did not reveal anything necessitating stenting. Her case was presented at tumor board and it was recommended she undergo a left mastectomy which was preformed on 10-27-19. She is doing well at this time. She does have a scab under her left arm which she states is itching. She is not getting any hormonal or radiation therapy at this time. She initially underwent 4 cycles of chemotherpay and 4 cycles of Taxol given with Herceptin. After completion of the chemotherapy she had radiation and was then started on letrazole in the fall of 2009. Herceptin was continued her 1 year therapy completed in November 2010. Since that time she had been in observation until the most recent left breast diagnosis, in January 2019. She was started on Prolia on 06/18/2013 as a bone density revealed osteoporosis. The patient at this time has no complaints of lumps masses or nodules in her right breast. She has no complaints related to her right chest wall. right breast mammogram on was benign BIRAD 2. Of significance is the fact that the patient fell last summer and fractured her left hip. She now ambulates with a cane. She did not have any surgery on this. Past surgical history: Left breast lumpectomy and sentinel node biopsy approximately 8 years ago Left breast excisional biopsy 04-14-19 Medical history: 1. Low ejection fraction 2. Diabetes 3. left hip fracture Social history: Smoke: 5 cigarettes per day Alcohol: Negative Drugs: Negative - Constitutional Constitutional: Denies chills, Denies fever - EENT Eyes: denies blurred vision, denies pain Ears: deny: decreased hearing, tinnitus Ears, nose, mouth and throat: Denies headache, Denies sore throat - Breasts Breasts: bilateral: as per HPI - Cardiovascular Comment: Low ejection fraction - Respiratory Comment: Smoker/ 2cigarettes/day - Gastrointestinal Comment: history of ulcers - Genitourinary (Female) Genitourinary: Reports as per HPI, Denies dysuria, Denies hematuria - Menstruation Menstruation: Reports postmenopausal - Musculoskeletal Musculoskeletal: Reports muscle cramps - Integumentary Comment: Left breast at prior lumpectomy site with some drainage, excoriation of the lateral aspect - Neurological Neurological: Denies numbness, Denies weakness - Psychiatric Psychiatric: Denies anxiety, Denies depression - Endocrine Comment: Diabetes - Hematologic/Lymphatic Comment: baby aspirin - Allergic/Immunologic Allergic/Immunologic: Reports as per HPI Objective - Vital Signs Vital signs: Vital Signs Temp 98.1 F 10/27/20 08:58 Pulse 78 10/27/20 08:58 Resp 18 10/27/20 08:58 BP 123/74 10/27/20 08:58 Pulse Ox 98 10/27/20 08:58 Intake & Output 10/26/20 10/27/20 10/27/20 18:59 06:59 18:59 Weight 44.452 kg - Exam BMI 20.5 - Constitutional General appearance: Present: cooperative - EENT Eyes: Present: EOMI ENT: Present: hearing grossly normal - Neck Neck: Present: normal ROM - Respiratory Respiratory: bilateral: CTA - Cardiovascular Rhythm: regular Heart sounds: normal: S1, S2 - Integumentary Integumentary: Present: normal turgor - Musculoskeletal Musculoskeletal Comment(s): using a cane broke left hip after a fall - Psychiatric Psychiatric: Present: A&O x's 3, appropriate affect, intact judgment & insight - Additional findings Additional findings: Breast examination: Inspection: Patient status post left mastectomy, right breast grade 3 ptosis Palpation: Right breast: Multi-positional exam fibrocystic changes, no dominant masses or nodules of concern right axilla: Small shotty adenopathy non-worrisome Left chest wall: No evidence of recurrent cancer Left axilla: No adenopathy of concern Assessment and Plan Assessment: Impression: 1. Patient status post left mastectomy had been treated for stage II left breast cancer [place] in approximately 2010. She underwent chemotherapy and Herceptin as well as radiation therapy. She developed recurrent disease and underwent a left breast mastectomy patient has no evidence of recurrent cancer at this time.She is on Letrazole. 2. Low ejection fraction 3. Diabetes 4. Patient fell last year and uses a cane now for ambulation Plan: 1. Repeat right breast mammogram in October 2021 2. Shoddy adenopathy follow up in 4 months for repeat examination 3. Continue letrozole 4. Follow up sooner if any questions or concerns Cc: Dr. Bradford Wallis encounter 20 minutes time spent in examination, review, and counselling.
== END ==
LOC: WWCWWP 08:50
PROVIDERS: ATTEND Surgery
DX: Z08 Encounter for follow-up examination after completed treatment for malignant neoplasm (principal); E11.9 Type 2 diabetes mellitus without complications; F17.210 Nicotine dependence, cigarettes, uncomplicated; Z90.12 Acquired absence of left breast and nipple; Z85.3 Personal history of malignant neoplasm of breast; Z79.811 Long term (current) use of aromatase inhibitors

== ENCOUNTER → 2022-02-09 | Outpatient (CLI) | payer MEDICARE, OTHER ==
[2022-02-09 13:22] VITALS: BP 158/82; PULSE 94; RESP 12; TEMP 98.1
--- NOTE | 2022-02-09 13:48 | P.PN ---
Subjective Progress Note Date: 02/09/22 left breast mastectomy [place] approximately 9 years ago underwent a lumpectomy and radiation therapy in [place] for a stage II left breast cancer. She underwent a left breast biopsy here in January 2019 which revealed atypia. She subsequently on [id number] underwent a needle local excisional biopsy of this area in the operating room. 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 Approximately 48 hours later she developed some shortness of breath and was admitted to the hospital. At that time she was anticoagulated and developed a hematoma. She underwent a cardiac cath which did not reveal anything necessitating stenting. Her case was presented at tumor board and it was recommended she undergo a left mastectomy which was preformed on 10-27-19. She initially underwent 4 cycles of chemotherpay and 4 cycles of Taxol given with Herceptin. After completion of the chemotherapy she had radiation and was then started on letrazole in the fall of 2009. Herceptin was continued her 1 year therapy completed in November 2010. Since that time she had been in observation until the most recent left breast diagnosis, in January 2019. She was started on Prolia on 06/18/2013 as a bone density revealed osteoporosis. The patient at this time has no complaints of lumps masses or nodules in her right breast. She has no complaints related to her right chest wall. right breast mammogram on was benign BIRAD 2. She is complaining of pain in her left upper arm, from her shoulder down since her surgery. On examination there is a small soft tissue nodule in the upper outer aspect of the left chest wall, patient states it has been there for some time and is not changed. It is not painful. Note from Dr. [facility] onc[facility] 12-28-21 reviewed. They do not feel the need to follow her at this time. Past surgical history: Left breast lumpectomy and sentinel node biopsy approximately 8 years ago Left breast excisional biopsy 04-14-19 Medical history: 1. Low ejection fraction 2. Diabetes 3. left hip fracture Social history: Smoke: 5 cigarettes per day Alcohol: Negative Drugs: Negative - Constitutional Constitutional: Denies chills, Denies fever - EENT Eyes: denies blurred vision, denies pain Ears: deny: decreased hearing, tinnitus Ears, nose, mouth and throat: Denies headache, Denies sore throat - Breasts Breasts: bilateral: as per HPI - Cardiovascular Comment: Low ejection fraction - Respiratory Comment: Smoker/ 2cigarettes/day - Gastrointestinal Comment: history of ulcers - Genitourinary (Female) Genitourinary: Reports as per HPI, Denies dysuria, Denies hematuria - Menstruation Menstruation: Reports postmenopausal - Musculoskeletal Musculoskeletal: Reports muscle cramps - Integumentary Comment: Left breast at prior lumpectomy site with some drainage, excoriation of the lateral aspect - Neurological Neurological: Denies numbness, Denies weakness - Psychiatric Psychiatric: Denies anxiety, Denies depression - Endocrine Comment: Diabetes - Hematologic/Lymphatic Comment: baby aspirin - Allergic/Immunologic Allergic/Immunologic: Reports as per HPI Objective - Vital Signs Vital signs: Vital Signs Temp 98.1 F 02/09/22 13:18 Pulse 94 02/09/22 13:18 Resp 12 02/09/22 13:18 BP 158/82 02/09/22 13:18 Pulse Ox 99 02/09/22 13:18 FiO2 Intake & Output 02/08/22 02/09/22 02/09/22 18:59 06:59 18:59 Weight 43.998 kg - Constitutional General appearance: Present: cooperative - EENT Eyes: Present: EOMI ENT: Present: hearing grossly normal - Neck Neck: Present: normal ROM - Respiratory Respiratory: bilateral: CTA - Cardiovascular Rhythm: regular Heart sounds: normal: S1, S2 - Integumentary Integumentary: Present: normal turgor - Musculoskeletal Musculoskeletal: Present: gait normal - Psychiatric Psychiatric: Present: A&O x's 3, appropriate affect, intact judgment & insight - Additional findings Additional findings: Breast Exam: Bra: 32C Inspection: Left chest wall incision clean and dry well-healed, grade 3 ptosis right breast Palpation: Right breast: Multiple positional exam no dominant masses or nodules of concern Right axilla: No adenopathy of concern Left chest wall: Incision clean and dry and well healed, in the upper aspect of the right chest wall superior to the incision there is approximately a 7 mm area of nodularity Left axilla: No adenopathy of concern Patient complains of discomfort in the left shoulder with extension down to the arm ending at the elbow. Assessment and Plan Assessment: Impression: Soft tissue nodule left chest wall Right breast no dominant masses or nodules of concern Right breast mammogram due to Patient complaining of discomfort in her left shoulder Low ejection fraction Diabetes Plan: Excisional biopsy of lesion left chest wall X-ray of left shoulder Right breast mammogram medical and cardiac clearance CC: Dr. Wallis
== END ==
LOC: WWCWWP 12:51
PROVIDERS: ATTEND Surgery
DX: Z85.3 Personal history of malignant neoplasm of breast (principal); Z08 Encounter for follow-up examination after completed treatment for malignant neoplasm; E11.9 Type 2 diabetes mellitus without complications; R22.2 Localized swelling, mass and lump, trunk; F17.210 Nicotine dependence, cigarettes, uncomplicated; Z90.12 Acquired absence of left breast and nipple; Z98.890 Other specified postprocedural states

== ENCOUNTER → 2022-02-12 | Outpatient (CLI) | payer MEDICARE, OTHER ==
--- NOTE | 2022-02-12 09:04 | MM ---
Reason for Exam: Hx of breast cancer, mastectomy. Last mammogram was performed 1 year(s) and 3 month(s) ago. Patient History: Menarche at age 15. First Full-Term at age 24. Postmenopausal. Breast cancer, left, age 73. 2018, Mastectomy on the Left side. 2011, Lumpectomy on the Left side. 04/14/2019, Malignant Core Biopsy on the right side. 01/20/2019, Benign Core Biopsy on the left side. 2011, Radiation Therapy. 2011, Chemotherapy. Prior Study Comparison: 04/14/2019 Left Diagnostic Mammogram, [facility]. 10/20/2019 Right Diagnostic Mammogram, [facility]. 10/24/2020 Bilateral Screening Mammogram, [facility]. Tissue Density: Right: The breast tissue is extremely dense which could obscure a lesion on mammography. Findings: Analyzed By CAD. Unchanged coarse calcifications posterior upper-outer quadrant right breast. No significant change from prior exams. Overall Assessment: Incomplete: need additional imaging evaluation, BI-RAD 0 Management: Diagnostic Breast Ultrasound of the right breast. Given the extremely dense breast tissue and patient's history of breast cancer on the contralateral side. Electronically signed and approved by: Roni Schofield M.D. Radiologist
--- NOTE | 2022-02-12 09:55 | USB ---
Reason for Exam: Mammographic abnormality. Patient History: Menarche at age 15. First Full-Term at age 24. Postmenopausal. Breast cancer, left, age 73. 2018, Mastectomy on the Left side. 2011, Lumpectomy on the Left side. 04/14/2019, Malignant Core Biopsy on the right side. 01/20/2019, Benign Core Biopsy on the left side. 2011, Radiation Therapy. 2011, Chemotherapy. Technique: Method: Whole Breast Handheld. Prior Study Comparison: 04/14/2019 Left Diagnostic Mammogram, [facility]. 10/20/2019 Right Diagnostic Mammogram, [facility]. 10/24/2020 Bilateral Screening Mammogram, [facility]. Findings: The whole breast of the right breast, the axilla of the right breast and the retroareolar of the right breast were scanned. A complete US of all four quadrants of the breast and retro-areolar region were reviewed. No solid or cystic masses are identified.. No axillary lymphadenopathy. Dense tissues present throughout. Overall Assessment: Negative, BI-RAD 1 Management: Diagnostic Mammogram of the right breast in 1 year. 1. Patient should continue monthly self breast exams. 2. A clinical breast exam by your physician is recommended on an annual basis. 3. This exam should not preclude additional follow-up of suspicious palpable abnormalities. Electronically signed and approved by: Roni Schofield M.D. Radiologist
--- NOTE | 2022-02-12 10:30 | XR ---
EXAMINATION TYPE: XR shoulder complete LT DATE OF EXAM: 02/12/2022 COMPARISON: NONE HISTORY: Pain TECHNIQUE: Three views are submitted. FINDINGS: The osseous structures are intact. There is no acute fracture or dislocation. Diffuse osteopenia wit h moderate AC joint narrowing. IMPRESSION: 1. AC joint arthropathy.
== END | disposition home or self-care (01) ==
LOC: RADMAMWWP 08:28
PROVIDERS: ATTEND Surgery
DX: M19.012 Primary osteoarthritis, left shoulder (principal); Z85.3 Personal history of malignant neoplasm of breast; Z78.0 Asymptomatic menopausal state
CPT/HCPCS: 73030; 77065; 76641; G0279; 77061

== ENCOUNTER 2022-03-06 07:23 | Day surgery (SDC) | payer MEDICARE, OTHER ==
[~2022-03-06 07:23] MED LIST changes: -DEXAMETHASONE SOD PHOSPHATE 10 MG/ML 1 ML VIAL IV ONE; +DEXAMETHASONE SOD PHOSPHATE 4 MG/ML 1 ML VIAL IV ONE; -HEPARIN SODIUM,PORCINE 5,000 UNIT/ML 1 ML VIAL SQ ONE; +HEPARIN SODIUM,PORCINE/PF 5,000 UNIT/0.5 ML SYRINGE SQ PRN; +LACTATED RINGERS 1,000 ML IV SCH; -LIDOCAINE 1% (10MG/ML) FOR IV START INTRADERMA PRN; -MIDAZOLAM 2 MG/2 ML VIAL IV PRN; -Pre Op ABX Message 1 EACH MISC MISCELLANE ONE
[2022-03-06 08:01] VITALS: RESP 16; TEMP 97.4
[2022-03-06 08:10] LABS: Glucose,Whole Blood 160 mg/dL (70-110)
[2022-03-06] MEDS ORDERED: PROPOFOL 10 MG/ML 20 ML VIAL IV ONE (08:34)
[2022-03-06] MEDS ORDERED: MIDAZOLAM 2 MG/2 ML VIAL ONE (08:34)
[2022-03-06] MEDS ORDERED: LIDOCAINE (PF) 10 MG/ML 2 ML VIAL SQ ONE ×2 (09:08)
--- NOTE | 2022-03-06 09:19 | P.OP ---
Date of Procedure: 03/06/22 Preoperative Diagnosis: rule out Chest wall recurrence of cancer left chest wall Postoperative Diagnosis: Same Procedure(s) Performed: Excision nodular left chest wall Anesthesia: DUA Surgeon: Catina Leo Estimated Blood Loss (ml): 1 IV fluids (ml): 400 Pathology: other Condition: stable (Tissue left chest wall) Indications for Procedure: Soft tissue nodule left chest wall rule out recurrent malignancy Operative Findings: Nodule left chest wall approximately 8 mm x 8 mm Description of Procedure: Procedure(s) Performed: Wide excision nodule left chest wall Anesthesia: DUA Surgeon: Catina Leo Estimated Blood Loss (ml): 1 IV fluids (ml): 400 Pathology: other (LEFT CHEST WALL NODULES) Condition: stable Disposition: same day Indications for Procedure: nodule of concern left chest wall Operative Findings: nodules left chest wall Description of Procedure: The patient has a nodule on the left chest wall which is of concern for recurrent malignancy. The area was prepped using Betadine following induction of anesthesia. Wide excision was performed. Dissection posteriorly was onto the pectoralis muscle. The deep tissues were closed using 3-0 Vicryl suture. The skin is closed using 4-0 Monocryl. Steri-Strips applied. The patient tolerated the procedure in stable condition.
--- NOTE | 2022-03-06 09:20 | P.DS ---
Providers Attending physician: Catina Leo Primary care physician: Bradford Wallis Plan - Discharge Summary New Discharge Prescriptions: No Action Letrozole 2.5 mg PO QAM Nateglinide [Starlix] 60 mg PO HS Glimepiride [Amaryl] 1 mg PO BID Liraglutide [Victoza 2-Brian] 0.6 mg SQ DAILY Nitroglycerin Sl Tabs [Nitrostat] 0.4 mg SUBLINGUAL Q5M PRN #25 tab PRN Reason: Chest Pain Metoprolol Succinate (ER) [Toprol XL] 50 mg PO QAM Multivit/Folic Acid/Vit K1 [One-A-Day Women's 50 Plus Tab] 1 each PO QAM Aspirin 81 mg PO QAM Atorvastatin [Lipitor] 40 mg PO QAM Sacubitril/Valsartan [Entresto 24 mg-26 mg Tablet] 24 mg PO BID Spironolactone [Aldactone] 25 mg PO QAM Discharge Medication List Letrozole 2.5 mg PO QAM 12/04/17 [History] Nateglinide [Starlix] 60 mg PO HS 02/25/18 [History] Glimepiride [Amaryl] 1 mg PO BID 02/27/19 [History] Liraglutide [Victoza 2-Brian] 0.6 mg SQ DAILY 04/14/19 [History] Nitroglycerin Sl Tabs [Nitrostat] 0.4 mg SUBLINGUAL Q5M PRN #25 tab 04/22/19 [Rx] Metoprolol Succinate (ER) [Toprol XL] 50 mg PO QAM 06/22/19 [History] Multivit/Folic Acid/Vit K1 [One-A-Day Women's 50 Plus Tab] 1 each PO QAM 10/16/19 [History] Aspirin 81 mg PO QAM 10/30/19 [History] Atorvastatin [Lipitor] 40 mg PO QAM 10/30/19 [History] Sacubitril/Valsartan [Entresto 24 mg-26 mg Tablet] 24 mg PO BID 10/30/19 [History] Spironolactone [Aldactone] 25 mg PO QAM 10/30/19 [History] Follow up Appointment(s)/Referral(s): Catina Leo MD [STAFF PHYSICIAN] - 10 Days Activity/Diet/Wound Care/Special Instructions: may shower after 48 hours Discharge Disposition: HOME SELF-CARE
[2022-03-06 09:42] VITALS: BP 140/70; PULSE 73
== END 2022-03-06 10:10 | disposition home or self-care (01) ==
LOC: OR 07:23
PROVIDERS: ATTEND Surgery
DX: M79.89 Other specified soft tissue disorders (principal); R22.2 Localized swelling, mass and lump, trunk
CPT/HCPCS: 21552; 88305; J2250; J2001; J1100; J2405; J0690; J2704; J1644

== ENCOUNTER → 2022-03-23 | Outpatient (CLI) | payer MEDICARE, OTHER ==
--- NOTE | 2022-03-23 14:06 | P.PN ---
Progress Note - Text Progress Note Date: 03/23/22 Waleska is a 76-year-old female who is status post a left breast lumpectomy and radiation therapy in [place] approximately 10 years ago. She subsequently developed a recurrence in that breast and underwent a mastectomy. She has been doing well until recently when she noted a nodule in the left chest wall. She had had a right breast mammogram and [id number] diagnostic ultrasound of the right breast was recommended. This was performed on the same date and felt to be BIRADS 1. The patient underwent excision of the lesion on the left chest wall on [id number] which was nodular fat necrosis and fibrosis and scar. Negative for cancer. She is doing well at this time with no complaints. Physical Exam: Lungs: Clear Heart: Regular rate and rhythm Incision site clean and dry Plan: Follow-up 6 months for examination Right breast mammogram in 1 year CC: Dr. Bradford Wallis
== END | disposition home or self-care (01) ==
LOC: WWCWWP 13:06
PROVIDERS: ATTEND Surgery
DX: Z53.9 Procedure and treatment not carried out, unspecified reason (principal)

== ENCOUNTER → 2023-11-27 | Outpatient (CLI) | payer MEDICARE, OTHER ==
--- NOTE | 2023-11-27 15:42 | MM ---
Reason for Exam: Additional evaluation requested from prior study. Last screening mammogram was performed 10 month(s) ago. Patient History: Menarche at age 15. First Full-Term at age 24. Postmenopausal. Breast cancer, left, age 73. 2018, Mastectomy on the Left side. 2011, Lumpectomy on the Left side. 04/14/2019, Malignant Core Biopsy on the right side. 01/20/2019, Benign Core Biopsy on the left side. 2011, Radiation Therapy. 2011, Chemotherapy. Prior Study Comparison: 10/24/2020 Bilateral Screening Mammogram, [facility]. 02/12/2022 Right MG 3D diag mammo w/cad RT, [facility]. 02/14/2023 Right MG 3D diag mammo w/cad RT, [facility]. Tissue Density: Right: The breasts are extremely dense, which lowers the sensitivity of mammography. Findings: Analyzed By CAD. The pattern is stable Stable coarse calcifications are present. No suspicious groups of microcalcifications, spiculated or lobular masses, architectural distortion or other secondary signs of malignancy are mammographically apparent. Overall Assessment: Benign, BI-RAD 2 Management: Screening Mammogram of the right breast in 1 year. A negative mammogram report should not preclude additional follow up of suspicious palpable abnormalities. Patient should continue monthly self breast exam. A clinical breast exam by your physician is recommended on an annual basis and results should be correlated with mammographic findings. Note on Rebekah scores and lifetime risk: 1. A Rebekah score greater than 3% is considered moderate risk. If this is the case, consider specialist referral to assess eligibility for a risk reducing agent. 2. If overall lifetime risk for the development of breast cancer is 20% or higher, the patient may qualify for future screening with alternating mammogram and breast MRI. Electronically signed and approved by: Abdifatah Carey D.O. Radiologis
== END | disposition home or self-care (01) ==
LOC: RADMAMWWP 14:14
PROVIDERS: ATTEND Surgery
DX: Z85.3 Personal history of malignant neoplasm of breast (principal); Z78.0 Asymptomatic menopausal state; R92.341 Mammographic extreme density, right breast
CPT/HCPCS: 77065; G0279; 77061

== ENCOUNTER → 2024-02-21 | Outpatient (CLI) | payer MEDICARE, OTHER ==
[2024-02-21 08:18] VITALS: BP 196/84; PULSE 85; RESP 16; TEMP 98.1
--- NOTE | 2024-02-21 08:39 | P.PN ---
Subjective Progress Note Date: 02/21/24 Principal diagnosis: stage II left breast cancer 02-21-24 Principal diagnosis: left breast mastectomy Patient is seen with her who helps with the history. Waleska approximately 11 years ago underwent a lumpectomy and radiation therapy in [place] for a stage II left breast cancer. She underwent a left breast biopsy here in January 2019 which revealed atypia. She subsequently on [id number] underwent a needle local excisional biopsy of this area in the operating room. 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 Approximately 48 hours later she developed some shortness of breath and was admitted to the hospital. At that time she was anticoagulated and developed a hematoma. She underwent a cardiac cath which did not reveal anything necessitating stenting. Her case was presented at tumor board and it was recommended she undergo a left mastectomy which was preformed on 10-27-19. In [place] she initially underwent 4 cycles of chemotherpay and 4 cycles of Taxol given with Herceptin. After completion of the chemotherapy she had radiation and was then started on letrazole in the fall of 2009. Herceptin was continued her 1 year therapy completed in November 2010. Since that time she had been in observation until the most recent left breast diagnosis, in January 2019. She was started on Prolia on 06/18/2013 as a bone density revealed osteoporosis. The patient in 2021 had a lesion excised from her left chest wall, this was benign. The patient at this time has no complaints of lumps masses or nodules in her right breast. She has no complaints related to her right chest wall. At this time she is not taking letrazole. She is complaining of pain in the left upper arm for the past year. She states that it does not last for very long if she takes tylenol it resolves. It is sudden in nature in its onset, nothing that precipitates the pain. At times she does note some swelling in her left upper arm. She states that she puts a compression stocking on her arm at times and that does cause resolution of the pain. She also has tenderness of the left chest wall. right breast mammogram 11-27-23 BIRAD 2, personally reviewed Past surgical history: Left breast lumpectomy and sentinel node biopsy approximately 8 years ago Left breast excisional biopsy 04-14-19 Medical history: 1. Low ejection fraction 2. Diabetes 3. left hip fracture 4. uses a cane to walk Social history: Smoke: 5 cigarettes per day Alcohol: Negative Drugs: Negative - Constitutional Constitutional: Denies chills, Denies fever - EENT Eyes: denies blurred vision, denies pain Ears: deny: decreased hearing, tinnitus Ears, nose, mouth and throat: Denies headache, Denies sore throat - Breasts Breasts: bilateral: as per HPI - Cardiovascular Comment: Low ejection fraction - Respiratory Comment: Smoker/ 2cigarettes/day - Gastrointestinal Comment: history of ulcers - Genitourinary (Female) Genitourinary: Reports as per HPI, Denies dysuria, Denies hematuria - Menstruation Menstruation: Reports postmenopausal - Musculoskeletal Musculoskeletal: Reports muscle cramps - Integumentary Comment: Left breast at prior lumpectomy site with some drainage, excoriation of the lateral aspect - Neurological Neurological: Denies numbness, Denies weakness - Psychiatric Psychiatric: Denies anxiety, Denies depression - Endocrine Comment: Diabetes - Hematologic/Lymphatic Comment: baby aspirin - Allergic/Immunologic Allergic/Immunologic: Reports as per HPI Objective - Vital Signs Vital signs: Intake & Output 02/20/24 02/21/24 02/21/24 18:59 06:59 18:59 Weight 45.359 kg - Constitutional General appearance: Present: cooperative - EENT Eyes: Present: EOMI ENT: Present: hearing grossly normal - Neck Neck: Present: normal ROM - Respiratory Respiratory: bilateral: CTA - Cardiovascular Rhythm: regular Heart sounds: normal: S1, S2 - Integumentary Integumentary: Present: normal turgor - Psychiatric Psychiatric: Present: A&O x's 3, appropriate affect, intact judgment & insight - Additional findings Additional findings: Breast examination: Inspection: Patient status post left mastectomy, right breast grade 3 ptosis Palpation: Right breast: Multi-positional exam fibrocystic changes, no dominant masses or nodules of concern right axilla: no adenopathy of concern Left chest wall: No evidence of recurrent cancer, patient over the area of the incision and rib cage Left axilla: No adenopathy of concern No apparent swelling of the left extremity or lymphedema, when measuring the arm the circumference on the left is 29, and the circumference on the right is 27- 1/2 cm. The patient has good sensation throughout the left upper extremity. Assessment and Plan Assessment: Impression: 1. Patient status post left mastectomy had been treated for stage II left breast cancer [place] in approximately 2010. She underwent chemotherapy and Herceptin as well as radiation therapy. She developed recurrent disease and underwent a left breast mastectomy patient has no evidence of recurrent cancer at this time. She was on letrazole which has been stopped. 2. Low ejection fraction 3. Diabetes 4. Patient fell last year and uses a cane now for ambulation 5. a lesion on the left chest wall was excised in 2021/ fat necrosis 6. right breast mammogram 11-27-23 BIRAD 2 personally reviewed 7. Probable symptomatic left upper extremity lymphedema 8. Chest wall tenderness Plan: 1. Repeat right breast mammogram November 2024 2. Follow up sooner if any questions or concerns 3. Chest x-ray and radiograph of the left chest wall anterior ribs rule out any bony lesion 4. Bone Scan 5. Appointment with physical therapy for lymphedema treatment and measuring for a sleeve 6. Follow-up after above completed Cc: Dr. Bradford Wallis
== END ==
LOC: WWCWWP 07:54 → EDBD 08:00
PROVIDERS: ATTEND Surgery
DX: Z85.3 Personal history of malignant neoplasm of breast

== ENCOUNTER → 2024-11-25 | Outpatient (CLI) | payer MEDICARE, OTHER ==
--- NOTE | 2024-11-25 10:58 | MM ---
Reason for Exam: Hx of breast cancer, conservation therapy. Last screening mammogram was performed 12 month(s) ago. Patient History: Menarche at age 15. First Full-Term at age 24. Postmenopausal. Breast cancer, left, age 73. 2018, Mastectomy on the Left side. 2011, Lumpectomy on the Left side. 04/14/2019, Malignant Core Biopsy on the left side. 01/20/2019, Benign Core Biopsy on the left side. 2011, Radiation Therapy. 2011, Chemotherapy. Prior Study Comparison: 02/12/2022 Right MG 3D diag mammo w/cad RT, [facility]. 02/14/2023 Right MG 3D diag mammo w/cad RT, [facility]. 11/27/2023 Right MG 3D diag mammo w/cad RT, [facility]. Tissue Density: Right: The breasts are extremely dense, which lowers the sensitivity of mammography. Findings: Analyzed By CAD. A few benign-appearing dystrophic calcifications scattered throughout the right breast are redemonstrated. No suspicious new mass or distortion in the right breast. Overall Assessment: Benign, BI-RAD 2 Management: Screening Mammogram of the right breast in 1 year. Some advise annual ultrasound surveillance in patients with background dense tissue. Results were given to the patient verbally at the time of exam. Patient should continue monthly self-breast exams. A clinical breast exam by your physician is recommended on an annual basis. This exam should not preclude additional follow-up of suspicious palpable abnormalities. Note on Rebekah scores and lifetime risk: 1. A Rebekah score greater than 3% is considered moderate risk. If this is the case, consider specialist referral to assess eligibility for a risk reducing agent. 2. If overall lifetime risk for the development of breast cancer is 20% or higher, the patient may qualify for future screening with alternating mammogram and breast MRI. [facility], , 11/25/2024 10:55 AM. Electronically signed and approved by: Sam Ureña M.D.
== END | disposition home or self-care (01) ==
LOC: RADMAMWWP 10:30
PROVIDERS: ATTEND Surgery
DX: R92.341 Mammographic extreme density, right breast (principal); Z85.3 Personal history of malignant neoplasm of breast; Z78.0 Asymptomatic menopausal state
CPT/HCPCS: 77065; G0279; 77061

== ENCOUNTER → 2024-12-03 | Outpatient (CLI) | payer MEDICARE, OTHER ==
[2024-12-03 14:18] VITALS: BP 168/71; PULSE 76; RESP 16; TEMP 97.6
--- NOTE | 2024-12-03 14:20 | P.PN ---
Subjective Progress Note Date: 12/03/24 Principal diagnosis: stage II left breast cancer 12-03-24 Principal diagnosis: stage II left breast cancer 02-21-24 Principal diagnosis: left breast mastectomy Patient is seen with her who helps with the history. Waleska approximately 11 years ago underwent a lumpectomy and radiation therapy in [place] for a stage II left breast cancer. She underwent a left breast biopsy here in January 2019 which revealed atypia. She subsequently on [id number] underwent a needle local excisional biopsy of this area in the operating room. 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 Approximately 48 hours later she developed some shortness of breath and was admitted to the hospital. At that time she was anticoagulated and developed a hematoma. She underwent a cardiac cath which did not reveal anything necessitating stenting. Her case was presented at tumor board and it was recommended she undergo a left mastectomy which was preformed on 10-27-19. In [place] she initially underwent 4 cycles of chemotherpay and 4 cycles of Taxol given with Herceptin. After completion of the chemotherapy she had radiation and was then started on letrazole in the fall of 2009. Herceptin was continued her 1 year therapy completed in November 2010. Since that time she had been in observation until the most recent left breast diagnosis, in January 2019. She was started on Prolia on 06/18/2013 as a bone density revealed osteoporosis. The patient in 2021 had a lesion excised from her left chest wall, this was benign. The patient at this time has no complaints of lumps masses or nodules in her right breast. She has no complaints related to her right chest wall. At this time she is not taking letrazole. She is complaining of pain in the left upper arm for the past year. She states that it does not last for very long if she takes tylenol it resolves. It is sudden in nature in its onset, nothing that precipitates the pain. At times she does note some swelling in her left upper arm. She states that she puts a compression stocking on her arm at times and that does cause resolution of the pain. She also has tenderness of the left chest wall. right breast mammogram 11-25-24 BIRAD 2, personally reviewed Past surgical history: Left breast lumpectomy and sentinel node biopsy approximately 8 years ago Left breast excisional biopsy 04-14-19 left mastectomy Medical history: 1. Low ejection fraction 2. Diabetes 3. left hip fracture 4. uses a cane to walk 5. pain left upper extremity Social history: Smoke: 5 cigarettes per day/ stopped last year Alcohol: Negative Drugs: Negative - Constitutional Constitutional: Denies chills, Denies fever - EENT Eyes: denies blurred vision, denies pain Ears: deny: decreased hearing, tinnitus Ears, nose, mouth and throat: Denies headache, Denies sore throat - Breasts Breasts: bilateral: as per HPI - Cardiovascular Comment: Low ejection fraction - Respiratory Comment: Smoker/ 2cigarettes/day - Gastrointestinal Comment: history of ulcers - Genitourinary (Female) Genitourinary: Reports as per HPI, Denies dysuria, Denies hematuria - Menstruation Menstruation: Reports postmenopausal - Musculoskeletal Musculoskeletal: Reports muscle cramps - Integumentary Comment: Left breast at prior lumpectomy site with some drainage, excoriation of the lateral aspect - Neurological Neurological: Denies numbness, Denies weakness - Psychiatric Psychiatric: Denies anxiety, Denies depression - Endocrine Comment: Diabetes - Hematologic/Lymphatic Comment: baby aspirin - Allergic/Immunologic Allergic/Immunologic: Reports as per HPI Objective - Constitutional General appearance: Present: cooperative - EENT Eyes: Present: EOMI ENT: Present: hearing grossly normal - Neck Neck: Present: normal ROM - Respiratory Respiratory: bilateral: CTA - Cardiovascular Rhythm: regular Heart sounds: normal: S1, S2 - Integumentary Integumentary: Present: normal turgor - Musculoskeletal Musculoskeletal: Present: gait normal - Psychiatric Psychiatric: Present: A&O x's 3, appropriate affect, intact judgment & insight - Additional findings Additional findings: Breast examination: Inspection: Patient status post left mastectomy, right breast grade 3 ptosis Palpation: Right breast: Multi-positional exam fibrocystic changes, no dominant masses or nodules of concern right axilla: no adenopathy of concern Left chest wall: No evidence of recurrent cancer, patient over the area of the incision and rib cage Left axilla: No adenopathy of concern Assessment and Plan Assessment: Impression: 1. Patient status post left mastectomy had been treated for stage II left breast cancer [place] in approximately 2010. She underwent chemotherapy and Herceptin as well as radiation therapy. She developed recurrent disease and underwent a left breast mastectomy patient has no evidence of recurrent cancer at this time. She was on letrazole which has been stopped. 2. Low ejection fraction 3. Diabetes 4. Patient fell two years ago and uses a cane now for ambulation 5. a lesion on the left chest wall was excised in 2021/ fat necrosis 6. right breast mammogram 11-25-24 TATYAD 2 personally reviewed 7. Probable symptomatic left upper extremity lymphedema 8. Chest wall tenderness Plan: 1. Repeat right breast mammogram November 2025 2. Follow up sooner if any questions or concerns 3. Appointment with physical therapy for lymphedema treatment and measuring for a sleeve/ pain left arm/shoulder Cc: Dr. Bradford Wallis
== END ==
LOC: WWCWWP 13:16
PROVIDERS: ATTEND Surgery
DX: C50.912 Malignant neoplasm of unspecified site of left female breast (principal); E11.9 Type 2 diabetes mellitus without complications; M79.89 Other specified soft tissue disorders; F17.210 Nicotine dependence, cigarettes, uncomplicated; R07.89 Other chest pain; W19.XXXA Unspecified fall, initial encounter; Z90.12 Acquired absence of left breast and nipple